=== PATIENT | male | born 1945 | race Caucasian/White ===

== ENCOUNTER 2017-04-29 14:06 | Inpatient (IN) | payer OTHER ==
[~2017-04-29] VITALS: Ht 152.4 cm; Wt 57.6 kg
[~2017-04-29 14:06] MED LIST: ACETAMINOPHEN325 M1 PO; ADVAIR HFA 115-12 GM IH; ASPIR 8181 MG PO; AUGMENTIN400 MG/53 PO; AVODART OR; AVODART PO; AZITHROMYCIN 2250 MG PO; CARDURA1 MG PO; CARDURA4 MG PO; CEFUROXIME250 MG PO; CIPROFLOXACIN250 M2 PO; COMBIVENT INH; DARVOCET-N 1001 EACH PO; FUROSEMIDE 40 M40 M1 PO; LEVAQUIN 500 M500 M2 PO; LEVAQUIN 750 M750 MG PO; LEVAQUIN PO; LOPRESSOR25 PO; MIRALAX17 G1 PO; MUCINEX600 MG PO; OCEAN45 ML NS; PERCOCET 5-3251 EACH PO; PREDNISONE 10 M10 M1 PO; PREDNISONE 10 M10 MG PO; PREDNISONE 20 M20 M1 PO; PREDNISONE50 MG PO; PYRIDIUM200 M1 PO; SENNA-DOCUSATE1 EACH PO; SINGULAIR 10 MG10 M1 PO; SYMBICORT160 MCG/4. INH; TRAMADOL 50 MG50 MG PO; VICODIN 5-5001 EACH PO; ZOLOFT 50 MG TA50 M1 PO; ZPAK PO; [UNRECOGNIZED DRUG - OTHER]
[2017-04-29 14:48] LABS: ABSOLUTE BASOPHILS 0.2 thou/uL (0.0-0.2); ABSOLUTE EOSINOPHILS 0.3 thou/uL (0.0-0.7); ABSOLUTE LYMPHOCYTES 2.2 thou/uL (0.8-5.3); ABSOLUTE MONOCYTES 1.3 thou/uL (0.0-1.2); BASOPHILS 1.2 %; EOSINOPHILS 1.4 %; HEMATOCRIT 38.1 % (42.0-52.0); HEMOGLOBIN 12.8 gm/dL (14.0-18.0); LYMPHOCYTES 12.3 %; MCH 30.5 pg (26.0-34.0); MCHC 33.4 g/dL (28.0-37.0); MCV 91.2 fL (80.0-100.0); MONOCYTES 7.3 %; MPV 9.4 fl. (7.2-11.1); NUCLEATED RBCS 0 /100WBC; PLATELET COUNT* 183 thou/uL (150-400); POLYS 77.8 %; RBC 4.18 mil/uL (4.50-6.00); RDW-CV 14.1 % (10.5-14.5)
[2017-04-29 14:54] LABS: ANION GAP 5 mmol/L (7-16); BUN 23 mg/dL (7-18); CALCIUM 9.2 mg/dL (8.5-10.1); CHLORIDE 102 mmol/L (98-107); CO2 31 mmol/L (21-32); GLUCOSE 146 mg/dL (70-99); POTASSIUM 4.4 mmol/L (3.5-5.1); SODIUM 138 mmol/L (136-145)
[2017-04-29 15:05] LABS: ALBUMIN 3.2 g/dL (3.4-5.0); ALKALINE PHOSPHATASE 78 U/L (46-116); LIPASE 240 U/L (73-393); NT-PRO BRAIN NAT PEPTIDE 70 pg/mL (<300); SGOT 19 U/L (15-37); SGPT 16 U/L (30-65); TOTAL BILIRUBIN 0.3 mg/dL (<0.1-1.0); TOTAL PROTEIN 7.1 g/dL (6.4-8.2); TROPONIN-I LEVEL <0.06 ng/mL (<0.06)
[2017-04-29 15:07] LABS: APTT 25.9 Seconds (25.0-31.3); PROTIME 9.7 Seconds (9.20-11.50)
--- NOTE | 2017-04-29 17:47 | EKG ---
[place] [address] ELECTROCARDIOGRAM REPORT Name: BILLYBHARAT DUGAN Room: [facility].#: [id number] Admission: 04/29/17 Attend Phys: Discharge: Date of : 41 Report #: [id number] THIS REPORT FOR: //name// [facility] ED Test Date: 2017-04-29 Test Time: 14:12:30 Pat Name: BHARAT CERVANTES Department: Room: Gender: Manager Supplier: Hardik CANO : 1945 Requested By: Carina Meraz Order Number: [id number] MD: Breezy Guy Measurements Intervals [place] Rate: 84 P: 77 OR: 107 QRS: 84 QRSD: 98 T: 61 QT: 353 QTc: 418 Interpretive Statements Sinus rhythm Short OR interval Borderline right axis deviation Baseline wander in lead(s) V6 Compared to ECG 04/07/2017 00:40:32 No significant changes Electronically Signed On 04-29-2017 17:47:48 PRIMARY CLINICIAN by Breezy Guy [email or web address] <ELECTRONICALLY SIGNED> By: Breezy Guy MD, [facility] 04/29/17 1747 1412 141 Breezy Guy MD, FAC /EPI
[2017-04-29 19:02] LABS: BE -1.2 mmol/L (-2 to +3); HCO3 23.6 mmol/L (22.0-26.0); PCO2 40.2 mmHg (35.0-45.0); pH 7.387 (7.340-7.450)
[2017-04-29 19:46] VITALS: BP 113/61
[2017-04-29 20:00] VITALS: BP 113/73
[2017-04-30] VITALS (7 sets, daily range): BP systolic 95–138; BP diastolic 59–82
--- NOTE | 2017-04-30 06:54 | NUR ---
TRAMADOL GIVEN, PATIENT SLEEPING. WILL CONT. TO MONITOR PAIN AND BREATHING.
--- NOTE | 2017-04-30 07:50 | NUR ---
RECEIVED REPORT. ASSUMED CARE OF PT AT 0730. VSS. CARDIAC MONITORING IN PLACE SR-ST. AM ASSESSMENT AND VITALS COMPLETED CHARTED. PT ALERT AND OREINTED. PT INITALLY ON RA-O2 SAT CHECKED AND PT WAS 79-80% ON RA. O2 2L PLACED AND PT'S O2 SAT INCREASED TO 93-94%. PT REPORTS SOA WITH EXERTION. PT ALSO REPORTS UPPER LEFT SIDED CHEST PAIN WITH BREATHING. NOTED VERY DIMINSHED/ABSENT LUNG SOUNDS ON THE LEFT SIDE. DR. FREEMAN PAGED. AWATING CALL BACK. PT DOES HAVE PULMONARY CONSULT. PT IS NPO AT THIS TIME. UNCLEAR REASONS FOR NPO WILL CLARIFY WITH ROUNDING PHYSICIAN. PT UP WITH STAND BY ASSISTANCE TO BATHROOM. FALL PERCATIONS IN PLACE. CALL LIGHT IS WITHIN REACH. WILL CONTINUE TO MONITOR FOR DURAIOTN OF SHIFT.
--- NOTE | 2017-04-30 10:28 | NUR ---
MET WITH PT TO DISCUSS HOME SITUATION/DC PLANNING. PT KNOWN TO CM FROM HOSPITAL STAY IN [place]. HE LIVES WITH HIS . PT USES O2 AND NEBULIZER THRU [facility]. HE HAD HH WITH [facility] BUT PER [facility], THEY ONLY SAW HIM FOR A SHORT TIME. 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 PT WAS PAINFUL AND WANTED TO SEE NURSE, SHE WAS CALLED. WILL FOLLOW
--- NOTE | 2017-04-30 17:14 | NUR ---
VSS. CARDIAC MONTIRING IN PLACE SR THIS SHIFT. PT REMAINS ON 2L PER NC. PT PARTIALLY PROGRESSING TOWARDS GOALS. PT REMAINS ALERT AND OREINTED. PT HAS HAD CONTINUED COMPLAINTS OF LEFT CHEST/SIDE PAIN- PRN TRAMADOL AND LIDOCAINE PATCH APPLIED. PT REPORTS RELIEF WITH LIDOCAINE PATCH. PT HAS HAD CONTINUED COMPLAINTS OF NAUSEA WITH EPISODES OF VOMITTING. PT IS UP WITH STAND BY ASSISTANCE TO BATHROOM. IV NOW SALINE LOCKCED. CALL LIGHT IS WITHIN REACH. WILL CONTINUE TO MONTIOR FOR DURAITON OF SHFIT.
[2017-05-01 03:37] VITALS: BP 88/53
--- NOTE | 2017-05-01 03:45 | NUR ---
PATIENT RESTING THROUGHOUT THE NIGHT. TRAMADOL FOR PAIN. REPORTS EFFECTIVE. NO SIGN OF DISTRESS. CONT. O2 AT 2 LITERS. WILL CONT. TO MONITOR.
[2017-05-01 07:45] VITALS: BP 86/59
--- NOTE | 2017-05-01 07:45 | NUR ---
RECEIVED REPORT. ASSUMED CARE OF PT AT 0730. PT'S BP LOW THIS AM. APPEARS PT WAS LOW THROUGHOUT THE NIGHT WELL. PT AFEBRILE. PT ALERT AND OREINTED X4 BUT FORGETFUL. PT ON 2L PER NC WIHT O2 SAT AT 93%. PT IS MORE CONVERSATIONAL THIS AM. PT REPORTS INTERMITTENT PAIN TO LEFT CHEST/SIDE THORUGHOUT THE NIGHT BUT REPORTS IT HAS IMPORVED. INFORMED PT TO CALL FOR ASSISTANCE WHEN NEEDING TO GET UP DUE TO LOW BP. PT COMMUNICATES UNDERSTANDING. PT AND SPOUSE INFORMED OF PLAN OF CARE. IV SALINE LOCKED. CALL LIGHT IS WITHIN REACH. WILL CONTINUE TO MONTIOR.
[2017-05-01 07:53] VITALS: BP 90/61
[2017-05-01 10:32] LABS: HEMATOCRIT 33.3 % (42.0-52.0); HEMOGLOBIN 11.1 gm/dL (14.0-18.0); MCHC 33.2 g/dL (28.0-37.0); MCV 90.3 fL (80.0-100.0); MPV 8.1 fl. (7.2-11.1); PLATELET COUNT* 252 thou/uL (150-400); RBC 3.69 mil/uL (4.50-6.00); RDW-CV 13.3 % (10.5-14.5); WBC 26.9 thou/uL (4.0-11.0)
[2017-05-01 10:39] LABS: CALCIUM 8.9 mg/dL (8.5-10.1); CREATININE 1.1 mg/dL (0.6-1.3); POTASSIUM 3.7 mmol/L (3.5-5.1)
--- NOTE | 2017-05-01 11:22 | CON ---
[address] [address] CONSULTATION Name: BHARAT CERVANTES Room: [address] ADM IN M.R.#: [id number] Admission: 04/29/17 Attend Phys: Vijay Scott Discharge: Date of : 41 Report #: [id number] THIS REPORT FOR: //name// CC: Jed Gonzalez REASON FOR CONSULTATION: Abnormal CT scan. HISTORY OF PRESENT ILLNESS: This is a 72-year-old male patient admitted to the hospital after he presented to the Emergency Room with sharp left-sided chest pain that he described as very severe, although he reported it was started in the morning on the day of hospitalization, but his told me it had been going on for a month. He was admitted to this facility in March with similar complaint. He was found to have pneumonia at that time. The pain is mostly in the left upper part of the chest anteriorly and gets worse with deep breathing. He denied any feeling shortness of breath or sputum production or wheezes and he is on 3 liters oxygen at home. He takes tramadol at home for pain. He denied nausea or vomiting or diaphoresis; however, this morning, he had some feeling of nausea. He had multiple CTs in the last few months, reviewed and we will discuss below. REVIEW OF SYSTEMS: He denied lower extremity edema, calf tenderness. He denied abdominal pain. He denied hemoptysis or increasing cough. The rest of the review system was negative. PAST MEDICAL HISTORY: 1. History of COPD, chronic respiratory failure on 3 liters oxygen at home at baseline. 2. History of dilated systolic congestive heart failure, cardiomyopathy. 3. History of bladder tumor. 4. History of previous transurethral resection of prostate. PAST SURGICAL HISTORY: Transurethral resection of prostate. ALLERGIES: HYDROCODONE AND TAMSULOSIN. FAMILY HISTORY: Negative for cardiac disease. SOCIAL HISTORY: Ex-smoker, quit around 10 years ago. Does not drink alcohol excessively, does not abuse drugs. HOME MEDICATIONS: He is on DuoNeb, tramadol, prednisone and he finished the course of Augmentin. PHYSICAL EXAMINATION: GENERAL: He looks in discomfort and pain and [place] [address] CONSULTATION Name: BHARAT CERVANTES Room: [address]#: [id number] Admission: 04/29/17 Attend Phys: Vijay Scott Discharge: Date of : 41 Report #: [id number] evaluation. He is on 2 liters oxygen. VITAL SIGNS: Blood pressure 138/82, breathing 20 times a minute, temperature 37.1. HEENT: Head normocephalic, atraumatic. Oral cavity moist mucous membranes. Mallampati of 2. External ear looks healthy and normal. Pupils reactive to light. No jaundice, not pale. He is hard of hearing NECK: Supple. No palpable lymph node. No palpable thyroid. Trachea is central. CHEST: Diminished air movement bilaterally with prolonged expiratory phase. No active wheezes. Some crackles at the right lung apex. HEART: S1, S2, no murmur. Palpation demonstrated tenderness in the left upper part of his chest. ABDOMEN: Benign, soft, lax, nontender, positive bowel sounds. LOWER EXTREMITIES: No edema. No calf tenderness. NEUROLOGIC: Awake, alert, oriented, moving 4 extremities spontaneously. No focal weakness. LYMPHATICS: No palpable lymph node. SKIN: Normal for age and race. PSYCHIATRIC: Mood and affect is good. Insight and judgment, looks anxious. LABORATORY DATA: His chest x-ray demonstrated right upper lobe consolidation with atelectasis. CT of the chest did not show pulmonary embolus, although it showed severe emphysematous changes and right upper lobe consolidation, very dense infiltrate that was reviewed with Radiology. It is consistent with pneumonia, although underlying mass could not be excluded. IMPRESSION: 1. Pneumonia. 2. Chronic obstructive pulmonary disease exacerbation. 3. Pulmonary infiltrate. PLAN: I discussed with Radiology. I reviewed the CT scan with the Radiology. This infiltrates consistent with pneumonia, although underlying mass cannot be excluded. I would treat as pneumonia at this point and we will treat him for COPD exacerbation. He needs a followup imaging after 8 weeks to ensure that the infiltrate was away. He is a high risk for intervention and biopsy at this point given the significant emphysematous changes. At one point, PET scan will be an option depending on the finding on the repeat imaging. I did discuss this in detail with the patient and his . However, the pain that he has in the left upper part of the chest that is described worsen with deep breathing and movement, I could not explain it based on the current findings. Recommend pain control. I will start him on Zofran. I will broader his antibiotic coverage. [address] [address] CONSULTATION Name: BHARAT CERVANTES Room: [address] IN M.R.#: [id number] Admission: 04/29/17 Attend Phys: Vijay Scott Discharge: Date of : 41 Report #: [id number] Thank you for this consult. <ELECTRONICALLY SIGNED> By: Familia Santos MD 05/01/17 1122 1123 0002Familia Santos MD /nt
--- NOTE | 2017-05-01 11:26 | CON ---
[address] [address] CONSULTATION Name: BHARAT CERVANTES Room: [address] IN M.R.#: [id number] Admission: 04/29/17 Attend Phys: Vijay Scott Discharge: Date of : 41 Report #: [id number] THIS REPORT FOR: //name// CC: Jed Gonzalez DATE OF SERVICE: 04/30/2017 ATTENDING PHYSICIAN: Dr. Gonzalez REASON FOR EVALUATION: Chronic pneumonitis, right side, possible postobstructive component. HISTORY OF PRESENT ILLNESS: Chart reviewed, patient examined. This is a 72 year old whom I am familiar with. He has been hospitalized at least 3 times in the last month and has underlying COPD and borderline oxygen requirement. He is admitted twice previously with what was felt to be pneumonitis. Interestingly, x-ray evidence suggests this is on the right side, although he has repeatedly had left-sided chest pain and had been treated, seemingly had improved, but worsened after he was discharged. It is not clear if he has had fevers. He has had very little cough and really minimal production. He has had a poor appetite and weight loss. Empirically started on combination broad-spectrum parenteral therapy with piperacillin, tazobactam and vancomycin. Pulmonary evaluation is pending. ALLERGIES: HYDROCODONE AND TAMSULOSIN. CURRENT MEDICATIONS: Include vancomycin, budesonide, ipratropium-albuterol inhaler, lidocaine patch, methylprednisolone and Zosyn. PAST MEDICAL HISTORY: History of COPD, history of cardiomyopathy with congestive heart failure, bladder tumor and previous transurethral resection of the prostate. FAMILY HISTORY: Available in the chart. REVIEW OF SYSTEMS: As above. PHYSICAL EXAMINATION: GENERAL: He appears chronically ill, undernourished with an acute component, is in vfta-aj-aavesarq distress. He has got significant hearing deficits as well. He is undernourished. VITAL SIGNS: Temperature 98.8, pulse 103, respirations 22 and blood pressure 138/82. SKIN: Warm, dry and no rashes. [place]ENT: [place] [address] CONSULTATION Name: BHARAT CERVANTES Room: [address] IN .R.#: [id number] Admission: 04/29/17 Attend Phys: Vijay Scott Discharge: Date of : 41 Report #: [id number] NECK: Supple. LUNGS: Diminished breath sounds and scattered crackles. HEART: Regular. I do not appreciate a murmur. There is some perhaps reproducible left-sided chest wall tenderness to palpation. ABDOMEN: Soft, nontender and nondistended. GENITOURINARY: Deferred. RECTAL: Deferred. LABORATORY DATA: Blood cultures sterile thus far. Lactic acid 0.7. ABGs: pH 7.387, pCO2 of 40.2, pO2 of 88.0 on 2 liters. CTA chest showed severe emphysematous changes. No evidence of PE, right upper lung mass or infiltrate, bilateral adrenal hyperplasia. Chest x-ray showed focal right upper lobe consolidation and volume loss. Electrolytes: Sodium 138, potassium 4.4, chloride 102, bicarbonate is 31, anion gap of 5, BUN and creatinine 23 and 1.0 and glucose of 146. LFTs are unremarkable. Albumin of 3.2, total protein of 7.1, estimated GFR of 73. CBC: White count of 18.0, H and H 12.8 and 38.1, platelets of 183 and a monocytosis of 1300. ASSESSMENT: Consolidative process, right upper lobe. Interestingly, he has left-sided chest pain. We will await pulmonary evaluation. I think given the three recent hospitalizations now may be became more invasive. Consider diagnostic as well as a therapeutic bronchoscopy. We will continue empiric antimicrobial therapy at this point. Seemingly is not a situation where he will be able to clear it with expectorating sputum. I discussed with the patient's spouse. <ELECTRONICALLY SIGNED> By: Matthew Eason MD 05/01/17 1126 1533 0100Jorandall Eason MD /nt
[2017-05-01 11:54] LABS: URINE BILIRUBIN NEGATIVE (Negative); URINE BLOOD 1+ (Negative); URINE CLARITY CLEAR; URINE COLOR DARK YELLOW; URINE GLUCOSE-RANDOM 1+ (Negative); URINE KETONES TRACE (Negative); URINE LEUKOCYTES NEGATIVE (Negative); URINE NITRITE NEGATIVE (Negative); URINE PROTEIN NEGATIVE (Negative); URINE SPECIFIC GRAVITY >= 1.030 (1.005-1.030); URINE UROBILINOGEN 0.2 E.U./dl (0.2-1.0)
[2017-05-01 12:16] LABS: SQUAMOUS 4-10 Moderate /LPF (0-3)
[2017-05-01 12:17] LABS: BACTERIA 1-9 Few /HPF (None Seen); CRYSTALS None Seen /LPF (None Seen); HYALINE CASTS 0-3 Few /LPF (None Seen); URINE RBC 0-2 Rare /HPF (0-2); URINE WBC None Seen /HPF (0-5)
[2017-05-01 14:32] LABS: ABSOLUTE MONOCYTES 0.3 thou/uL (0.0-1.2); PLATELET ESTIMATE ADEQUATE
[2017-05-01 14:33] LABS: ABSOLUTE LYMPHOCYTES 0.3 thou/uL (0.8-5.3); ABSOLUTE NEUTROPHILS 26.4 thou/uL (1.6-8.1); CLUMPED PLTS FEW
[2017-05-01 16:17] VITALS: BP 92/59
--- NOTE | 2017-05-01 17:46 | NUR ---
VSS. CARDIAC MONTIORING IN PLACE WITH NO CHANGES THIS SHIFT. PT REMAINS ALERT AND OREINTED. PT PROGRESSING TOWARDS GOALS. PT REMAINS ON 2L PER NC. IVF INITITED THIS SHIFT. PT'S PAIN WELL MANAGED WITH TRAMADOL THIS SHFIT. APPEARS PT HAS BEEN HAVING NAUSEA WITH VOMITING ASSOCIATED WITH MOVEMENTS THIS SHIFT WITHOUT RELIEF FROM ZOFRAN. PHYSICIAN NOTIED. NO NW ORDERS AT THIS TIME. PT IS UP WITH STAND BY ASSISTANCE TO BATHROOM. URINE SAMPLE AND MRSA SWAB SENT TO LAB. PT INFORMED OF PLAN OF CARE. CALL LIGHT IS WITHIN REACH. WILL CONTINUE OT MOTNIOR FOR DURATION OF SHIFT.
[2017-05-01 20:00] VITALS: BP 134/60; BP 88/55
[2017-05-01 23:41] VITALS: BP 90/50
[2017-05-02 03:49] VITALS: BP 87/60
--- NOTE | 2017-05-02 05:09 | NUR ---
CONT. ABX FOR PNEUMONIA. ALERT AND ORIENTED X 4. CONT. WITH RESP TXMTS. NO COMPLAINTS OF PAIN AFTER TRAMADOL AT BEGINNING OF SHIFT. WILL CONT. PLAN OF CARE.
--- NOTE | 2017-05-02 08:00 | NUR ---
RECEIVED REPORT. ASSUMED CARE OF PT AT 0730. VSS. CARDIAC MONTIORING IN PLACE SR. AM ASSESSMENT AND VITALS COMPLETED CHARTED. PT ALERT AND ORIENTED. PT APPERAS TO BE MORE IRRITABLE THIS AM. PT ON 2L PER NC WITH O2 SAT AT 90%. PT REPORTS INTERMITTENT PAIN TO LEFT SIDE OF CHEST. PRN PAIN MEDS AND LIDOCAINE PATCH GIVEN. PT IS UP AD MICHELLE IN ROOM. IVF INFUSING PER ORDERS. PT AND SPOUSE INFOMRED OF PLAN OF CARE. CALL LIGHT IS WITHIN REACH. WILL CONTINUE TO MONTIOR FOR DURAITON OF SHIFT.
[2017-05-02 08:30] VITALS: BP 97/65
[2017-05-02 11:30] VITALS: BP 101/69
[2017-05-02 15:30] VITALS: BP 96/64
--- NOTE | 2017-05-02 15:50 | NUR ---
PT. DECLINED O.T. EVAL STATING HE WAS INDEPENDENT WITH ADLS. PER NURSING NOTES, PT. HAS BEEN UP AD MICHELLE IN ROOM. NO O.T. SERVICES ARE INDICATED AT THIS TIME.
[2017-05-02 15:54] LABS: HEMATOCRIT 31.9 % (42.0-52.0); HEMOGLOBIN 10.5 gm/dL (14.0-18.0); MCHC 32.9 g/dL (28.0-37.0); MPV 8.6 fl. (7.2-11.1); RBC 3.5 mil/uL (4.50-6.00); RDW-CV 13.9 % (10.5-14.5); WBC 27.9 thou/uL (4.0-11.0)
--- NOTE | 2017-05-02 17:17 | NUR ---
VSS. CARDIAC MONTIORING IN PLACE WITH NO CHANGES THIS SHIFT. PT SOMEWHAT PROGRESSING TOWARDS GOALS. PT REMAINS ON 2L PER NC. IVF INFUSING-BOLUS GIVEN THIS SHIFT DUE TO INCREASED LACTIC ACID PER ORDERS. PT'S WBC COUNT INCREASING AND CXR SHOWS DEVELOPED INFLITRATE/EDEMA ON THE LEFT CHEST DR. FISH AND DR. [place] INFORMED. PT'S PAIN WELL MANAGED WITH TRAMADOL THIS SHIFT. PT IS UP WITH STAND BY ASSISTANCE TO BATHROOM. PT PLANNED TO HAVE BRONCH ON FRIDAY. PT AND SPOUSE INFORMED OF PLAN OF CARE. THEY COMMUNCIATE UNDERSTANDING. HOURLY ROUNDING. CALL LIGHT IS WITHIN REACH. WILL CONTINUE TO MONITOR FOR DURAITON OF SHFIT.
[2017-05-02 19:30] VITALS: BP 127/86
[2017-05-03] VITALS (12 sets, daily range): BP systolic 75–132; BP diastolic 56–88
--- NOTE | 2017-05-03 04:36 | NUR ---
PT UP TO USE RESTROOM AT 0350. PT SHORT OF BREATH UPON RETURING TO BED AND ASKED FOR BREATHING TREATMENT. RT ADMINISTERED DUONEB TREATMENT. RT SUGGESTED IV FLUIDS MAY BE CAUSING FLUID OVERLOAD. IV FLUIDS STOPPED AT 0415. CALLED DR LANDAVERDE AND RECIEVED ORDERS FOR STAT PORTABLE CHEST XRAY, PRN DUONEB TREATMENTS AND HOLD IV FLUIDS.
--- NOTE | 2017-05-03 04:40 | NUR ---
RADIOLOGY IN ROOM AT THIS TIME TO DO PCXR. PT BREATHING IMPROVED. PT STATES BREATHING TREATMENT HELPED.
[2017-05-03 04:41] LABS: HEMATOCRIT 33.6 % (42.0-52.0); HEMOGLOBIN 11.1 gm/dL (14.0-18.0); MCHC 33.1 g/dL (28.0-37.0); MCV 90.7 fL (80.0-100.0); MPV 8.6 fl. (7.2-11.1); RBC 3.71 mil/uL (4.50-6.00); RDW-CV 14.1 % (10.5-14.5); WBC 20.7 thou/uL (4.0-11.0)
--- NOTE | 2017-05-03 05:04 | NUR ---
CALLED DR LNADAVERDE AND REPORTED DAILY WEIGHT. RECIEVED ORDER FOR IV LASIX.
[2017-05-03 05:24] LABS: ALBUMIN 2.3 g/dL (3.4-5.0); CALCIUM 8.6 mg/dL (8.5-10.1); CREATININE 0.9 mg/dL (0.6-1.3); MAGNESIUM 2.1 mg/dL (1.8-2.4); POTASSIUM 4.3 mmol/L (3.5-5.1); TOTAL BILIRUBIN 0.3 mg/dL (<0.1-1.0); TOTAL PROTEIN 6.2 g/dL (6.4-8.2)
--- NOTE | 2017-05-03 05:28 | NUR ---
LAIX NOT AVAILABLE IN [facility] YET. SPOKE WITH PHARMACIST TO EXPEDITE ORDER.
--- NOTE | 2017-05-03 05:38 | NUR ---
IV LASIX GIVEN. PT INSTRUCTED TO USE URINAL FOR ACCURATE OUTPUT.
--- NOTE | 2017-05-03 07:00 | NUR ---
PT REPORTED SEVERE PAIN IN LOWER ABDOMEN. BLADDER SCAN SHOWED > 1100. INSERTED 16 SAMI COUDE CATHETER. 1600 IN BROOKE BAG AT THIS TIME. PT VOICES RELIEF.
--- NOTE | 2017-05-03 08:00 | NUR ---
PT RTESTING IN BED, APPEARS ALERT O X 4, DENIES CHEST PAIN, SOB, PAIN OR DISCOMFORT, PER NIGT SHIFT IV LASIX GIVEN , COUDE CATH PLACED. HAS ALREADY DIURESED 1999 PER BROOKE, VOIDED 500 ML, URINE APPEARS PINK IN COLOR
--- NOTE | 2017-05-03 18:39 | NUR ---
PT RESTING IN BED, REMAINS ALERT O X 4, DENIES CVHEST PAIN. DOES c/o L CHEST WALL TENDERNESS, WEARS LIDODERM PATCH. PT HAS DIURESED APPROX 5300 ML PER DAY SHIFT
[2017-05-04 00:30] VITALS: BP 107/66
[2017-05-04 04:00] VITALS: BP 119/69
--- NOTE | 2017-05-04 04:30 | NUR ---
ASSUMED PT CARE AT 1930, PT IS A&OX4, PT IS TRACIGN SNR AT THE START OF SHIFT, AROUND 2130 PT HR JUMPED UP SHRAVAN 220'S. EKG OBTAINED, EKG READ AFIB MD ROSALINA NOTIFIED, CARDIZEM GTT STARTED WITH BOLUS GIVEN. RATE WAS STILL ELEVATED, MORE ORDERS GIVEN. RATED STARTED TO COME DOWN AROUND 2300, AROUND 0100 PT CONVERTED BACK TO NSR, HEART RATE IN THE 80'S AND 90'S. DURING EPISODE OF AFIB RVR PT WAS BUMPED UP TO 5L NC. PT HAS A BROOKE TO DD, DRAINING PINK URINE. BED IN LOW POSITION, CALL LIGHT IN REACH, BED ALARM ON, YELLOW ARM BANMD AND SOCKS IN PLACE. HOURLY ROUNDING COMPLETED FOR PT SAFETY.
[2017-05-04 04:37] LABS: HEMATOCRIT 33.3 % (42.0-52.0); HEMOGLOBIN 11.2 gm/dL (14.0-18.0); MCH 29.9 pg (26.0-34.0); MCHC 33.6 g/dL (28.0-37.0); MCV 89.1 fL (80.0-100.0); MPV 8.2 fl. (7.2-11.1); NUCLEATED RBCS 0 /100WBC; PLATELET COUNT* 261 thou/uL (150-400); RBC 3.73 mil/uL (4.50-6.00); RDW-CV 13.7 % (10.5-14.5); WBC 16.2 thou/uL (4.0-11.0)
[2017-05-04 04:51] LABS: CALCIUM 8.7 mg/dL (8.5-10.1); MAGNESIUM 2.1 mg/dL (1.8-2.4); POTASSIUM 3.7 mmol/L (3.5-5.1)
[2017-05-04 07:49] LABS: ABSOLUTE LYMPHOCYTES 0.3 thou/uL (0.8-5.3); ABSOLUTE MONOCYTES 0.5 thou/uL (0.0-1.2); ABSOLUTE NEUTROPHILS 15.4 thou/uL (1.6-8.1); METAMYELOCYTES 1 %; MYELOCYTES 1 %; PLATELET ESTIMATE ADEQUATE
[2017-05-04 09:00] VITALS: BP 116/74
[2017-05-04 12:00] VITALS: BP 80/50
--- NOTE | 2017-05-04 13:52 | EKG ---
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 : 1945 Requested By: Ulysses Cortes Order Number: [id number] Anjana MD: Breezy Guy Measurements Intervals [place] Rate: 102 P: 83 MD: 99 QRS: 83 QRSD: 88 T: 20 QT: 357 QTc: 466 Interpretive Statements Sinus tachycardia Atrial premature complex Borderline right axis deviation Minimal ST depression, inferior leads Baseline wander in lead(s) V3 Compared to ECG 04/29/2017 14:12:30 Atrial premature complex(es) now present ST (T wave) deviation now present Sinus rhythm no longer present Short MD interval no longer present Electronically Signed On 05-04-2017 13:52:37 [employer]ION [employer] by Breezy Guy [email or web address] <ELECTRONICALLY SIGNED> By: Breezy Guy MD, FACC 05/04/17 1352 1320 1320 Breezy Guy MD, FACC /EPI
--- NOTE | 2017-05-04 13:54 | EKG ---
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 : 1945 Requested By: Jacek Gonzalez Order Number: [id number] Anjana MD: Breezy Guy Measurements Intervals [place] Rate: 191 P: TX: QRS: 81 QRSD: 81 T: 269 QT: 247 QTc: 441 Interpretive Statements Atrial fibrillation with rapid V-rate Borderline right axis deviation Repolarization abnormality, prob rate related Baseline wander in lead(s) I,II,III,aVL,aVF,V2,V3,V4,V5,V6 Compared to ECG 04/29/2017 14:12:30 Early repolarization now present Sinus rhythm no longer present Short TX interval no longer present Electronically Signed On 05-04-2017 13:54:22 FOOD AND BEVERAGE ASSISTANT by Breezy Guy [email or web address] <ELECTRONICALLY SIGNED> By: Breezy Guy MD, FACC 05/04/17 1354 29 29 Breezy Gyu MD, FAC /EPI
--- NOTE | 2017-05-04 13:56 | EKG ---
[place] [address] ELECTROCARDIOGRAM REPORT Name: BHARAT CERVANTES Room: [address] ADM IN M.R.#: [id number] Admission: 04/29/17 Attend Phys: Vijay Scott Discharge: Date of : 41 Report #: [id number] THIS REPORT FOR: //name// [facility] Test Date: 2017-05-04 Test Time: 01:15:12 Pat Name: BHARAT CERVANTES Department: Room: [address] Gender: M Visual Education Teacher: NEVILLE : 1945 Requested By: Jacek Gonzalez Order Number: [id number] Anjana MD: Breezy Guy Measurements Intervals [place] Rate: 94 P: 82 IL: 100 QRS: 73 QRSD: 82 T: 6 QT: 370 QTc: 463 Interpretive Statements Sinus rhythm Short [place] interval Minimal ST depression, inferior leads Baseline wander in lead(s) V6 Compared to ECG 04/29/2017 14:12:30 ST (T wave) deviation now present Electronically Signed On 05-04-2017 13:55:56 PERSONNEL MONITOR by Breezy Guy [email or web address] <ELECTRONICALLY SIGNED> By: Breezy Guy MD, FACC 05/04/17 1355 0115 0115 Breezy Guy MD, [facility] /EPI
[2017-05-04 16:00] VITALS: BP 104/66
--- NOTE | 2017-05-04 17:00 | NUR ---
RECEIVED BEDSIDE REPORT FROM NOC RN. PT IN SEMI-IQBAL'S POSITION UPON FIRST ENCOUNTER. A & O X4, FORGETFUL. ABLE TO COMMUNICATE NEEDS TO STAFF. VS OBTAINED. ASSESSMENT COMPLETE. SR PVC ON TELE MONITOR. NEEDED ITEMS AND CALL LIGHT WITHIN REACH. ORDER TO DC CARDIZEM GTTS. ORAL MED GIVEN WELL IV DIGOXIN PER JUN. CARDIZEM GTTS DC'D APPROX 1145. PT'S TO BEDSIDE VISITING TODAY WELL SON AND SO. PROVIDED THERAPEUTIC COMMUNICATION PT RELATED WHAT HE FELT ABOUT OVERNIGHT EVENTS DURING INITIATION OF CARDIZEM GTTS.
[2017-05-04 20:00] VITALS: BP 104/65
[2017-05-05] VITALS: BP 119/75
[2017-05-05 04:05] VITALS: BP 123/63
--- NOTE | 2017-05-05 04:48 | NUR ---
ASSUMED PT CARE AT 1930, PT IS A&OX4, PT DENIES ANY PAIN OR NEEDS AT THIS TIME. PT IS UP WITH ONE TO THE BR, PT HAS A BROOKE TO DD, DRAINING YELLOW URINE. BED IN LOW POSITION, CALL LIGHT IN REACH. PT IS TRACING NSR ON THE MONITOR, WITH OCCASIONAL PAC'S. PT IS ON 1.5L NC SATTING MID TO LOW 90'S. PT IS NPO TODAY FOR PENDING STRESS TEST. HOURLY ROUNDING COMPLETED FOR PT SAFETY.
[2017-05-05 05:39] LABS: HEMATOCRIT 32.6 % (42.0-52.0); HEMOGLOBIN 10.9 gm/dL (14.0-18.0); MCHC 33.5 g/dL (28.0-37.0); MCV 86.5 fL (80.0-100.0); MPV 8.8 fl. (7.2-11.1); RBC 3.76 mil/uL (4.50-6.00); RDW-CV 13.9 % (10.5-14.5); WBC 18.3 thou/uL (4.0-11.0)
[2017-05-05 05:42] LABS: ANION GAP 9 mmol/L (7-16); BUN 24 mg/dL (7-18); CALCIUM 8.4 mg/dL (8.5-10.1); CHLORIDE 108 mmol/L (98-107); CHOLESTEROL 209 mg/dL (<200); CO2 30 mmol/L (21-32); CREATININE 0.9 mg/dL (0.6-1.3); GLUCOSE 172 mg/dL (70-99); HDL CHOLESTEROL 59 mg/dL (>40); LDL CHOLESTEROL 137 mg/dL (<100); MAGNESIUM 2.1 mg/dL (1.8-2.4); POTASSIUM 3.7 mmol/L (3.5-5.1); SODIUM 147 mmol/L (136-145); TC:HDL 3.5 Ratio (Not establshd); TRIGLYCERIDE 68 mg/dL (<150); VLDL 14 mg/dL (<40)
[2017-05-05 05:44] LABS: SERUM ASSESSMENT Clear
[2017-05-05 08:00] VITALS: BP 110/54
--- NOTE | 2017-05-05 10:05 | NUR ---
ORDER RECEIVED FOR "OT EVALUATION AND TREATMENT" ON 01/02. FIRST ORDER RECEIVED ON 05/02. OT AT THAT TIME (KINGSLEY) REVIEWED CHART AND SPOKE WITH BOTH PATIENT AND RN. PT, AT THAT TIME, STATED THAT HE WAS I WITH ADL'S AND DECLINED EVAL. RN STATING THAT HE WAS UP AD MICHELLE. TODAY, SPOKE WITH RN (RASHARD) WHO STATES THAT HE IS STILL UP AD MICHELLE AND DOES NOT SEE NEED FOR OCCUPATIONAL THERAPY SERVICES. PT IS ON P.T. CASELOAD AND WILL DEFER.
--- NOTE | 2017-05-05 11:32 | NUR ---
ASSUMED RESPONSIBILITY OF PT THIS AM PT IS ALERT AND ORIENTED UP AD MICHELLE BM THIS AM STRESS TEST GIVEN TODAY BRONCHOSCOPY SHOULD BE DONE TOMORROW NPO AFTER MIDNIGHT AND ASPIRIN TO BE HELD NONPROD COUGH AT TIMES SOA NOTED WITH EXERTION 3L NC WHICH IS WHAT PT USES AT HOME C/O SOME PAIN TO LEFT SIDE OF CHEST LIDOCAINE PATCH HELPS AND PLACED AT BEDSIDE
--- NOTE | 2017-05-05 14:02 | NUR ---
CONTINUE TO FOLLOW. MET WITH PT'S THIS AM HE WAS OFF THE UNIT HAVING A STRESS TEST. CONFIRMED PT DOES WEAR O2 AT HOME AT NIGHT AND DAYTIME NEEDED. HE HAS CONCENTRATOR AND PORTABLE TANKS, CONFIRMED WITH [facility]. THEY WOULD LIKE NEW O2 SATS AT DC. PT HAS HAD HH WITH [facility] AND STATES THEY ARE INTERESTED IN THAT AGAIN. PT DID NOT RETURN TO WORK AFTER DC IN [place] AND UNSURE WHAT HIS PLAN IS REGARDING THAT AT THIS TIME, BUT STATES HE WANTS TO STAY INDEPENDENT LONG HE CAN. WILL FOLLOW [facility] [phone] FAX [phone] [facility] [phone] FAX [phone]
--- NOTE | 2017-05-05 15:26 | CARDNUC ---
[place] [address] CARDIAC NUCLEAR IMAGING REPORT Name: BHARAT CERVANTES Room: 230-[facility] IN [facility]#: [id number] Admission: 04/29/17 Attend Phys: Jacek Gonzalez Discharge: Date of : 41 Date of Service: 05/05/17 1526 Report #: [id number] THIS REPORT FOR: //name// APPROVED REPORT Exam: Nuclear Stress Test Indication: Chest pain, Dyspnea Patient Location: In-Patient Room #: 230 Stress Tech: Raissa Tolentino Stress Nurse: Ina Navarro RN Ht: 5 ft 11 in Wt: 138 lbs BSA: 1.80 m2 BMI: 19.2 Medical History Medical History: Atrial Fibrillation, COPD, PAD Medications: digoxin, diltiazem cd, metoprolol, asa, furosemide Allergies: hydrocodone, tamsulosin Cardiac Risk Factors: Age, PVD Exercise History: Sedentary NM EXAM: Myocardial Perfusion REST/STRESS Imaging Protocol: Rest Tc-99m/Stress Tc-99m 1 day Resting Data Rest SPECT myocardial perfusion imaging was performed in supine position 45 minutes following the intravenous injection of 11.1 mCi of Tc-99m Sestamibi. Time of rest injection: 1000 Date: 05/05/2017 The images were gated to evaluate regional wall motion and calculate left ventricular ejection fraction. Pharmacologic Stress Pharmacologic stress test was performed by injecting Regadenoson 0.4 mg IV push followed by the intravenous injection of 35.5 mCi of Tc-99m Sestamibi. Time of stress injection: 1130 Date: 05/05/2017 The images were gated to evaluate regional wall motion and calculate left ventricular ejection fraction. Prone imaging was performed. Study Quality Study: [place] [address] CARDIAC NUCLEAR IMAGING REPORT Name: BHARAT CERVANTES Room: [address] IN .R.#: [id number] Admission: 04/29/17 Attend Phys: Jacek Gonzalez Discharge: Date of : 41 Date of Service: 05/05/17 1526 Report #: [id number] Artifact: No artifact Study Data At rest, the left ventricular ejection fraction was 84%.. Post stress, the left ventricular ejection was 76%.. TID = 1.08. Perfusion Normal left ventricular perfusion. Wall Motion Normal left ventricular wall motion. Nuclear Conclusion ECG Findings: negative for ischemia Clinical Findings: negative for ischemia Nuclear Findings: negative for ischemia Exercise Capacity: not assessed Left Ventricular Function: normal Risk Study: low Myocardial perfusion images show no defect to suggest infarct or ischemia. Left ventricular systolic function is normal on gated studies. This is a low risk study. Interpreted by: Breezy Guy M.D. [facility] Electronically Approved: 05/05/2017 15:26:15 Stress Test Details Stress Test: Pharmacologic stress testing performed using 0.4 mg of regadenoson per 5 mL given IV over 10 seconds. Reason for pharmacologic stress test: physical limitation. HR Resting HR: 77 bpm Max Heart Rate (APMHR): 146 bpm Max HR Achieved: 97 bpm Target HR (85% APMHR): 124 bpm % of APMHR: 66 Recovery HR: 88 bpm BP Resting BP: 148/88 mmHg Max BP: 127/71 mmHg ECG Resting ECG: Sinus Rhythm, normal EKG Stress ECG: Sinus Rhythm, normal EKG ST Change: [place] [address] CARDIAC NUCLEAR IMAGING REPORT Name: BHARAT CERVANTES Room: [address]#: [id number] Admission: 04/29/17 Attend Phys: Jacek Gonzalez Discharge: Date of : 41 Date of Service: 05/05/17 1526 Report #: [id number] Arrhythmia: None Recovery ECG: Sinus Rhythm, normal EKG Recovery ST Change: None Recovery Arrhythmia: None Clinical Reason for Termination: Completed protocol Stress Symptoms: None Exercise duration: 0 min sec Exercise capacity: 1.0 METs The patient tolerated Lexiscan stress without complaint. Stress ECG Conclusion The baseline 12-lead EKG shows sinus rhythm without significant ST or T wave abnormality. EKGs obtained during and post Lexiscan infusion show sinus rhythm with no significant ST or T wave changes when compared to baseline. There were no stress-induced arrhythmias. <Conclusion> The baseline 12-lead EKG shows sinus rhythm without significant ST or T wave abnormality. EKGs obtained during and post Lexiscan infusion show sinus rhythm with no significant ST or T wave changes when compared to baseline. There were no stress-induced arrhythmias. <ELECTRONICALLY SIGNED> By: Breezy Guy MD, [facility] 05/05/17 1526 1526 1526 Breezy Guy MD, FACC /INF
[2017-05-05 15:41] VITALS: BP 93/58
--- NOTE | 2017-05-05 18:31 | NUR ---
PT HAS BEEN RESTING IN BED THE REST OF THE AFTERNOON GOOD APPETITE NEW IV TO RFA PATENT IV ABT CONT SOA WITH EXERTION 3L NC AND WEARS AT HOME NO CONCERNS AT THIS TIME
[2017-05-05 20:00] VITALS: BP 118/73
[2017-05-06] VITALS (7 sets, daily range): BP systolic 97–143; BP diastolic 53–84
--- NOTE | 2017-05-06 06:00 | NUR ---
ASSUMED PT CARE AT 1930, PT IS A&OX4, PT DENIES ANY PAIN OR NEEDS AT THIS TIME. PT IS TRACING NSR ON THE MONITOR, ON 3L NC. PT IS NPO AT THIS TIME FOR PENDING BRONCH THIS AM. PT SLEPT WELL THROUGHOUT THE NIGHT. BED IN LOW POSITION, CALL LIGHT IN REACH, HOURLY ROUNDING COMPLETED FOR PT SAFETY.
--- NOTE | 2017-05-06 10:06 | S ---
[place] [address] SURGICAL PATH RPT PROCEDURE Name: BILLYBHARAT DUGAN Room: [address] ADM IN M.R.#: [id number] Admission: 04/29/17 Date of : 41 Discharge: Report #: [id number] Path Case #: [id number] PATHOLOGY REPORT COLLECTION DATE: 05/01/2017 RECEIVED DATE: 05/01/2017 SUBMITTING PHYS: Dr. Annika Bhatti OTHER PHYS: Dr. Jed Gonzalez SPECIMEN(S) RECEIVED: A.Peripheral smear * * * * * * * * * * * * FINAL DIAGNOSIS: Peripheral blood smear: - Mild normocytic anemia and mild to moderate leukocytosis/neutrophilia. (See comment.) (CLW:yaima; 05/02/2017) COMMENT: Overall the peripheral blood has mild normocytic anemia and mild to moderate leukocytosis/neutrophilia. The platelet count is within the normal reference range. The etiology of the findings is unclear based entirely on slide review. Potential causes of normocytic anemia including anemia of chronic disease, treated and/or compensated vitamin and mineral deficiencies, acute blood loss, dilutional and primary bone marrow disorders. The leukocytosis/neutrophilia is likely a reactive condition. If persistent, progressive, and/or unexplained, BCR/ABL mutational analysis may provide additional information, if clinically indicated. Correlation with clinical history and additional laboratory data is recommended. (BONNIEW:yaima; 05/02/2017) PATHOLOGIST: Shannan Fitzpatrick M.D. REPORT ELECTRONICALLY SIGNED BY: Shannan Fitzpatrick M.D. DATE/TIME: 05/04/2017 21:50 * * * * * * * * * * * * MICROSCOPIC DESCRIPTION: CBC Data (05/01/17): WBC 26,900 /uL, RBC 3.69, hemoglobin 11.1 g/dL, hematocrit 33.3%, MCV 90.3 fL, MCH 30.0 pg, MCHC 33.2 g/dL, RDW 13.3%, and platelet count 250,000 /uL. Manual white blood cell differential: segs 97%, bands 1%, lymphs 1%, monos 1%. Peripheral Blood Smear: Cytomorphological examination of the Blanchard's stained peripheral blood smear confirms the provided data. Red blood cells show mild [facility] [address] [place] [address] SURGICAL PATH RPT PROCEDURE Name: BHARAT NUNES Room: [address] ADM IN [facility]#: [id number] Admission: 04/29/17 Date of : 41 Discharge: Report #: [id number] Path Case #: [id number] normocytic anemia with no significant anisopoikilocytosis. No schistocytes or microspherocytes are seen. White blood cells are mild to moderately increased in number. They are predominantly segmented neutrophils and are without significant dyspoiesis or significant left shift. Rare lymphocytes are predominantly small, round, and mature appearing with condensed chromatin and scant cytoplasm with admixed large granular lymphocytes and reactive appearing lymphocytes. On scanning, no markedly atypical lymphoid cells are seen. Monocytes are mature. Platelets are adequate in number and mainly normal in morphology with rare larger platelets noted. Occasional small platelet clumps are also seen. (CLW:yaima; 05/02/2017) GROSS PATHOLOGY: Received are three Blanchard stained peripheral blood smears labeled Bharat Nunes. CLINICAL HISTORY: A 72-year-old man with anemia and leukocytosis. Morphologic review of the peripheral blood smear is requested by the patient's physician. INITIAL CPT CODE(S): A; NC Professional services performed by [facility] at [facility] [address], [place] [address] Technical services performed by [facility] at [address] [place] [address], [address] [address]. [facility] [address] [place] [address] PHONE: [phone] DIRECTOR: Omari Mccormick M.D. * * * END OF REPORT * * *
--- NOTE | 2017-05-06 15:50 | NUR ---
CONTINUE TO FOLLOW, MET WITH PT AND . PT AMBULATED WITH THERAPY, RECOMMENDATION IS FOR A WALKER. CALLED AND GOT OK TO DISPENSE THRU [facility] CLOSET FROM [facility]. ORDER ON CHART. PT AND WANT TO USE [facility] AT [place]. CALLED AND FAXED INITIAL REFERRAL TO [facility]. WILL MIGUEL
--- NOTE | 2017-05-06 18:37 | NUR ---
ASSUMED CARE OF PT AT 0730. PT HAD BRONCH TODAY. RESULTS BACK-NO ENDOBRONCHIAL LESION, NO SIGNIFICANT SECRETION, REFER TO RESULTS. PT A&0X4. DENIES ANY PAIN OR SHORTNESS OF BREATH THROUGHOUT SHIFT. PT TRACING SR ON THE INGREDIENT SPECIALIST. ON 3L NC SAT UPPER 90'S. BROOKE TO DEPENDENT DRAINAGE. BROOKE TO BE DISCONTINUED ON 05/07 AT 0600 PER UROLOGY. PT UP WITH 1 ASSIST TO BATHROOM. AT BEDSIDE THROUGHOUT SHIFT. PT UP TO CHAIR MULTIPLE TIMES THROUGHOUT SHIFT. PT GOAL IS TO DISCHARGE HOME TOMORROW. AM ASSESSMENT CHARTED. MEDICATIONS PER JUN. PT REPOSITIONS SELF IN BED WITH REMINDERS. HOURLY ROUNDING OBSERVED. BED IN LOW POSITION. CALL LIGHT WITHIN REACH. WILL CONTINUE PLAN OF CARE.
[2017-05-07 01:17] VITALS: BP 113/81
[2017-05-07 04:15] VITALS: BP 107/64
--- NOTE | 2017-05-07 05:06 | NUR ---
ASSUMED CARE OF PT AT 1900 PT ALERT AND ORIENTED X4 VS AND ASSESSMENT STABLE. PT HAD TRAMADOL PRN FOR C/O R SIDE/LUNG PAIN NO FURTHER COMPLAINTS AND PT SLEPT THROUGH THE NIGHT. PT RUNNING NSR ON THE MONITOR. WILL MONITOR
[2017-05-07 08:00] VITALS: BP 116/68
--- NOTE | 2017-05-07 10:06 | OP ---
[facility] [address] [place] [address] OPERATIVE REPORT Name: BHARAT CERVANTES Room: [address] ADM IN M.R.#: [id number] Admission: 04/29/17 Attend Phys: Vijay Scott Discharge: Date of : 41 Report #: [id number] THIS REPORT FOR: //name// CC: Jed Gonzalez DATE OF SERVICE: 05/06/2017 TYPE OF PROCEDURE: Bronchoscopy. INDICATION: Right upper lobe infiltrate, evaluate the airway. FINDINGS: No endobronchial lesion, no significant secretions. Consent in the paper chart. DESCRIPTION OF PROCEDURE: The patient was brought into bronchoscopy suite. His left nostril was anesthetized using Xylocaine. After calling a timeout, the patient was premedicated with 1 mg of Versed and 50 mcg of fentanyl. After that, the bronchoscope was introduced through the left nostril. As I advanced the bronchoscope, 2% lidocaine was used to anesthetize the airways. The vocal cord looks healthy and normal with movement normal in abduction and adduction. The trachea looked totally normal. After that, I inspected the left lung. No endobronchial lesion down to the subsegmental bronchi. The right lung was also inspected, started by the right lower lobe down to subsegmental bronchi, right middle lobe and right upper lobe. No endobronchial lesions were noted within the reach of the bronchoscope. Also, no significant secretions were noted in the right lung, specifically in the right upper lobe. After that brushes were done from the anterior and posterior segments of the right upper lobe using cytology brush that was followed by washes in the right upper lobe with good return. During the procedure, the patient was placed on nonrebreather mask because he had episodes of desaturation, although were very brief to the mid 80s. He tolerated the procedure well afterward and we will continue to wean his oxygen down. <ELECTRONICALLY SIGNED> By: Kylee Gold MD 05/07/17 1006 1138 1220Familia Santos MD /nt
--- NOTE | 2017-05-07 10:19 | NUR ---
ORDERS NOTED FOR DC HOME WITH HH. MET [facility] PT AND . ORDER FOR WALKER OBTAINED AND OK'D BY [facility], CALL TO THERAPY TO DISPENSE AND ORDER FAXED TO [facility]. CALLED AND FAXED DC ORDERS TO [facility]. PT HAS HOME O2. HAPPY ABOUT GOING HOME. DISCUSSED WITH NURSE, AWAIT ID TO DIRECT ANTIBX. NO OTHER NEEDS ID'D
--- NOTE | 2017-05-07 13:14 | NUR ---
ASSUMED CARE OF PT AT 0730. PT IS A&O X4, VSS RUNNING A FIB ON THE MONITOR. BROOKE REMOVED THIS MORNING BY NIGHT SHIF. PT HAS VOIDED TWICE AND WAS BLADDER SCANNED AFTERH VOID WITH RESIDUALS BEING 564, AND 361. ARELI CARSON WAS CONTACTED TO COMMUNICATE RESULTS AND ORSERED A BROOKE BE PLACED. PT REFUSES TO HAVE A BROOKE INSERTD. THIS NURSE EDUCATED PT ON THE COMPLICATIONS OF RETENTION AND ALTERNATIVE METHODS TO AIDE COMPLETE ELIMINATION. ARELI MENDOZA NOTIFIED OF PT REFUSAL.
[2017-05-07] MEDS ORDERED: ATORVASTATIN CA40 MG PO (15:55)
[2017-05-07] MEDS ORDERED: ASPIR 8181 MG PO (15:55)
[2017-05-07] MEDS ORDERED: PULMICORT0.5 MG/22 INH (15:57)
[2017-05-07] MEDS ORDERED: DIGOXIN250 MCG PO (15:58)
[2017-05-07] MEDS ORDERED: CARDIZEM CD180 MG PO (16:02)
[2017-05-07] MEDS ORDERED: DUONEB 2.5-0.5 M3 ML INH (16:03)
[2017-05-07] MEDS ORDERED: LIDOCAINE1 EACH TRANSDERM (16:05)
[2017-05-07] MEDS ORDERED: PROTONIX40 M1 PO (16:06)
[2017-05-07] MEDS ORDERED: AUGMENTIN 875-1 EACH PO (16:09)
[2017-05-07 16:29] VITALS: BP 116/68
--- NOTE | 2017-05-07 17:51 | NUR ---
PT DISCHARGED HOME WITH SPOUSE VIA PRIVATE VEHICLE. PT AND SPOUSE VERBALZED UNDERSTANDING OF DC INSTRUCTIONS INCLUDING MEDICATION TEACHING AND URINARY RETENTION TEACHING. PT REFUSED TO HAVE A BROOKE PLACE PRIOR TO DISCHARGE ORDERED BY UROLOGY. PT TOOK ALL PRESCRIPTIONS AND ALL PERSONAL BELONGINGS AT DISCHARGE. IV AND PAPER SAMPLE CLERK REMOVED. PT HAD NO C/O PAIN OR DISTRESS AND VSS AT DISCHARGE.
--- NOTE | 2017-05-08 12:45 | CNG ---
[address] [address] CYTO-NONGYN REPORT PROCEDURE Name: BHARAT NUNES Room: [address] IN M.R.#: [id number] Admission: 04/29/17 Date of : 41 Discharge: 05/07/17 Report #: [id number] Path Case #: [id number] CYTOPATHOLOGY REPORT COLLECTION DATE: 05/06/2017 RECEIVED DATE: 05/07/2017 SUBMITTING PHYS: Dr. Familia Santos OTHER PHYS: Dr. Jed Gonzalez CLINICAL HISTORY: Lung mass, likely cancer with EXTE/Bronch, chest pain, SOA SPECIMEN(S) RECEIVED: A.Bronchial wash, RUL B.Bronchial brush, RUL * * * * * * * * * * * * FINAL DIAGNOSIS: A. Bronchial wash, RUL: - No malignant cells identified. - Bronchial epithelial cells, alveolar macrophages, and squamous cells present. -Fungal organisms morphologically consistent with Denise species are present. B. Bronchial brush, RUL: - No malignant cells identified. - Bronchial epithelial cells, alveolar macrophages, and squamous cells present. PATHOLOGIST: Alen Bustillos M.D. REPORT ELECTRONICALLY SIGNED BY: Alen Bustillos M.D. DATE/TIME: 05/08/2017 12:44 * * * * * * * * * * * * GROSS PATHOLOGY: A. Bronchial wash, RUL: The specimen is submitted unfixed, labeled "Bharat Nunes". Received by the Cytology Department is nine mL of cloudy pink fluid. One ThinPrep slide was prepared. B. Bronchial brush, RUL: The specimen is labeled "Bharat Nunes" and consists of two fixed slides. (mm 05.07.2017) JANITOR(S): SALEEM Muhammad(ASCP) INITIAL CPT CODE(S): A; 05726 B; 38270 Professional services performed by [facility] at [facility], [address] [place] [address]. Technical services performed by [facility] at [address] [place] [address], [address], [place] [address]. [place] [address] CYTO-NONGYN REPORT PROCEDURE Name: BHARAT NUNES Room: [address] IN M.R.#: [id number] Admission: 04/29/17 Date of : 41 Discharge: 05/07/17 Report #: [id number] Path Case #: [id number] [facility] [address] [place] [address], [address] [place] [address] PHONE: [phone] DIRECTOR: Omari Mccormick M.D. * * * END OF REPORT * * *
--- NOTE | 2017-05-12 08:34 | CON ---
[facility] [address] [place] [address] CONSULTATION Name: BHARAT CERVANTES Room: [address] IN M.R.#: [id number] Admission: 04/29/17 Attend Phys: Vijay Scott Discharge: 05/07/17 Date of : 41 Report #: [id number] THIS REPORT FOR: //name// CC: Jed Gonzalez INDICATION: Atrial fibrillation with rapid ventricular response. HISTORY OF PRESENT ILLNESS: The patient is a 72-year-old gentleman who was admitted to the hospital several days ago with pneumonia. Yesterday, he started to have some paroxysms of tachycardia that appeared to be atrial fibrillation on tele monitor. The patient remained asymptomatic. On occasion, his heart rate would be significantly accelerated above 200 beats per minute. Despite this, he remained asymptomatic. He did not have chest pain. Serial troponins did bump to 0.16. This morning after Cardizem bolus and drip as well as digoxin bolus, he is now in sinus rhythm with a heart rate slightly above 100. He is not having chest pain this morning except with deep breath. X-ray suggests left-sided pneumonia. He is afebrile. He does have a history of COPD. He quit smoking 10 years ago. He uses oxygen chronically. PAST MEDICAL HISTORY: 1. COPD. 2. History of bladder cancer, status post resection in 2009 and 2016. 3. Renal cell mass, status post resection/intervention. 4. Lung mass, presently being worked up. 5. Celiac artery stenosis, status post stent. PAST SURGICAL HISTORY: 1. Bladder cancer surgery as outlined above. 2. Remote laparotomy. 3. Renal cell tumor removed. 4. Prostate surgery. ALLERGIES: FLOMAX. HOME MEDICATIONS: Combivent inhaler 1 puff p.r.n., prednisone 40 mg daily, tramadol 50 mg q. 6 hours p.r.n. FAMILY HISTORY: Noncontributory. SOCIAL HISTORY: The patient does not drink alcohol. He quit smoking 10 years ago. He is . REVIEW OF SYSTEMS: A 14-point review of systems: GENERAL: He denies convulsions, seizures or focal paralysis. In general, there is no unexplained [place] [address] CONSULTATION Name: BHARAT CERVANTES Room: [address]#: [id number] Admission: 04/29/17 Attend Phys: Vijay Scott Discharge: 05/07/17 Date of : 41 Report #: [id number] RESPIRATORY: He denies cough or sputum production. He reports history of pneumonia and emphysema. CARDIOVASCULAR: He reports no palpitations, but he did have some chest discomfort with deep breathing. He reports dyspnea. He denies orthopnea or paroxysmal nocturnal dyspnea. He denies any history of syncope. He denies any history of heart murmur. He reports edema 2 weeks ago. ENDOCRINE: He denies diabetes or thyroid disease. GASTROINTESTINAL: He reports some vomiting, but no hematemesis. He has a remote history of ulcer with no problems recently. He denies blood in the stool. He denies jaundice or hepatitis. GENITOURINARY: He denies any current dysuria, hematuria, although he has had this in the past. HEMATOLOGIC AND LYMPHATIC: He denies any history of anemia, bleeding disorder or blood clots. He has a history of bladder cancer as outlined above. ALLERGY AND IMMUNOLOGIC: He denies seasonal allergies. He has medical allergies as outlined above. PSYCHIATRIC: He denies depression or anxiety. MUSCULOSKELETAL: He denies arthritis or connective tissue diseases. SKIN: He denies any recent rashes, hives or chronic skin conditions. EYES: He has glasses. He denies any acute loss in vision. EARS, NOSE, MOUTH, AND THROAT: He has decreased hearing. He denies epistaxis. He wears dentures. PHYSICAL EXAMINATION: VITAL SIGNS: Presently stable. Blood pressure 119/69, pulse 92 and regular. GENERAL: This is a thin, pleasant, elderly male, in no distress. Mood and affect appropriate. HEENT: The patient is wearing glasses. O2 nasal cannula is in place. Normocephalic, atraumatic. Extraocular muscles are intact. Mucous membranes are moist. NECK: Shows no jugular venous distention. There are no carotid bruits. CHEST: Reveals diminished breath sounds throughout with prolonged expiration. I do not appreciate wheezes or rales. CARDIAC: Reveals a regular rhythm with normal S1 and S2. I do not appreciate gallop or murmur. ABDOMEN: Reveals normal bowel sounds. The abdomen is soft and nontender. EXTREMITIES: Shows no edema. Peripheral pulses palpable. SKIN: Warm and dry. LABORATORY DATA: Reviewed. Electrolytes within normal limits. BUN 23, creatinine 1.0, serum glucose 237. LFTs within normal limits. Troponin initially less than 0.06, then 0.16, then 0.13. White blood cell count 16.2, hemoglobin 11.2, platelet count 261,000. Chest x-ray shows left lung infiltrate consistent with focal pneumonitis or pneumonia. Persistent chronic changes in the right upper lobe and right [facility] [address] [place] [address] CONSULTATION Name: BHARAT CERVANTES Room: [address] IN [facility].#: [id number] Admission: 04/29/17 Attend Phys: Vijay Scott Discharge: 05/07/17 Date of : 41 Report #: [id number] hemithorax concerning for mass. IMPRESSION AND RECOMMENDATIONS: 1. Paroxysmal atrial fibrillation with rapid ventricular response. The patient has responded nicely to diltiazem drip and digoxin boluses. We will switch to oral medications today and order Lopressor IV p.r.n. should he have recurrence of his atrial fibrillation. ADA score is 0. We will not start anticoagulation at this point in time. 2. Atherosclerosis as evidenced by the celiac artery stenting in the past as well as atherosclerosis noted on CT scans. I would like to check a fasting lipid profile. We will start daily aspirin. May need statin agent. 3. Pneumonia, per primary physician and Pulmonology. 4. Right upper lobe mass. Plan for bronchoscopy in the near future. 5. Chest pain, somewhat atypical. We will obtain stress testing tomorrow to further evaluate. <ELECTRONICALLY SIGNED> By: Breezy Guy MD, FACC 05/12/17 0834 1022 1907Micmike Guy MD, FACC /nt
== END 2017-05-07 17:00 | disposition home health service (06) | DRG 177 ==
LOC: M.ERS 14:06 → M.TBA-ER 18:19 → M.2W 18:19
PROVIDERS: Family Medicine; Internal Medicine; Internal Medicine Cardiovascular Disease; Internal Medicine Pulmonary Disease; Personal Emergency Response Attendant; ADMIT Internal Medicine
PROC: 0BDC8ZX Extraction of Right Upper Lung Lobe, Via Natural or Artificial Opening Endoscopic, Diagnostic (ICD-10-PCS; principal; 2017-05-06)
DX: J69.0 Pneumonitis due to inhalation of food and vomit (principal); J96.21 Acute and chronic respiratory failure with hypoxia; N17.0 Acute kidney failure with tubular necrosis; J44.0 Chronic obstructive pulmonary disease with (acute) lower respiratory infection; I50.20 Unspecified systolic (congestive) heart failure; J44.1 Chronic obstructive pulmonary disease with (acute) exacerbation; E44.0 Moderate protein-calorie malnutrition; R65.10 Systemic inflammatory response syndrome (SIRS) of non-infectious origin without acute organ dysfunction; J15.6 Pneumonia due to other Gram-negative bacteria; R91.8 Other nonspecific abnormal finding of lung field; I48.0 Paroxysmal atrial fibrillation; I25.10 Atherosclerotic heart disease of native coronary artery without angina pectoris; D72.829 Elevated white blood cell count, unspecified; E86.0 Dehydration; R33.9 Retention of urine, unspecified; N40.0 Benign prostatic hyperplasia without lower urinary tract symptoms; Z85.51 Personal history of malignant neoplasm of bladder; Z79.899 Other long term (current) drug therapy; Z88.6 Allergy status to analgesic agent; Z88.8 Allergy status to other drugs, medicaments and biological substances; Z87.891 Personal history of nicotine dependence

== ENCOUNTER 2017-05-24 09:18 | Inpatient (IN) | payer OTHER ==
[~2017-05-24] VITALS: Ht 180.3 cm; Wt 56.2 kg
[~2017-05-24 09:18] MED LIST changes: +ATORVASTATIN CA40 MG PO; +AUGMENTIN 875-1 EACH PO; +CARDIZEM CD180 MG PO; +DIGOXIN250 MCG PO; +DUONEB 2.5-0.5 M3 ML INH; +LIDOCAINE1 EACH TRANSDERM; +PROTONIX40 M1 PO; +PULMICORT0.5 MG/22 INH
[2017-05-24 09:23] VITALS: BP 117/72
[2017-05-24 10:18] LABS: ABSOLUTE BASOPHILS 0.1 thou/uL (0.0-0.2); ABSOLUTE EOSINOPHILS 0.1 thou/uL (0.0-0.7); ABSOLUTE LYMPHOCYTES 1.1 thou/uL (0.8-5.3); ABSOLUTE MONOCYTES 0.4 thou/uL (0.0-1.2); ABSOLUTE NEUTROPHILS 8.4 thou/uL (1.6-8.1); BASOPHILS 0.8 %; EOSINOPHILS 0.7 %; HEMATOCRIT 34.5 % (42.0-52.0); HEMOGLOBIN 11.6 gm/dL (14.0-18.0); LYMPHOCYTES 10.7 %; MCHC 33.7 g/dL (28.0-37.0); MCV 89.2 fL (80.0-100.0); MONOCYTES 3.8 %; MPV 7.8 fl. (7.2-11.1); NUCLEATED RBCS 0 /100WBC; PLATELET COUNT* 282 thou/uL (150-400); RBC 3.87 mil/uL (4.50-6.00); RDW-CV 14.2 % (10.5-14.5); WBC 9.9 thou/uL (4.0-11.0)
[2017-05-24 10:23] LABS: CALCIUM 8.7 mg/dL (8.5-10.1); POTASSIUM 4.5 mmol/L (3.5-5.1)
[2017-05-24 10:28] LABS: ALBUMIN 2.9 g/dL (3.4-5.0); TOTAL BILIRUBIN 0.4 mg/dL (<0.1-1.0); TOTAL PROTEIN 7.3 g/dL (6.4-8.2)
[2017-05-24 13:07] VITALS: BP 144/68
[2017-05-24 13:30] VITALS: BP 120/72
[2017-05-24 20:00] VITALS: BP 120/68
[2017-05-25] VITALS: BP 100/67
[2017-05-25 04:00] VITALS: BP 121/67
[2017-05-25 09:30] VITALS: BP 100/79
[2017-05-25 12:05] VITALS: BP 110/70
--- NOTE | 2017-05-25 12:35 | EKG ---
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 Operator: Hardik LORD : 1945 Requested By: Lucien Barnett Order Number: [id number] MD: Codey Camejo Measurements Intervals [place] Rate: 77 P: 89 DC: 118 QRS: 91 QRSD: 98 T: -26 QT: 378 QTc: 428 Interpretive Statements Sinus rhythm Borderline short DC interval Right axis deviation Borderline repolarization abnormality Compared to ECG 05/04/2017 01:15:12 Right-axis deviation now present ST (T wave) deviation no longer present Electronically Signed On 05-25-2017 12:34:52 TELEVISION NEWS VIDEO EDITOR by Codey Camejo [email or web address] <ELECTRONICALLY SIGNED> By: Loki Camejo MD, [facility] 05/25/17 1234 1003 1003 Loki Camejo MD, [facility] /EPI
--- NOTE | 2017-05-25 12:42 | EKG ---
[place] [address] ELECTROCARDIOGRAM REPORT Name: BHARAT CERVANTES Room: [address] ADM IN M.R.#: [id number] Admission: 05/24/17 Attend Phys: Sharon Prajapati MD Discharge: Date of : 41 Report #: [id number] THIS REPORT FOR: //name// [facility] Test Date: 2017-05-25 Test Time: 07:45:04 Pat Name: BHARAT CERVANTES Department: Room: [address] Gender: M It Quality Analyst: RN : 1945 Requested By: Loki Camejo Order Number: [id number] Reading MD: Codey Camejo Measurements Intervals [place] Rate: 65 P: 64 VT: 86 QRS: 89 QRSD: 89 T: 43 QT: 407 QTc: 424 Interpretive Statements Sinus rhythm Short VT interval Borderline right axis deviation Minimal ST elevation, anterior leads Compared to ECG 05/04/2017 01:15:12 No significant changes Electronically Signed On 05-25-2017 12:42:43 SPECIAL TAX AUDITOR by Codey Camejo [email or web address] <ELECTRONICALLY SIGNED> By: Loki Camejo MD, [facility] 05/25/17 1242 0745 0745 Loki Camejo MD, [facility] /EPI
[2017-05-25 16:00] VITALS: BP 114/68
[2017-05-25 20:45] VITALS: BP 105/54
[2017-05-26] VITALS (7 sets, daily range): BP systolic 82–104; BP diastolic 46–63
--- NOTE | 2017-05-26 17:00 | 2DMMODE ---
[place] [address] 2 D/M-MODE ECHOCARDIOGRAM Name: BHARAT CERVANTES Room: [facility]#: [id number] Admission: 05/24/17 Attend Phys: Sharon Prajapati, Discharge: Date of : 41 Date of Service: 05/26/17 1659 Report #: [id number] THIS REPORT FOR: //name// APPROVED REPORT Study performed: 05/26/2017 14:14:01 EXAM: Comprehensive 2D, Doppler, and color-flow Echocardiogram Patient Location: In-Patient Room #: Critical [facility] hospital Status: routine BSA: 1.73 HR: 72 bpm BP: 104/56 mmHg Rhythm: NSR Other Information Study Quality: Adequate Technically limited study due to subcostal views only. Indications Chest Pain 2D Dimensions LVEF(%): 79.75 (>50%) IVSd: 9.07 (7-11mm) LVOT Diam: 19.09 (18-24mm) LVDd: 33.06 mm PWd: 8.50 (7-11mm) LVDs: 17.45 (25-40mm) Aortic Root: 27.91 mm Rojas's LVEF: 79.75 % Aortic Valve AoV Peak Mathieu.: 1.58 m/s AO Peak Gr.: 10.02 mmHg LVOT Max P.42 mmHg AO Mean Gr.: 5.11 mmHg LVOT Mean P.35 mmHg LVOT Max V: 1.16 m/s AO V2 VTI: 25.26 cm LVOT Mean V: 0.69 m/s MICHAEL (VTI): 2.51 cm2 LVOT V1 VTI: 22.11 cm Pulmonary Valve PV Peak Mathieu.: 1.37 m/s PV Peak Gr.: 7.50 [place] [address] 2 D/M-MODE ECHOCARDIOGRAM Name: BHARAT CERVANTES Room: [address] IN .R.#: [id number] Admission: 05/24/17 Attend Phys: Sharon Prajapati, Discharge: Date of : 41 Date of Service: 05/26/17 1659 Report #: [id number] The left ventricle is normal size. There is normal LV segmental wall motion. There is normal left ventricular wall thickness. Left ventricular systolic function is normal. The left ventricular ejection fraction is within the normal range. LVEF is 60-65%. The left ventricular diastolic function is normal. Right Ventricle The right ventricle is normal size. The right ventricular systolic function is normal. Atria The left atrium size is normal. The right atrium size is normal. Aortic Valve The aortic valve is normal in structure. No aortic regurgitation is present. There is no aortic valvular stenosis. Mitral Valve The mitral valve is normal in structure. There is no mitral valve regurgitation noted. No evidence of mitral valve stenosis. Tricuspid Valve The tricuspid valve is normal in structure. Unable to assess PA pressure. Trace tricuspid regurgitation. Pulmonic Valve The pulmonary valve is normal in structure. There is no pulmonic valvular regurgitation. Great Vessels The aortic root is normal in size. IVC is normal in size and collapses with >50% inspiration Pericardium There is no pericardial effusion. <Conclusion> The left ventricle is normal size. There is normal left ventricular wall thickness. Left ventricular systolic function is normal. The left ventricular ejection fraction is within the normal range. LVEF is 60-65%. The right ventricle is normal size. The right ventricular [place] [address] 2 D/M-MODE ECHOCARDIOGRAM Name: BHARAT CERVANTES Room: [address] IN [facility]#: [id number] Admission: 05/24/17 Attend Phys: Sharon Prajapati, Discharge: Date of : 41 Date of Service: 05/26/17 1659 Report #: [id number] The left atrium size is normal. The aortic valve is normal in structure. The mitral valve is normal in structure. The tricuspid valve is normal in structure. IVC is normal in size and collapses with >50% inspiration There is no pericardial effusion. There is normal LV segmental wall motion. <ELECTRONICALLY SIGNED> By: Haroldo Luis MD, FACC 05/26/171658 58 58 Haroldo Luis MD, FACC /INF
[2017-05-27] VITALS (19 sets, daily range): BP systolic 100–156; BP diastolic 63–79
[2017-05-27 05:40] LABS: APTT 25.2 Seconds (25.0-31.3); INR 1.1; PROTIME 10.3 Seconds (9.20-11.50)
[2017-05-27 06:07] LABS: BUN 20 mg/dL (7-18); CALCIUM 8.8 mg/dL (8.5-10.1); CHOLESTEROL 225 mg/dL (<200); CO2 29 mmol/L (21-32); GLUCOSE 127 mg/dL (70-99); HDL CHOLESTEROL 53 mg/dL (>40); LDL CHOLESTEROL 150 mg/dL (<100); TC:HDL 4.2 Ratio (Not establshd); TRIGLYCERIDE 112 mg/dL (<150); VLDL 22 mg/dL (<40)
[2017-05-27 06:16] LABS: SERUM ASSESSMENT Clear
[2017-05-27 07:57] LABS: SODIUM 144 mmol/L (136-145)
[2017-05-27 07:58] LABS: ANION GAP 9 mmol/L (7-16); CHLORIDE 106 mmol/L (98-107)
[2017-05-27 11:01] LABS: APTT 25.6 Seconds (25.0-31.3); PROTIME 10.1 Seconds (9.20-11.50)
[2017-05-27] MEDS ORDERED: DUONEB 2.5-0.5 M3 ML INH (11:08)
--- NOTE | 2017-05-27 17:12 | CON ---
[address] [address] CONSULTATION Name: BILLYBHARAT DUGAN Room: [address] IN M.R.#: [id number] Admission: 05/24/17 Attend Phys: Sharon Prajapati MD Discharge: Date of : 41 Report #: [id number] THIS REPORT FOR: //name// CC: Jed Prajapati CARDIOLOGY CONSULTATION HISTORY OF PRESENT ILLNESS: I was asked by Dr. Barnett in the ER to see this 72-year-old white male in cardiology consultation for evaluation and treatment of chest pain. His chest pain is associated with minimal ST changes in the inferior leads on his EKG. They are minimally different than an EKG from last month. This man is a very poor historian and he is quite noncompliant. He comes into the hospital frequently here, he was here in April. He was there only about 3 weeks ago. He was here in March as well. His chest pain began with nausea and vomiting. He had nausea and vomiting yesterday at 1 p.m. He had a sweat with it. Then he had chest pain last night that he described as dull. It was across his entire chest. It was a 5 or 6 on a scale of 10. There was some left shoulder pain associated with it. He had a lot of belching and vomiting last night, although small amounts. There was no shortness of breath. The pain came and went several times. His troponin was normal. In the ER, his EKG only showed minimal changes mentioned above. He was placed on digoxin on his last visit. He was supposed to have been taking it, although he tells me he is taking no medicines now. He apparently has been taking some digoxin as his digoxin level was 0.2. This man denies any additional sweating other than yesterday when he had the nausea and vomiting at about 1:00 p.m. He does not think food aggravates his problems, is not relieved by food. He has not tried nitroglycerin. The only discomfort he gets is in his left shoulder. He does take Advil PM every night at bedtime to sleep. He takes it to sleep not because he has any pain at night. I have advised him to not take the Advil any more at night and to just take [id number] Benadryl for sleep at night. He has not had syncope or near syncope. Coronary risk factors include past history of smoking, he quit 10 years ago. He has mild hypercholesterolemia. He says his cholesterol is only 8 points above normal. He denies diabetes or high blood pressures. No family history of heart disease. He has not had renal disease or peripheral vascular disease. He has never had a stroke or TIA, does not have claudication. He does have paroxysmal atrial fibrillation that was found when he was here last month. He had pneumonia at that time and was getting inhalation treatments and had short runs of what appear to be atrial fibrillation with rapid ventricular response. For that reason, he was placed on digoxin and Cardizem. He was sent home on that. He was also sent home on aspirin, but he told me he was not taking aspirin. He did have a stress test when he was here last time that is on May 05, so really only about 3 weeks ago and it was a Lexiscan Cardiolite stress test that was negative for ischemia. He had an echo about a month before that in March that was normal. That was done on March 28. His ejection fraction was 65-70. There are no segmental wall motion abnormalities. There was no diastolic dysfunction. He did have [address] [address] CONSULTATION Name: BHARAT CERVANTES Room: [address] IN ..#: [id number] Admission: 05/24/17 Attend Phys: Sharon Prajapati MD Discharge: Date of : 41 Report #: [id number] mild pulmonary hypertension, however, with pressure of 35-40. There was mild tricuspid regurgitation. There is no family history of coronary artery disease. No family history of sudden . SOCIAL HISTORY: He is , used to work at [employer]. Does not smoke, drink or use illegal drugs. MEDICATIONS: He is taking no medicines he tells me. ALLERGIES: He has no allergies. REVIEW OF SYSTEMS: Positive for erectile dysfunction, pneumonia, emphysema, wearing glasses, decreased hearing and wearing dentures. Otherwise, his review of systems is negative for some 40 different complaints of 14 different system categories including central nervous system, general, respiratory, cardiovascular, endocrine, gastrointestinal, genitourinary, hematologic, lymphatic, allergic, immunologic, psychiatric, musculoskeletal, skin, eyes, ears, nose and throat. Please see review of system form for details and negatives in review of systems. PHYSICAL EXAMINATION: GENERAL: He presents as a well-developed, well-nourished white male in no acute distress. VITAL SIGNS: Pulse was 75 and regular, blood pressure was 120/83, respirations were 16 and regular, temperature is 36.6. HEENT: His head was atraumatic. Eyes clear. NECK: Supple. There is no jugular venous distention or hepatojugular reflux. Thyroid is not enlarged. There is no adenopathy. SKIN: Warm and dry. MOUTH: Mucous membranes are moist. LUNGS: Clear to auscultation and percussion. HEART: Revealed normal first and second heart sound. There is soft S4. There is no S3. There are no murmurs, rubs, thrills, heaves or gallops. PMI is nondisplaced. ABDOMEN: Soft, flat, nontender, no palpable masses and no organomegaly. EXTREMITIES: Reveal no cyanosis, clubbing or edema. NEUROLOGIC: The patient mentated normally, talked normally and moved all extremities normally. DIAGNOSTIC DATA: EKG is as described above. Chest x-ray was actually improved from his chest x-ray from little over 3 weeks ago. It showed improvement of the infiltrates in his lungs. Apparently he was admitted for pneumonia at that time. IMPRESSION: 1. Chest pain, possibly related to [place] [address] CONSULTATION Name: BHARAT CERVANTES Room: [address] IN [facility].#: [id number] Admission: 05/24/17 Attend Phys: Sharon Prajapati MD Discharge: Date of : 41 Report #: [id number]. 2. Minimal ST changes. 3. Chronic obstructive pulmonary disease. 4. Lung mass that may really have been infiltrate. 5. Paroxysmal atrial fibrillation. 6. Medical noncompliance. RECOMMENDATION: I would monitor to make sure he is not having more atrial fibrillation and recheck troponins. Troponins were negative initially. I would recheck an EKG tomorrow and start him on some Protonix as I am not entirely convinced that this is in all GI and give him a plain aspirin daily. I would consider cardiac catheterization on this man on Friday or Friday. Thank you very much for asking me to see the patient. If there are any questions, please feel free to contact me. <ELECTRONICALLY SIGNED> By: Loki Camejo MD, FACC 05/27/17 1712 1623 0025F. Codey Camejo MD, FACC /nt
--- NOTE | 2017-05-27 17:15 | CARD ---
[address] [address] CARDIAC CATH REPORT Name: BHARAT CERVANTES Room: 232-P ADM IN M.R.#: [id number] Admission: 05/24/17 Attend Phys: Sharon Prajapati MD Discharge: Date of : 41 Report #: [id number] THIS REPORT FOR: //name// APPROVED REPORT Patient Details Patient Status: In-Patient Room #: 232 The patient is a 72 year-old male Event Personnel Breezy Guy Manufacturing Project Manager, Vianey Conley RN Metal Trades Instructor, Dean Llamas (R) Monitor, Enrique Aldrich Holkins, John Ic Design Manager Procedures Performed Left heart catheterization left ventriculography selective coronary arteriography and percutaneous coronary intervention to the right coronary artery Indication Chest pain Risk Factors Hypercholesterolemia, Hypertension Procedure Narrative The patient was brought electively to the Cardiac Catheterization Laboratory and was prepped and draped in a sterile manner. The right femoral was infiltrated with 1% Lidocaine subcutaneous anesthesia. A 6fr Ultimum Sheath sheath was inserted into the Right Femoral Artery. Coronary angiography was performed using coronary diagnostic catheters. The right coronary system was accessed and visualized with a Diagnostic JR4 catheter. The left coronary system was accessed and visualized with a Diagnostic JL4 catheter. The left ventricle was accessed and visualized with a Diagnostic Angled Pig catheter. Left ventricular/Aortic Valve gradient assessed via catheter pullback. Left ventriculogram was performed in PAPPAS projection. Pre-demployment femoral angiogram was performed . Closure device was deployed with a Fr Angioseal STS 6Fr. The patient tolerated the procedure well and there were no complications associated with the procedure. There was no hematoma. Intraoperative Conscious Sedation Sedation start time: 11:32 Case end Time: 12:41 [place] [address] CARDIAC CATH REPORT Name: BHARAT CERVANTES Room: [address] IN [facility]#: [id number] Admission: 05/24/17 Attend Phys: Sharon Prajapati MD Discharge: Date of : 41 Report #: [id number] Fentanyl 75 mcg Versed 3 mg Fluoro Time: 22.7 minutes Dose: DAP 80625 cGycm2 1446 mGy Contrast Type and Amount: Omnipaque 150 ml Diagnostic Cath Left Main 0% narrowing LAD 30% mid vessel narrowing Circumflex Nondominant vessel with 80% focal stenosis in the first marginal branch of the circumflex Right Coronary Large dominant vessel with 75% tubular proximal and 90% focal mid right coronary stenosis, at the acute margin Left Ventriculography The left ventricle is normal in size with normal contractility. The left ventricular ejection fraction is estimated to be 65-70%. Left ventricular wall motion abnormalities are not present. There is no mitral insufficiency. Hemodynamics The aortic pressure is 152/59 mmHg with a mean of 93 mmHg. The left ventricular pressure is 137/0 mmHg with a mean of mmHg. The left ventricular end diastolic pressure is 9 mmHg. There was no gradient across the aortic valve upon pullback. PCI Technique Lesion Anticoagulation was achieved with Angiomax. Patient was preloaded with Angiomax IV 8.25 ml. Percutaneous coronary intervention was performed on the mid right coronary artery at the acute margin. The lesion stenosis prior to intervention was 90% with LIANE 3 flow. A 6F JR 4.0 Guide Catheter was used to engage the ostium. A IG: ProwaterFlex 180CM Interventional Guidewire was used to cross the lesion. BALLOON DILATION A Balloon catheter Trek RX 2.5 X 12 was inserted and inflated up to 8.00atm for 12seconds. Additional Inflation: 12.00atm for 11seconds. STENT DEPLOYMENT A drug-eluting stent Xience Alpine RX 2.5X12 was inserted and inflated up to 12.00atm for 11seconds. Additional Inflation: 14.00atm for 10seconds. Additional Inflation: 16.00atm for 8seconds. Final angiography reveals 0 % stenosis with LIANE [place] [address] CARDIAC CATH REPORT Name: BHARAT CERVANTES Room: [address] IN M.R.#: [id number] Admission: 05/24/17 Attend Phys: Sharon Prajapati MD Discharge: Date of : 41 Report #: [id number] PCI Technique Lesion 2 Percutaneous Coronary Intervention was performed on the proximal right coronary artery. Patient was preloaded with Angiomax IV 4 ml. Percutaneous coronary intervention was performed on the proximal right coronary artery. The lesion stenosis prior to intervention was 75% with LIANE 3 flow. A 6F JR 4.0 Guide Catheter was used to engage the ostium. A IG: ProwaterFlex 180CM Interventional Guidewire was used to cross the lesion. Balloon Dilation A Balloon catheter Trek RX 2.5 X 12 was inserted and inflated up to 10.00atm for 12seconds. Additional Inflation: 12.00atm for 12seconds. Stent Deployment A drug-eluting stent Xience Alpine RX 2.75X33 was inserted and inflated up to 16atm for 15seconds. Post Stent Deployment Balloon Dilation A Balloon catheter NC Euphora 3.0x12 was inserted and inflated up to 15atm for 10seconds. Final angiography reveals 10 % stenosis with LIANE 3 flow. BALLOON DILATION A Balloon catheter NC Euphora 2.75x12 was inserted and inflated up to 15atm for 9seconds. Additional Inflation: 16atm for 10seconds. STENT DEPLOYMENT A drug-eluting stent Xience Alpine RX 2.75X33 was inserted and inflated up to 12atm for 15seconds. Additional Inflation: 14atm for 12seconds. POST STENT DEPLOYMENT BALLOON DILATION A Balloon catheter NC Euphora 3.0x12 was inserted and inflated up to 16atm for 12seconds. Additional Inflation: 17atm for 7seconds. Conclusion #1 significant multivessel coronary artery disease characterized by the following: A 30% mid LAD narrowing, B 80% focal stenosis of the first marginal branch of the nondominant [address] [address] CARDIAC CATH REPORT Name: BHARAT CERVANTES Room: [address] IN M.R.#: [id number] Admission: 05/24/17 Attend Phys: Sharon Prajapati MD Discharge: Date of : 41 Report #: [id number] circumflex, C large dominant right coronary artery with 75% tubular proximal narrowing and 90% focal stenosis at the acute margin #2 normal left ventricular systolic function, estimated ejection fraction being 65-70%, #3 normal left-sided hemodynamics study, #4 successful percutaneous coronary intervention with deployment of sequential drug-eluting stents at the sites of 75% proximal and 90% focal mid right coronary stenosis with 10 and 0% residual narrowing following stent deployment and LIANE-3 flow to the distal vessel. Recommendations Cardiac Risk Reduction Program Medical Therapy Medications Administered Aspirin (any) Ticagrelor <ELECTRONICALLY SIGNED> By: Haroldo Luis MD, FACC 05/27/17 171 14 14Haroldo Luis MD, FACC /INF
[2017-05-27 17:53] LABS: HEMATOCRIT 33.9 % (42.0-52.0); HEMOGLOBIN 11.4 gm/dL (14.0-18.0); MCH 30.1 pg (26.0-34.0); MCHC 33.7 g/dL (28.0-37.0); MCV 89.2 fL (80.0-100.0); MPV 8.5 fl. (7.2-11.1); RBC 3.8 mil/uL (4.50-6.00); RDW-CV 14.7 % (10.5-14.5); WBC 9.9 thou/uL (4.0-11.0)
[2017-05-27 17:58] LABS: CALCIUM 8.5 mg/dL (8.5-10.1); CREATININE 1.1 mg/dL (0.6-1.3); INR 1.1; POTASSIUM 4.5 mmol/L (3.5-5.1); PROTIME 10.8 Seconds (9.20-11.50)
[2017-05-27 18:03] LABS: ALBUMIN 2.7 g/dL (3.4-5.0); TOTAL BILIRUBIN 0.3 mg/dL (<0.1-1.0); TOTAL PROTEIN 6.7 g/dL (6.4-8.2)
[2017-05-27 20:08] LABS: URINE BILIRUBIN NEGATIVE (Negative); URINE BLOOD TRACE (Negative); URINE CLARITY CLEAR; URINE COLOR YELLOW; URINE GLUCOSE-RANDOM NEGATIVE (Negative); URINE KETONES NEGATIVE (Negative); URINE LEUKOCYTES NEGATIVE (Negative); URINE NITRITE NEGATIVE (Negative); URINE PROTEIN NEGATIVE (Negative); URINE SPECIFIC GRAVITY <= 1.005 (1.005-1.030); URINE UROBILINOGEN 0.2 E.U./dl (0.2-1.0)
[2017-05-28] VITALS (22 sets, daily range): BP systolic 93–136; BP diastolic 47–83
[2017-05-28 04:37] LABS: CALCIUM 8.5 mg/dL (8.5-10.1); CREATININE 0.9 mg/dL (0.6-1.3)
[2017-05-28 04:47] LABS: POTASSIUM 3.5 mmol/L (3.5-5.1)
[2017-05-28 04:55] LABS: HEMATOCRIT 32.4 % (42.0-52.0); HEMOGLOBIN 11.1 gm/dL (14.0-18.0); MCH 30.1 pg (26.0-34.0); MCHC 34.2 g/dL (28.0-37.0); MCV 87.9 fL (80.0-100.0); MPV 8.2 fl. (7.2-11.1); RBC 3.69 mil/uL (4.50-6.00); RDW-CV 14.9 % (10.5-14.5); WBC 12.5 thou/uL (4.0-11.0)
--- NOTE | 2017-05-28 16:18 | EKG ---
[place] [address] ELECTROCARDIOGRAM REPORT Name: BHARAT CERVANTES Room: [address] ADM IN M.R.#: [id number] Admission: 05/24/17 Attend Phys: Sharon Prajapati MD Discharge: Date of : 41 Report #: [id number] THIS REPORT FOR: //name// [facility] Test Date: 2017-05-28 Test Time: 08:24:04 Pat Name: BHARAT CERVANTES Department: Room: [facility] Gender: M Optical Engineer: : 1945 Requested By: Breezy Guy Order Number: [id number] Reading MD: Haroldo Luis Measurements Intervals [place] Rate: 55 P: 71 SD: 97 QRS: 85 QRSD: 91 T: 37 QT: 422 QTc: 404 Interpretive Statements Sinus rhythm Short SD interval Borderline right axis deviation Compared to ECG 05/25/2017 07:45:04 ST (T wave) deviation no longer present Electronically Signed On 05-28-2017 16:18:04 STONEMASON SUPERVISOR by Haroldo Luis [email or web address] <ELECTRONICALLY SIGNED> By: Haroldo Luis MD, [facility] 05/28/17 1618 3 3 Haroldo Luis MD, FAC /EPI
[2017-05-29] VITALS: BP 111/61
[2017-05-29 04:00] VITALS: BP 109/50
[2017-05-29 04:05] LABS: HEMATOCRIT 31.1 % (42.0-52.0); HEMOGLOBIN 10.8 gm/dL (14.0-18.0); MCH 30.7 pg (26.0-34.0); MCHC 34.9 g/dL (28.0-37.0); MCV 87.9 fL (80.0-100.0); MPV 8.4 fl. (7.2-11.1); RBC 3.53 mil/uL (4.50-6.00); RDW-CV 14.9 % (10.5-14.5); WBC 9.9 thou/uL (4.0-11.0)
[2017-05-29 04:49] LABS: ALBUMIN 2.6 g/dL (3.4-5.0); CALCIUM 8.5 mg/dL (8.5-10.1); MAGNESIUM 1.7 mg/dL (1.8-2.4); TOTAL BILIRUBIN 0.2 mg/dL (<0.1-1.0); TOTAL PROTEIN 5.8 g/dL (6.4-8.2)
[2017-05-29] MEDS ORDERED: BRILINTA90 MG PO (08:17)
[2017-05-29] MEDS ORDERED: MINOCIN100 MG PO (08:17)
[2017-05-29] MEDS ORDERED: DUONEB 2.5-0.5 M3 ML INH (08:18)
[2017-05-29] MEDS ORDERED: SCOPOLAMINE1 EACH TRANSDERM (08:22)
[2017-05-29 08:24] VITALS: BP 129/68
[2017-05-29 09:40] VITALS: BP 117/64
[2017-05-29 10:59] VITALS: BP 117/64
--- NOTE | 2017-06-05 11:51 | CON ---
[address] [address] CONSULTATION Name: BHARAT CERVANTES Room: [address] IN M.R.#: [id number] Admission: 05/24/17 Attend Phys: Sharon Prajapati MD Discharge: 05/29/17 Date of : 41 Report #: [id number] THIS REPORT FOR: //name// CC: Jed Prajapati DATE OF SERVICE: 05/27/2017 HISTORY OF PRESENT ILLNESS: This is a 72-year-old male patient who was evaluated by me at the request of Dr. Gonzalez. The patient was discussed with him multiple times today. This patient was discussed with the nurses looking after the patient, both the shift nurses and I talked to the shift leader nurse. I talked to the radiologist on-call today. The history I get is that this patient had a stent put in today. As I understand, he did not have an CA and he had coronary artery disease. Nurses activated code stroke and the patient was seen by Dr. Gonzalez who was in the hospital. I talked to Dr. Gonzalez on the phone and it looks like that this patient has significant diplopia, facial weakness as well as weakness of the upper and lower extremities. I talked to Dr. Gonzalez and called the Emergency Room who deals with this patient quite frequently to rule out the stroke package including the exclusion criteria and get it to room 232 for nurses as well as Dr. Gonzalez. Dr. Gonzalez evaluated this patient and I talked to him on the phone and I was in [facility] at that time. Dr. Gonzalez went over with this patient about indication, potential complication and alternatives with the patient in detail and after discussing all of it with the patient in detail, the patient wanted to proceed with TPA and Dr. Gonzalez started the patient on TPA. When I saw this patient, he was still having significant amount of diplopia. He was having facial weakness and he was feeling weak in general, but more so on the left side as compared to the right side. He was not having any headache. He was receiving TPA without any complication. I went over again with the patient acutely about indication, potential complication, and alternatives and he understood it and he indicated that he has been explained all those complications and alternative already. REVIEW OF SYSTEMS: Indicate that this patient has coronary artery disease. He has a pretty significant diplopia that is something new. It was less than 3 hours' duration. He denies any prior history of stroke. It looks like he does have other issues like bladder tumor, but he says he does not have any blood from the urine. He does have a question of a lung mass. PAST MEDICAL HISTORY: Positive for recent stent put on, record indicates it is also positive for noncompliance in this patient. His history was carefully taken and his social history indicates he does not abuse alcohol. PHYSICAL EXAMINATION: Examination was carried out multiple times. The positive examination in this patient is that he has a significant [place] [address] CONSULTATION Name: BHARAT CERVANTES Room: [address] IN [facility]#: [id number] Admission: 05/24/17 Attend Phys: Sharon Prajapati MD Discharge: 05/29/17 Date of : 41 Report #: [id number] is worse when he looks towards the left and he has pretty significant downbeat nystagmus there. It is more prominent on the left eye as compared to the right eye and more prominent by looking towards the temporal side on the left side. He did have a facial palsy on the left side, which is persistent and according to the family was new. He does appear to be somewhat weak on the left side as compared to the right side, but on my last examination, which was carried out after the TPA, it looks more or less symmetrical. I discussed very similar things with this patient. I discussed with him that the symptoms I suggested for cerebrovascular accident. I discussed with him that we do not have time to confirm the diagnosis of cerebrovascular accident because if we try to do that, time to give TPA will past. So, we gave TPA with presumptive diagnosis. He understood it. I also went over his records again. It was noticed while I was redoing the exclusion criteria that he did get deep venous thrombosis prophylaxis dose for Lovenox. I carefully reviewed the literature on that and the literature on that is not very clear. Full dose of Lovenox is a contraindication for TPA, but literature on DVT prophylaxis dose is not clear. He had already received about 0.6 mL/kg of the body weight of TPA. I asked him to stop TPA and let him have only 0.6 mg per kg body weight of the TPA rather than having a full dose of 0.9 mg/kg of the body weight because lower dose has been found to be as effective as 0.9 mg/kg of the body weight. I talked to the nurses again. I repeated the examination multiple times. His strength looked symmetrical, but his facial droop was still there and he still had a pretty significant downbeat nystagmus. I talked to the radiologist and I talked to him about the stent. He wanted to confirm with other people and then called me back and said it is okay to go ahead with the MRI and that is okay with the stent. I also asked the nurses to make sure with Cardiology again that they are okay with proceeding with MRI because of the patient's stents. They indicated Dr. Guy is going to be here and they will check with him. His MRI was done. MRI does show multiple vessels abnormality, but nothing on the diffusion weighted images in this patient. Nurses did a bedside swallow and there is nothing to suggest any swallowing difficulty and since he passed bedside swallow, he can have medications, but he cannot have any blood thinner. I called the nurses and told them to make sure that he does not get any blood thinner of any kind and if his NIH scale deteriorates, he will need a repeat CT scan of the head. As mentioned above, this patient was examined by me multiple times and I discussed this patient with multiple physicians and a total of more than 70 minutes of time was spent taking care of this patient today and majority of that time was spent counseling the patient on multiple matters, especially the matter of intracerebral bleed and systemic bleed because of the special situation he was in and catastrophic complication of intracerebral bleed, which can occur and other complications of TPA. I also called [facility] stroke team and talked to them to see if they have experienced in giving T[place] [address] CONSULTATION Name: BHARAT CERVANTES Room: 002-[address] [facility] IN M.R.#: [id number] Admission: 05/24/17 Attend Phys: Sharon Prajapati MD Discharge: 05/29/17 Date of : 41 Report #: [id number] just had angiograms and stent and indicated they have done that. So far, this patient has not shown any complications from TPA and hopefully, he will continue to do well. Sometime, initial MRI can miss stroke, but so far, no clearcut abnormality on the MRI has been documented in this patient so far. <ELECTRONICALLY SIGNED> By: Jame Denise MD 06/05/17 1151 2204 [id number] Denise MD /nt
== END 2017-05-29 11:51 | disposition home health service (06) | DRG 246 ==
LOC: M.ERS 09:18 → M.2W 11:34 → M.TBA-ER 11:34 → M.2W 13:29 → M.ICU 05-27 17:42
PROVIDERS: Emergency Medicine Emergency Medical Services; Internal Medicine; Internal Medicine Cardiovascular Disease; ADMIT Internal Medicine
DX: I25.119 Atherosclerotic heart disease of native coronary artery with unspecified angina pectoris (principal); I63.9 Cerebral infarction, unspecified; E44.1 Mild protein-calorie malnutrition; C34.90 Malignant neoplasm of unspecified part of unspecified bronchus or lung; Z68.1 Body mass index [BMI] 19.9 or less, adult; J44.9 Chronic obstructive pulmonary disease, unspecified; I27.20 Pulmonary hypertension, unspecified; I48.0 Paroxysmal atrial fibrillation; H51.20 Internuclear ophthalmoplegia, unspecified eye; C67.9 Malignant neoplasm of bladder, unspecified; Z79.899 Other long term (current) drug therapy; Z79.82 Long term (current) use of aspirin; Z88.6 Allergy status to analgesic agent; Z88.8 Allergy status to other drugs, medicaments and biological substances; Z87.891 Personal history of nicotine dependence; Z91.14 Patient's other noncompliance with medication regimen

== ENCOUNTER → 2017-07-01 | Outpatient (CLI) | payer OTHER ==
[~2017-07-01] MED LIST changes: +BRILINTA90 MG PO; +ELIQUIS5 MG PO; +IMDUR; +IMDUR PO; +MINOCIN100 MG PO; +SCOPOLAMINE1 EACH TRANSDERM
== END ==
LOC: M.CT 10:40
DX: J98.11 Atelectasis (principal); R91.8 Other nonspecific abnormal finding of lung field

== ENCOUNTER 2017-07-28 09:14 | Observation (INO) | payer OTHER ==
[~2017-07-28] VITALS: Ht 180.3 cm; Wt 60.8 kg
[2017-07-28] VITALS (15 sets, daily range): BP systolic 105–139; BP diastolic 60–101
[~2017-07-28 09:14] MED LIST changes: -ELIQUIS5 MG PO; -IMDUR; -IMDUR PO
[2017-07-28 09:39] LABS: HEMATOCRIT 36.2 % (42.0-52.0); HEMOGLOBIN 11.9 gm/dL (14.0-18.0); MCH 29.6 pg (26.0-34.0); MCHC 32.9 g/dL (28.0-37.0); MPV 7.7 fl. (7.2-11.1); RBC 4.02 mil/uL (4.50-6.00); RDW-CV 17.1 % (10.5-14.5); WBC 9.1 thou/uL (4.0-11.0)
[2017-07-28 09:47] LABS: ANION GAP 11 mmol/L (7-16); BUN 10 mg/dL (7-18); CALCIUM 8.8 mg/dL (8.5-10.1); CHLORIDE 105 mmol/L (98-107); CO2 27 mmol/L (21-32); CREATININE 1.1 mg/dL (0.6-1.3); GLUCOSE 97 mg/dL (70-99); POTASSIUM 3.7 mmol/L (3.5-5.1); SODIUM 143 mmol/L (136-145)
[2017-07-28 09:48] LABS: PROTIME 9.7 Seconds (9.20-11.50)
[2017-07-28 09:52] LABS: ALBUMIN 3.7 g/dL (3.4-5.0); ALKALINE PHOSPHATASE 90 U/L (46-116); CHOLESTEROL 192 mg/dL (<200); HDL CHOLESTEROL 69 mg/dL (>40); LDL CHOLESTEROL 106 mg/dL (<100); SERUM ASSESSMENT Clear; SGOT 34 U/L (15-37); SGPT 38 U/L (30-65); TC:HDL 2.8 Ratio (Not establshd); TOTAL BILIRUBIN 0.3 mg/dL (<0.1-1.0); TOTAL PROTEIN 7.4 g/dL (6.4-8.2); TRIGLYCERIDE 85 mg/dL (<150); VLDL 17 mg/dL (<40)
[2017-07-28] MEDS ORDERED: ELIQUIS5 MG PO (10:27)
[2017-07-28 10:43] LABS: APTT 29.2 Seconds (25.0-31.3)
--- NOTE | 2017-07-28 17:58 | EKG ---
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: [facility] : 1945 Requested By: Haroldo Luis Order Number: [id number] Anjana MD: Breezy Guy Measurements Intervals [place] Rate: 78 P: 84 SD: 121 QRS: 90 QRSD: 95 T: -44 QT: 355 QTc: 405 Interpretive Statements Sinus rhythm Borderline right axis deviation Borderline repolarization abnormality Compared to ECG 05/28/2017 08:24:04 Short SD interval no longer present Electronically Signed On 07-28-2017 17:58:25 CDT by Breezy Guy [email or web address] <ELECTRONICALLY SIGNED> By: Breezy Guy MD, [facility] 07/28/17 6748 0935 0935 Breezy Guy MD, FAC /EPI
--- NOTE | 2017-07-28 17:59 | EKG ---
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: [facility] : 1945 Requested By: Haroldo Luis Order Number: [id number] Anjana MD: Breezy Guy Measurements Intervals [place] Rate: 71 P: 82 NV: 128 QRS: 88 QRSD: 103 T: -19 QT: 356 QTc: 387 Interpretive Statements Sinus rhythm Borderline right axis deviation Borderline repolarization abnormality Compared to ECG 05/28/2017 08:24:04 Short NV interval no longer present Electronically Signed On 07-28-2017 17:59:21 CDT by Breezy Guy [email or web address] <ELECTRONICALLY SIGNED> By: Breezy Guy MD, [facility] 07/28/17 1759 1222 1222 Breezy Guy MD, FAC /EPI
[2017-07-29] VITALS: BP 140/59
[2017-07-29 04:00] VITALS: BP 116/68
[2017-07-29 05:30] LABS: HEMOGLOBIN 11.4 gm/dL (14.0-18.0); MCH 30.1 pg (26.0-34.0); MCHC 33.6 g/dL (28.0-37.0); MCV 89.6 fL (80.0-100.0); MPV 8.2 fl. (7.2-11.1); RBC 3.79 mil/uL (4.50-6.00); RDW-CV 16.8 % (10.5-14.5); WBC 10.5 thou/uL (4.0-11.0)
[2017-07-29 05:49] LABS: ALBUMIN 3.2 g/dL (3.4-5.0); CALCIUM 8.7 mg/dL (8.5-10.1); CREATININE 0.9 mg/dL (0.6-1.3); POTASSIUM 4.5 mmol/L (3.5-5.1); TOTAL BILIRUBIN 0.3 mg/dL (<0.1-1.0); TOTAL PROTEIN 5.9 g/dL (6.4-8.2)
[2017-07-29 08:19] VITALS: BP 110/77
[2017-07-29 09:05] VITALS: BP 139/101
[2017-07-29] MEDS ORDERED: IMDUR PO (09:52)
[2017-07-29] MEDS ORDERED: IMDUR (09:52)
--- NOTE | 2017-07-29 14:05 | EKG ---
[place] [address] ELECTROCARDIOGRAM REPORT Name: BHARAT CERVANTES Room: [address] M.R.#: [id number] Admission: 07/28/17 Attend Phys: Haroldo Luis MD, Discharge: 07/29/17 Date of : 41 Report #: [id number] THIS REPORT FOR: //name// [facility] Test Date: 2017-07-29 Test Time: 08:48:03 Pat Name: BHARAT CERVANTES Department: Room: [facility] Gender: M [employer] Instructor: : 1945 Requested By: Haroldo Luis Order Number: [id number] Reading MD: Breezy Guy Measurements Intervals Lane Rate: 66 P: 78 DE: 123 QRS: 87 QRSD: 94 T: 36 QT: 391 QTc: 410 Interpretive Statements Sinus rhythm Borderline right axis deviation Minimal ST depression, diffuse leads Compared to ECG 07/28/2017 12:22:35 ST (T wave) deviation now present Electronically Signed On 07-29-2017 14:04:53 CDT by Breezy Guy [email or web address] <ELECTRONICALLY SIGNED> By: Breezy Guy MD, FACC 07/29/17 1404 0848 0848 Breezy Guy MD, [facility] /EPI
--- NOTE | 2017-07-30 16:34 | D ---
[address] [address] DISCHARGE SUMMARY Name: BHARAT CERVANTES Room: [address] Beny MTima#: [id number] Admission: 07/28/17 Attend Phys: Haroldo Luis MD, Discharge: 07/29/17 Date of : 43 Report #: [id number] THIS REPORT FOR: //name// CC: Jed Luis DATE OF SERVICE: 07/29/2017 FINAL DISCHARGE DIAGNOSES: 1. Unstable angina. 2. Status post prior stenting of the right coronary artery with stenting of the first marginal branch of the circumflex on 07/28/2017. 3. Paroxysmal atrial fibrillation. 4. Hyperlipoproteinemia. 5. Left subclavian artery stenosis. PROCEDURES: On 07/28/2017 -- left heart catheterization, selective coronary arteriography and percutaneous coronary intervention with deployment of drug-eluting stent at the site of 90% stenosis in the first marginal branch of the circumflex. HISTORY: The patient is a very pleasant 72-year-old male with coronary artery disease who presented with unstable angina. He underwent stenting of the right coronary artery several weeks ago. He has experienced recurrent chest discomfort and the prior angiogram did reveal significant first marginal stenosis. He has underlying hyperlipidemia and has a history of a small periprocedural ischemic neurologic event. In this setting, with recurrent angina I recommended recatheterization, which was undertaken on 07/28/2017. That revealed widely patent right coronary stents with 90% first marginal stenosis and modest mid LAD narrowing. I deployed one 2.25 x 12 mm Xience Alpine drug-eluting stent in the first marginal branch of the circumflex with 10% residual narrowing following stent deployment and LIANE 3 flow of the distal vessel. The patient did well post-procedurally and there was no chest discomfort. There was good hemostasis at the right femoral site of catheterization. LABORATORY DATA: On 07/29/2017 revealed sodium 143, potassium 4.5, BUN 8, creatinine 0.9 and glucose 106. Hemoglobin of 11.4, white blood cell count 10,500 with 303,000 platelets. He ambulated in the hallways without difficulty. He was discharged to home on the following medications: [place] [address] DISCHARGE SUMMARY Name: BHARAT CERVANTES Room: [address] [place]#: [id number] Admission: 07/28/17 Attend Phys: Haroldo Luis MD, Discharge: 07/29/17 Date of : 43 Report #: [id number] at 5 mg b.i.d. on 07/31/2017, atorvastatin 40 mg at bedtime, digoxin 0.25 mg daily, diltiazem extended release 180 mg daily, minocycline 100 mg b.i.d., ticagrelor, Brilinta 90 mg b.i.d., Imdur 60 mg daily, Combivent 1 puff p.r.n., tramadol 50 mg every 6 hours as needed. The patient is scheduled to return in followup to see our nurse practitioner, Penelope Cali on 08/06/2017 at 09:[address] Guy on 09/01/2017 at 09:00. Thus, the patient is discharged to home in stable condition with followup as iterated above on the above described medicines. <ELECTRONICALLY SIGNED> By: Haroldo Luis MD, [facility] 07/30/17 1634 1235 1259Joradha Luis MD, FAC /nt
--- NOTE | 2017-08-03 11:44 | CARD ---
[address] [address] CARDIAC CATH REPORT Name: BONILLALavonBHARAT DUGAN Room: [address] [place] Levin#: [id number] Admission: 07/28/17 Attend Phys: Haroldo Luis MD, Discharge: 07/29/17 Date of : 43 Report #: [id number] THIS REPORT FOR: //name// APPROVED REPORT Study performed: 07/28/2017 09:39:52 Patient Details Patient Status: Out-Patient Room #: The patient is a 72 year-old male Event Personnel Haroldo Luis Test Engine Mechanic, Vianey Conley RN RN, Enrique Aldrich Monitor, Nolvia Gomez RTR Scrub, Mary Kate Strickland Monitor Procedures Performed Art Access - R femoral artery* , Left Heart Catheterization, Selective Right and Left Coronary Angiography; left heart catheterization, PTCA with Stenting Indication Unstable angina Risk Factors Hypercholesterolemia, Hypertension Previous Procedures/Diagnoses Previous PCI Admission/Lab Medications/Medications given during procedure Aspirin, Platelet Aff. Inhib., Angiomax bolus and infusion Procedure Narrative The patient was brought electively to the Cardiac Catheterization Laboratory and was prepped and draped in a sterile manner. The right femoral was infiltrated with 1% Lidocaine subcutaneous anesthesia. A [place] 6 FR sheath was inserted into the right femoral artery. Coronary angiography was performed using coronary diagnostic catheters. The right coronary system was accessed and visualized with a Diagnostic catheter. The left coronary system was accessed and visualized with a Diagnostic catheter. The left ventricle was accessed and visualized with a Diagnostic catheter. Left ventricular/Aortic Valve gradient assessed via catheter pullback. Pre-demployment femoral angiogram was performed . [place] [address] CARDIAC CATH REPORT Name: BHARAT CERVANTES Room: [address] M.Jhony#: [id number] Admission: 07/28/17 Attend Phys: Haroldo Luis MD, Discharge: 07/29/17 Date of : 43 Report #: [id number] deployed with a 6 Fr Angioseal. The patient tolerated the procedure well and there were no complications associated with the procedure. There was no hematoma. Intraoperative Conscious Sedation Sedation start time: 10:50 Case end Time: 11:26 Fentanyl 50 mcg Versed 2 mg Fluoro Time: 10.6 minutes Dose: DAP 53912 cGycm2 535.79 mGy Contrast Type and Amount: Visipaque 210 ml Coronary Angiography The patient's coronary anatomy is right dominant. Diagnostic Cath Left Main 0% narrowing LAD Widely patent proximal LAD stent with 0% narrowing Circumflex 30% proximal narrowing with 90% stenosis of the proximal portion of the first marginal branch Right Coronary Dominant vessel with 30% proximal mid and distal narrowings Left Ventriculography Left Ventriculography was not performed. Hemodynamics The aortic pressure is 142/66 mmHg with a mean of mmHg. The left ventricular pressure is 146/-1 mmHg with a mean of mmHg. The left ventricular end diastolic pressure is 4 mmHg. There was no gradient across the aortic valve upon pullback. PCI Technique Lesion Anticoagulation was achieved with Angiomax. Percutaneous coronary intervention was performed on the first obtuse marginal branch segment. The lesion stenosis prior to intervention was 90% with LIANE 3 flow. A 6FR XB 3.0 100CM Guide Catheter was used to engage the LCA ostium. A IG: ProwaterFlex 180CM Interventional Guidewire was used to cross the lesion. BALLOON DILATION A Balloon catheter NC Trek RX 2.0 X 8 was inserted and inflated up to 10.00atm for 21seconds. Additional Inflation: 12.00atm for 20seconds. [place] [address] CARDIAC CATH REPORT Name: BHARAT CERVANTES Room: [address] [place] Levin#: [id number] Admission: 07/28/17 Attend Phys: Haroldo Luis MD, Discharge: 07/29/17 Date of : 41 Report #: [id number] STENT DEPLOYMENT A drug-eluting stent Xience Alpine RX 2.25X12 was inserted and inflated up to 8.00atm for 16seconds. Additional Inflation: 10.00atm for 11seconds. POST STENT DEPLOYMENT BALLOON DILATION A Balloon catheter NC Trek RX 2.25 X 8 was inserted and inflated up to 14.00atm for 12seconds. Additional Inflation: 15.00atm for 11seconds. Additional Inflation: 16.00atm for 13seconds. 17 JENNIFFER x 15 seconds Final angiography reveals 0 % stenosis with LIANE 3 flow. Conclusion #1 significant coronary artery disease characterized by the following: A widely patent proximal LAD stent, B 30% proximal circumflex narrowing with 90% calcified stenosis of the proximal portion of the first marginal branch, C dominant right coronary artery with 30% proximal mid and distal narrowings #2 normal left-sided hemodynamic study #3 successful percutaneous coronary intervention with deployment of a drug-eluting stent at site of 90% calcified first marginal stenosis with 0% residual narrowing following stent deployment and LIANE-3 flow the distal vessel. Recommendations Cardiac Risk Reduction Program Aggressive Medical Therapy Medications Administered Aspirin (any) Ticagrelor Angiomax [place] [address] CARDIAC CATH REPORT Name: BHARAT CERVANTES Room: [address] [place]#: [id number] Admission: 07/28/17 Attend Phys: Haroldo Luis MD, Discharge: 07/29/17 Date of : 41 Report #: [id number] Diagnostic Cath Approved by: Haroldo Luis MD Date/Time: 08/03/17 1142 hrs. <ELECTRONICALLY SIGNED> By: Haroldo Luis MD, [facility] 08/03/17 1143 1143 1143Haroldo Luis MD, FACC /INF
== END 2017-07-29 11:20 | disposition home or self-care (01) ==
LOC: M.CL 09:14 → M.2W 11:45 → M.TBA-CV 11:45 → M.2W 11:45
PROVIDERS: ADMIT Internal Medicine
DX: I25.110 Atherosclerotic heart disease of native coronary artery with unstable angina pectoris (principal); I48.0 Paroxysmal atrial fibrillation; I77.1 Stricture of artery; J43.1 Panlobular emphysema; E78.2 Mixed hyperlipidemia; Z87.891 Personal history of nicotine dependence

== ENCOUNTER → 2017-09-04 | Outpatient (CLI) | payer OTHER ==
[~2017-09-04] MED LIST changes: +ELIQUIS5 MG PO; +IMDUR; +IMDUR PO
== END ==
LOC: M.LAB 08:57
DX: I48.91 Unspecified atrial fibrillation (principal)

== ENCOUNTER → 2017-11-17 | Outpatient (CLI) | payer OTHER ==
[2017-11-17 15:10] LABS: ABSOLUTE BASOPHILS 0.1 thou/uL (0.0-0.2); ABSOLUTE EOSINOPHILS 0.2 thou/uL (0.0-0.7); ABSOLUTE LYMPHOCYTES 1.5 thou/uL (0.8-5.3); ABSOLUTE MONOCYTES 0.8 thou/uL (0.0-1.2); ABSOLUTE NEUTROPHILS 5.3 thou/uL (1.6-8.1); BASOPHILS 0.8 %; EOSINOPHILS 2.1 %; HEMATOCRIT 36.5 % (42.0-52.0); HEMOGLOBIN 11.9 gm/dL (14.0-18.0); LYMPHOCYTES 19.2 %; MCH 27.4 pg (26.0-34.0); MCHC 32.5 g/dL (28.0-37.0); MCV 84.4 fL (80.0-100.0); MONOCYTES 10.7 %; MPV 8.2 fl. (7.2-11.1); NUCLEATED RBCS 0 /100WBC; PLATELET COUNT* 271 thou/uL (150-400); POLYS 67.2 %; RBC 4.33 mil/uL (4.50-6.00); RDW-CV 18.3 % (10.5-14.5); WBC 7.9 thou/uL (4.0-11.0)
[2017-11-17 15:14] LABS: CALCIUM 8.7 mg/dL (8.5-10.1); CREATININE 1.2 mg/dL (0.6-1.3); POTASSIUM 4.1 mmol/L (3.5-5.1)
[2017-11-17 15:19] LABS: ALBUMIN 3.7 g/dL (3.4-5.0); TOTAL BILIRUBIN 0.8 mg/dL (<0.1-1.0); TOTAL PROTEIN 7.7 g/dL (6.4-8.2)
[2017-11-17 16:31] LABS: ESR (SEDRATE) 47 mm/hr (0-20)
== END ==
LOC: M.CT 14:39
PROVIDERS: Internal Medicine
DX: I25.10 Atherosclerotic heart disease of native coronary artery without angina pectoris (principal); N28.1 Cyst of kidney, acquired; J43.2 Centrilobular emphysema; K57.32 Diverticulitis of large intestine without perforation or abscess without bleeding; C34.90 Malignant neoplasm of unspecified part of unspecified bronchus or lung

== ENCOUNTER → 2017-12-18 | Outpatient (CLI) | payer OTHER ==
--- NOTE | 2017-12-18 16:56 | CARDNUC ---
[place] [address] CARDIAC NUCLEAR IMAGING REPORT Name: BHARAT CERVANTES Room: [facility]#: [id number] Admission: 12/18/17 Attend Phys: Breezy Guy, Discharge: Date of : 41 Date of Service: 12/18/17 1655 Report #: [id number] THIS REPORT FOR: //name// APPROVED REPORT Study performed: 12/18/2017 08:00:00 Indication: Chest pain, Dyspnea Patient Location: Out-Patient Stress Tech: Barbara Kirkland Stress Nurse: Negin Reed RN Ht: 5 ft 11 in Wt: 136 lbs BSA: 1.79 m2 BMI: 18.96 Medical History Medical History: CAD s/p stent, CVD, HTN, Hyperlipidemia, Former Smoker Medications: BRILINTA, CARDIZEM, DIGOXIN, LIPITOR, ELIQUIS Allergies: FLOMAX, VICODIN Cardiac Risk Factors: Age, Hyperlipidemia, HTN, Past Smoker, SOB Previous Cardiac Procedures: PCI Pretest Chest Pain Characteristics: No chest pain Exercise History: Indeterminate Resting Data Rest SPECT myocardial perfusion imaging was performed in supine position 30 minutes following the intravenous injection of 10.9 mCi of Tc-99m Sestamibi. Time of rest injection: 08:10 The images were gated to evaluate regional wall motion and calculate left ventricular ejection fraction. Administration Route: IV Administration Site: Left AC Pharmacologic Stress Pharmacologic stress test was performed by injecting Regadenoson 0.4 mg IV push over 10-15 seconds immediately followed by the intravenous injection of 35.1 mCi of Tc-99m Sestamibi. Time of stress injection: 09:45 Administration Route: IV Administration Site: Left AC Heart Rate at time of stress injection: 90 bpm. Gated Stress SPECT was performed 40 [place] [address] CARDIAC NUCLEAR IMAGING REPORT Name: BHARAT CERVANTES [id number] Admission: 12/18/17 Attend Phys: Breezy Guy, Discharge: Date of : 41 Date of Service: 12/18/17 1655 Report #: [id number] injection. The images were gated to evaluate regional wall motion and calculate left ventricular ejection fraction. Prone imaging was performed. Stress Test Details Stress Test: Pharmacologic stress testing performed using 0.4 mg of regadenoson per 5 mL given IV over 10 seconds. Reason for pharmacologic stress test: physical limitation. HR Max Heart Rate (APMHR): 146 bpm Resting HR: 53 bpm Target HR (85% APMHR): 124 bpm Max HR Achieved: 90 bpm % of APMHR: 61 Recovery HR: 71 bpm HR response to stress: Normal HR response to stress BP Resting BP: 134/67 mmHg Recovery BP: 173/69 mmHg BP response to stress: Normal blood pressure response to stress. ECG Resting ECG: Sinus Rhythm Stress ECG: Sinus Rhythm, nonspecific ST-T abnormalities ST Change: None Recovery ECG: Sinus Rhythm Clinical Reason for Termination: Completed protocol Stress Symptoms: Dyspnea Exercise duration: 0 min 0 sec Exercise capacity: 1.00 METs Nurse Comments MILD SOA, NO COMPLAINTS, TEST WELL TOLERATED. Stress ECG Conclusion negative ecg portion Study Quality Study: Fair Artifact: Mild Increased GI uptake Lung Uptake: [place] [address] CARDIAC NUCLEAR IMAGING REPORT Name: BHARAT CERVANTES Room: [facility]#: [id number] Admission: 12/18/17 Attend Phys: Breezy Guy, Discharge: Date of : 41 Date of Service: 12/18/17 1655 Report #: [id number] Study Data At rest, the left ventricular ejection fraction was 75%.. Post stress, the left ventricular ejection was 75%.. SSS: 0 SRS: 0 SDS: 0 TID = 0.97. Perfusion Review of SPECT images reveals a patchy, inhomongenous uptake of tracer in all segments, but no defined reversible defects. Prone images show some improvement. Images were reviewed using [employer]. Wall Motion normal in all segments Nuclear Conclusion ECG Findings: negative for ischemia Clinical Findings: negative for ischemia Nuclear Findings: negative for ischemia Exercise Capacity: not assessed Left Ventricular Function: normal Risk Study: low Negative perfusion nuclear stress test for ischemia or infarct. <Conclusion> negative ecg portion <ELECTRONICALLY SIGNED> By: Ron Arrington MD, FACC 12/18/171654 54 54 Ron Arrington MD, FACC /INF
== END ==
LOC: M.NUC 07:55
DX: I25.119 Atherosclerotic heart disease of native coronary artery with unspecified angina pectoris (principal); I10 Essential (primary) hypertension; E78.5 Hyperlipidemia, unspecified; J44.9 Chronic obstructive pulmonary disease, unspecified; Z95.5 Presence of coronary angioplasty implant and graft; Z87.891 Personal history of nicotine dependence

== ENCOUNTER 2018-05-11 14:07 | Inpatient (IN) | payer OTHER ==
[~2018-05-11] VITALS: Ht 162.6 cm; Wt 66.2 kg
--- NOTE | ~2018-05-11 | PROC ---
[address] [address] PROCEDURE REPORT Name: BHARAT CERVANTES Room: [address] IN M.R.#: [id number] Admission: 05/11/18 Attend Phys: Gabriel Anne MD Discharge: 05/18/18 Date of : 41 Report #: [id number] THIS REPORT FOR: //name// For GI report, Please see the Provation report in Perceptive 7 content. By: [id number] Records Staff KAMINI /TANJA
--- NOTE | ~2018-05-11 | PROC ---
[address] [address] PROCEDURE REPORT Name: BHARAT CERVANTES Room: [address] IN M.R.#: [id number] Admission: 05/11/18 Attend Phys: Gabriel Anne MD Discharge: 05/18/18 Date of : 41 Report #: [id number] THIS REPORT FOR: //name// For GI report, please see the Provation report in Perceptive 7 content. By: [id number] Records Staff KAMINI /TANJA
--- NOTE | ~2018-05-11 | CON ---
[address] [address] CONSULTATION Name: BHARAT CERVANTES Room: [address] IN M.R.#: [id number] Admission: 05/11/18 Attend Phys: Gabriel Anne MD Discharge: Date of : 41 Report #: [id number] THIS REPORT FOR: //name// CC: Gabriel Guy DATE OF SERVICE: 05/12/2018 HISTORY OF PRESENT ILLNESS: This is a pleasant 73-year-old gentleman with past medical history significant for COPD, renal cell cancer, status post partial nephrectomy, who is presenting for evaluation of melena and hematochezia. The patient reports over the last several days, he began initially noticing black colored stool. This was followed by several bouts of bright red blood per rectum. The patient denies any significant abdominal pain, nausea, vomiting, diarrhea. He denies taking any NSAIDs. The patient has never had an EGD or colonoscopy in the past. PAST MEDICAL HISTORY: Significant for lung cancer, COPD, atrial fibrillation. PAST SURGICAL HISTORY: Significant for renal cell cancer, status post partial left nephrectomy. 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 The patient reports this had to be reversed with the help of surgical resection. FAMILY HISTORY: The patient denies any family history of lung cancer. SOCIAL HISTORY: The patient denies smoking, alcohol or recreational drug use. REVIEW OF SYSTEMS: A comprehensive 10-point review of systems is negative except for what is mentioned in the HPI. PHYSICAL EXAMINATION: VITAL SIGNS: Temperature 36.8, pulse rate 84, respirations 17, blood pressure 113/77. GENERAL: The patient is alert, awake, oriented times 3. HEENT: Pupils are equal, round, reactive to light and accommodation. Mucous membranes are moist. NECK: There is no congestion. LUNGS: Clear to auscultation bilaterally. CARDIOVASCULAR: Rate and rhythm regular. S1, S2 present. ABDOMEN: Soft. There is no distention, guarding or rigidity. EXTREMITIES: Warm, well perfused. There is no edema. LABORATORY DATA: Hemoglobin 10.4, hematocrit 30.4, WBC count 8.1 and platelet count 237. Sodium 143, potassium 4.5, chloride 108, bicarbonate 25, BUN 12, [place] [address] CONSULTATION Name: BHARAT CERVANTES Room: [address] IN [facility].#: [id number] Admission: 05/11/18 Attend Phys: Gabriel Anne MD Discharge: Date of : 41 Report #: [id number] creatinine 1.2. IMAGING DATA: CT angio of abdomen and pelvis demonstrates patent celiac artery and inferior mesenteric arteries. artery contains a stent without evidence of residual stenosis. No evidence of active bleeding noted on the CT angiogram. Surgical anastomosis in the distal transverse colon and descending colon present. ASSESSMENT AND PLAN: Pleasant 73-year-old gentleman, presenting with melena and hematochezia. The patient has never had an EGD or colonoscopy in the past. We need to do both. Place the patient n.p.o. past midnight. Prep him with one gallon of GoLYTELY and we will plan for the procedures tomorrow. Further recommendations will be based on the results of these procedures. The patient was seen and examined on 05/12/2018 and this note reflects that date of service. By: 1811 0111Alek Rhoades MD /jesse
[2018-05-11 15:39] LABS: ABSOLUTE BASOPHILS 0.1 thou/uL (0.0-0.2); ABSOLUTE EOSINOPHILS 0.1 thou/uL (0.0-0.7); ABSOLUTE LYMPHOCYTES 1.5 thou/uL (0.8-5.3); ABSOLUTE MONOCYTES 0.5 thou/uL (0.0-1.2); ABSOLUTE NEUTROPHILS 5.7 thou/uL (1.6-8.1); BASOPHILS 1.2 %; EOSINOPHILS 1.5 %; HEMATOCRIT 34.9 % (42.0-52.0); HEMOGLOBIN 11.6 gm/dL (14.0-18.0); LYMPHOCYTES 19.1 %; MCHC 33.2 g/dL (28.0-37.0); MCV 90.4 fL (80.0-100.0); MONOCYTES 6.2 %; MPV 7.9 fl. (7.2-11.1); NUCLEATED RBCS 0 /100WBC; PLATELET COUNT* 282 thou/uL (150-400); RBC 3.85 mil/uL (4.50-6.00); RDW-CV 15.8 % (10.5-14.5); WBC 7.9 thou/uL (4.0-11.0)
[2018-05-11 15:46] LABS: PROTIME 10.3 Seconds (9.20-11.50)
[2018-05-11 15:51] LABS: ALBUMIN 3.8 g/dL (3.4-5.0); CREATININE 1.3 mg/dL (0.6-1.3); POTASSIUM 4.2 mmol/L (3.5-5.1); TOTAL BILIRUBIN 0.4 mg/dL (<0.1-1.0); TOTAL PROTEIN 7.2 g/dL (6.4-8.2)
[2018-05-11 20:00] VITALS: BP 101/63
[2018-05-12 04:54] LABS: CALCIUM 8.2 mg/dL (8.5-10.1); CREATININE 1.2 mg/dL (0.6-1.3); POTASSIUM 4.5 mmol/L (3.5-5.1)
[2018-05-12 05:07] LABS: ABSOLUTE BASOPHILS 0.1 thou/uL (0.0-0.2); ABSOLUTE EOSINOPHILS 0.2 thou/uL (0.0-0.7); ABSOLUTE LYMPHOCYTES 1.5 thou/uL (0.8-5.3); ABSOLUTE MONOCYTES 0.7 thou/uL (0.0-1.2); ABSOLUTE NEUTROPHILS 4.6 thou/uL (1.6-8.1); EOSINOPHILS 2.4 %; HEMATOCRIT 31.5 % (42.0-52.0); HEMOGLOBIN 10.5 gm/dL (14.0-18.0); LYMPHOCYTES 21.2 %; MCH 30.2 pg (26.0-34.0); MCHC 33.4 g/dL (28.0-37.0); MCV 90.5 fL (80.0-100.0); MONOCYTES 9.5 %; NUCLEATED RBCS 0 /100WBC; POLYS 65.9 %; RBC 3.48 mil/uL (4.50-6.00); RDW-CV 15.3 % (10.5-14.5)
[2018-05-12 05:09] LABS: PLATELET COUNT* 207 thou/uL (150-400)
[2018-05-12 08:05] VITALS: BP 83/45
[2018-05-12 12:34] LABS: HEMATOCRIT 31.8 % (42.0-52.0); HEMOGLOBIN 10.7 gm/dL (14.0-18.0); MCH 30.5 pg (26.0-34.0); MCHC 33.6 g/dL (28.0-37.0); MCV 90.8 fL (80.0-100.0); MPV 7.8 fl. (7.2-11.1); RBC 3.5 mil/uL (4.50-6.00); RDW-CV 15.4 % (10.5-14.5); WBC 6.5 thou/uL (4.0-11.0)
[2018-05-12 16:00] VITALS: BP 96/52
--- NOTE | 2018-05-12 16:21 | EKG ---
[place] [address] ELECTROCARDIOGRAM REPORT Name: BHARAT CERVANTES Room: [address] ADM IN M.R.#: [id number] Admission: 05/11/18 Attend Phys: Gabriel Anne MD Discharge: Date of : 41 Report #: [id number] THIS REPORT FOR: //name// [facility] Test Date: 2018-05-12 Test Time: 14:30:30 Pat Name: BHARAT CERVANTES Department: Room: [address] Gender: M Chief Administrative Officer: : 1945 Requested By: Alek Rhoades Order Number: [id number] Anjana MD: Breezy Guy Measurements Intervals [place] Rate: 68 P: 81 [place]: 121 QRS: 85 QRSD: 96 T: 56 QT: 395 QTc: 421 Interpretive Statements Sinus rhythm Borderline right axis deviation Compared to ECG 07/29/2017 08:48:03 ST (T wave) deviation no longer present Electronically Signed On 05-12-2018 16:21:45 PRINTER FLOOR COVERING ASSISTANT by Breezy Guy [email or web address] <ELECTRONICALLY SIGNED> By: Breezy Guy MD, FACC 05/12/18 1621 1430 1430 Breezy Guy MD, [facility] /EPI
--- NOTE | 2018-05-12 16:55 | CON ---
[address] [address] CONSULTATION Name: BHARAT CERVANTES Room: [facility] IN M.R.#: [id number] Admission: 05/11/18 Attend Phys: Gabriel Anne MD Discharge: Date of : 41 Report #: [id number] THIS REPORT FOR: //name// CC: Gabriel Guy DATE OF SERVICE: 05/11/2018 CARDIOLOGY CONSULTATION HISTORY OF PRESENT ILLNESS: The patient is a 73-year-old white male who I was asked to see in the hospital today after he had a bloody stool. The patient has had multiple hospitalizations here at [facility]. I actually saw him in 03/2017 when he complained of chest pain. His pain was felt to be atypical for angina. He then presented here at [facility] 2 weeks ago with atrial fibrillation. He was seen by my partner, Dr. Guy. He was placed on diltiazem and digoxin and anticoagulation with Eliquis. He had a repeat cardiac catheterization in 05/2017, which was now year ago by Dr. Luis. The results showed 80% narrowing in the circumflex, 90% narrowing of the right coronary artery, ejection fraction 75%. He was given Angiomax and then had drug-eluting stent placed in the right coronary artery. He also had a drug-eluting stent placed in the circumflex artery. He actually just returned to see Dr. Guy 2 weeks ago. He was doing well at that time. He was instructed to stop his Brilinta since it has been a year. As the patient notes for several months, he has been having intermittent blood in the stool. He had a bloody stool yesterday. He came in to the Emergency Room and he was admitted. He denies any vomiting or abdominal pain. He has had both black stools and bright red blood per rectum. He denies any significant chest pain. He does have occasional shoulder pain. He does get short of breath when he exerts himself. He has had no palpitations or syncope. 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 He has had elbow surgery. He had a previous stroke. He has a history of hyperlipidemia. MEDICATIONS: He has been taking Eliquis, Lipitor, digoxin, diltiazem, Combivent inhaler, isosorbide, Singulair. He is still taken the Brilinta. ALLERGIES: HE HAS A PREVIOUS INTOLERANCE TO FLOMAX. FAMILY HISTORY: Negative for heart disease. SOCIAL HISTORY: He is , he lives with his , live in [place], [place], I actually put a pacemaker in his . He quit [place] [address] [address] CONSULTATION Name: BHARAT CERVANTES Room: [address] IN .R.#: [id number] Admission: 05/11/18 Attend Phys: Gabriel Anne MD Discharge: Date of : 41 Report #: [id number] Rarely drinks alcohol. REVIEW OF SYSTEMS: He has had previous stroke. He has COPD. He has had a peptic ulcer. He had a tumor removed from his kidney in the past. No chronic skin condition. No psychiatric illness. PHYSICAL EXAMINATION: GENERAL: Revealed an elderly male, lying in bed, he appeared in no distress. VITAL SIGNS: Blood pressure 120/70, pulse 80. HEENT: He is anicteric. Conjunctivae pink. Mucous members moist. NECK: Veins do not appear distended. No carotid bruits. CHEST: Clear to auscultation. CARDIOVASCULAR: Regular rate and rhythm. ABDOMEN: Soft. EXTREMITIES: He has had no edema. Dorsalis pedis pulse 2+ bilaterally. SKIN: Warm, dry. NEUROLOGIC: Nonfocal. There does not appear to be an ECG in the chart. LABORATORY DATA: His workup, he had lab work today, sodium 142, creatinine 1.3. His white blood cell count 7.9, hemoglobin 11.6. IMPRESSION AND RECOMMENDATIONS: 1. Lower gastrointestinal bleeding. At this time, we would hold his Brilinta and Eliquis. The patient appears stable from a cardiac standpoint if endoscopy is felt to be needed. 2. Previous coronary artery stent. No recurrent angina. 3. Hyperlipidemia. The patient is on a statin drug. 4. History of atrial fibrillation. If he has recurrent atrial fibrillation, would consider antiarrhythmic therapy. 5. Previous removal of cancer from his gallbladder. 6. Previous tobacco abuse. 7. History of chronic obstructive pulmonary disease. 8. Previous stroke. <ELECTRONICALLY SIGNED> By: Jed Rock MD, FACC 05/12/18 1655 1631 1902Dliza Rock MD, FAC /nt
[2018-05-12 20:00] VITALS: BP 97/54
[2018-05-13 04:56] LABS: ABSOLUTE BASOPHILS 0.1 thou/uL (0.0-0.2); ABSOLUTE EOSINOPHILS 0.1 thou/uL (0.0-0.7); ABSOLUTE LYMPHOCYTES 0.9 thou/uL (0.8-5.3); ABSOLUTE MONOCYTES 0.6 thou/uL (0.0-1.2); ABSOLUTE NEUTROPHILS 6.5 thou/uL (1.6-8.1); BASOPHILS 0.6 %; EOSINOPHILS 0.7 %; HEMATOCRIT 30.4 % (42.0-52.0); HEMOGLOBIN 10.4 gm/dL (14.0-18.0); LYMPHOCYTES 11.4 %; MCH 31.1 pg (26.0-34.0); MCHC 34.3 g/dL (28.0-37.0); MCV 90.9 fL (80.0-100.0); MONOCYTES 7.5 %; MPV 8.4 fl. (7.2-11.1); NUCLEATED RBCS 0 /100WBC; PLATELET COUNT* 237 thou/uL (150-400); POLYS 79.8 %; RBC 3.35 mil/uL (4.50-6.00); RDW-CV 15.7 % (10.5-14.5); WBC 8.1 thou/uL (4.0-11.0)
[2018-05-13 05:41] LABS: CALCIUM 8.2 mg/dL (8.5-10.1); CREATININE 1.2 mg/dL (0.6-1.3); POTASSIUM 4.1 mmol/L (3.5-5.1)
[2018-05-13 07:45] VITALS: BP 122/58
[2018-05-13 15:46] VITALS: BP 113/57
[2018-05-13 20:00] VITALS: BP 122/63
[2018-05-14 04:06] LABS: ABSOLUTE BASOPHILS 0.1 thou/uL (0.0-0.2); ABSOLUTE EOSINOPHILS 0.2 thou/uL (0.0-0.7); ABSOLUTE LYMPHOCYTES 0.9 thou/uL (0.8-5.3); ABSOLUTE MONOCYTES 0.7 thou/uL (0.0-1.2); ABSOLUTE NEUTROPHILS 5.6 thou/uL (1.6-8.1); BASOPHILS 0.7 %; EOSINOPHILS 2.4 %; HEMATOCRIT 30.1 % (42.0-52.0); HEMOGLOBIN 10.4 gm/dL (14.0-18.0); LYMPHOCYTES 12.4 %; MCH 31.4 pg (26.0-34.0); MCHC 34.6 g/dL (28.0-37.0); MCV 90.8 fL (80.0-100.0); MONOCYTES 9.7 %; MPV 8.5 fl. (7.2-11.1); NUCLEATED RBCS 0 /100WBC; PLATELET COUNT* 224 thou/uL (150-400); POLYS 74.8 %; RBC 3.31 mil/uL (4.50-6.00); RDW-CV 15.5 % (10.5-14.5); WBC 7.4 thou/uL (4.0-11.0)
[2018-05-14 04:08] LABS: CALCIUM 7.9 mg/dL (8.5-10.1); CREATININE 1.1 mg/dL (0.6-1.3); POTASSIUM 3.5 mmol/L (3.5-5.1)
[2018-05-14 08:00] VITALS: BP 107/63
[2018-05-14 16:16] VITALS: BP 111/66
[2018-05-14 20:00] VITALS: BP 106/69
[2018-05-15] VITALS (7 sets, daily range): BP systolic 93–160; BP diastolic 61–98
[2018-05-15 04:01] LABS: HEMATOCRIT 33.4 % (42.0-52.0); HEMOGLOBIN 11.1 gm/dL (14.0-18.0); MCH 30.2 pg (26.0-34.0); MCHC 33.3 g/dL (28.0-37.0); MCV 90.6 fL (80.0-100.0); MPV 8.1 fl. (7.2-11.1); NUCLEATED RBCS 0 /100WBC; PLATELET COUNT* 260 thou/uL (150-400); RBC 3.69 mil/uL (4.50-6.00); RDW-CV 15.3 % (10.5-14.5); WBC 13.2 thou/uL (4.0-11.0)
[2018-05-15 04:18] LABS: ALBUMIN 3.2 g/dL (3.4-5.0); CALCIUM 8.4 mg/dL (8.5-10.1); POTASSIUM 4.2 mmol/L (3.5-5.1); TOTAL BILIRUBIN 0.5 mg/dL (<0.1-1.0); TOTAL PROTEIN 6.8 g/dL (6.4-8.2)
[2018-05-15 05:56] LABS: ABSOLUTE LYMPHOCYTES 0.7 thou/uL (0.8-5.3); ABSOLUTE MONOCYTES 0.4 thou/uL (0.0-1.2); ABSOLUTE NEUTROPHILS 12.1 thou/uL (1.6-8.1); PLATELET ESTIMATE ADEQUATE
[2018-05-15 05:57] LABS: ANISOCYTOSIS 1+; POIKILOCYTOSIS 1+
[2018-05-15 05:58] LABS: OVALOCYTES Occasional; POLYCHROMASIA 1+
[2018-05-16 04:09] LABS: ABSOLUTE BASOPHILS 0.1 thou/uL (0.0-0.2); ABSOLUTE EOSINOPHILS 0.1 thou/uL (0.0-0.7); ABSOLUTE LYMPHOCYTES 1.2 thou/uL (0.8-5.3); ABSOLUTE NEUTROPHILS 6.5 thou/uL (1.6-8.1); BASOPHILS 0.8 %; EOSINOPHILS 1.2 %; HEMOGLOBIN 10.2 gm/dL (14.0-18.0); MCH 30.7 pg (26.0-34.0); MCHC 33.9 g/dL (28.0-37.0); MCV 90.7 fL (80.0-100.0); MONOCYTES 10.9 %; MPV 8.5 fl. (7.2-11.1); NUCLEATED RBCS 0 /100WBC; PLATELET COUNT* 242 thou/uL (150-400); POLYS 73.1 %; RBC 3.31 mil/uL (4.50-6.00); RDW-CV 15.3 % (10.5-14.5); WBC 8.9 thou/uL (4.0-11.0)
[2018-05-16 04:22] LABS: CALCIUM 7.9 mg/dL (8.5-10.1); CREATININE 1.1 mg/dL (0.6-1.3); POTASSIUM 3.6 mmol/L (3.5-5.1)
[2018-05-16 05:48] LABS: ESR (SEDRATE) 55 mm/hr (0-20)
[2018-05-16 08:00] VITALS: BP 103/60
[2018-05-16 16:32] VITALS: BP 129/70
[2018-05-16 19:50] VITALS: BP 113/66
[2018-05-17 05:05] VITALS: BP 160/98
[2018-05-17 05:17] LABS: ABSOLUTE BASOPHILS 0.1 thou/uL (0.0-0.2); ABSOLUTE EOSINOPHILS 0.2 thou/uL (0.0-0.7); ABSOLUTE LYMPHOCYTES 1.5 thou/uL (0.8-5.3); ABSOLUTE MONOCYTES 0.9 thou/uL (0.0-1.2); ABSOLUTE NEUTROPHILS 5.3 thou/uL (1.6-8.1); BASOPHILS 0.9 %; EOSINOPHILS 2.2 %; HEMATOCRIT 28.3 % (42.0-52.0); LYMPHOCYTES 18.6 %; MCH 31.7 pg (26.0-34.0); MCHC 35.4 g/dL (28.0-37.0); MCV 89.7 fL (80.0-100.0); MPV 8.3 fl. (7.2-11.1); NUCLEATED RBCS 0 /100WBC; PLATELET COUNT* 225 thou/uL (150-400); POLYS 67.3 %; RBC 3.16 mil/uL (4.50-6.00); RDW-CV 14.9 % (10.5-14.5); WBC 7.8 thou/uL (4.0-11.0)
[2018-05-17 05:27] LABS: ALBUMIN 2.7 g/dL (3.4-5.0); CALCIUM 7.8 mg/dL (8.5-10.1); POTASSIUM 3.4 mmol/L (3.5-5.1); TOTAL BILIRUBIN 0.6 mg/dL (<0.1-1.0); TOTAL PROTEIN 5.6 g/dL (6.4-8.2)
[2018-05-17 10:00] VITALS: BP 123/57
[2018-05-17 18:03] VITALS: BP 101/54
[2018-05-17 19:40] VITALS: BP 93/74
[2018-05-18 04:27] LABS: ABSOLUTE EOSINOPHILS 0.2 thou/uL (0.0-0.7); ABSOLUTE LYMPHOCYTES 1.2 thou/uL (0.8-5.3); ABSOLUTE MONOCYTES 0.9 thou/uL (0.0-1.2); ABSOLUTE NEUTROPHILS 6.8 thou/uL (1.6-8.1); BASOPHILS 0.5 %; EOSINOPHILS 1.9 %; HEMATOCRIT 30.1 % (42.0-52.0); HEMOGLOBIN 10.3 gm/dL (14.0-18.0); LYMPHOCYTES 12.8 %; MCH 30.8 pg (26.0-34.0); MCHC 34.2 g/dL (28.0-37.0); MCV 89.9 fL (80.0-100.0); MONOCYTES 9.6 %; MPV 8.8 fl. (7.2-11.1); NUCLEATED RBCS 0 /100WBC; PLATELET COUNT* 225 thou/uL (150-400); POLYS 75.2 %; RBC 3.35 mil/uL (4.50-6.00); RDW-CV 14.9 % (10.5-14.5); WBC 9.1 thou/uL (4.0-11.0)
[2018-05-18 04:50] LABS: CALCIUM 8.5 mg/dL (8.5-10.1); POTASSIUM 3.5 mmol/L (3.5-5.1)
[2018-05-18 08:15] VITALS: BP 103/62
[2018-05-18 10:58] VITALS: BP 103/62
[2018-05-18] MEDS ORDERED: RANEXA500 MG PO (11:09)
[2018-05-18 14:45] VITALS: BP 103/62
--- NOTE | 2018-05-20 11:08 | PATH ---
[address] [address] PATHOLOGY RPT PROCEDURE Name: BHARAT NUNES Room: [address] IN M.R.#: [id number] Admission: 05/11/18 Date of : 41 Discharge: 05/18/18 Report #: [id number] Path Case #: [id number] [facility] Accession Number: [id number] . 01 Material submitted: . PART A: PROXIMAL DESCENDING POLYP PART B: RECTAL POLYP . 01 Clinical history: . Hematochezia, AVM's . 02 Diagnosis: A. Proximal descending polyp: - Tubular adenoma, negative for high grade dysplasia. . B. Rectal polyp: - Tubular adenoma, negative for high grade dysplasia. . (MARIANA:at;05/19/2018) QTA/05/19/2018 . 02 Electronically signed: . Alen Bustillos MD, Pathologist NPI- [id number] . 01 Gross description: . A. The specimen is received in formalin, labeled "Bharat Nunes, proximal descending polyp" and consists of a fragment of dickinson tissue measuring 0.4 x 0.4 x 0.2 cm. The margin is inked black. It is bisected and entirely submitted in A1. . B. The specimen is received in formalin, labeled "Bharat Nunes, rectal polyp" and consists of a sessile and polypoid segment of dickinson-brown tissue measuring 1.3 x 0.8 x 0.6 cm. The margin is inked black. It is serially sectioned and entirely submitted in B1. Also received are multiple fragments of dickinson tissue measuring 1.7 x 0.8 x 0.3 cm in aggregate which are entirely submitted in B2. (SDY; 05/18/2018) SYU/SYU . 02 Pathologist provided ICD-10: D12.4, D12.8 . 02 CPT . 705295, 850366 Specimen Comment: A courtesy copy of this report has been sent to Specimen Comment: [phone], , , . Specimen Comment: Report sent to ,DR THOMPSON,[place] [address] PATHOLOGY RPT PROCEDURE Name: BHARAT NUNES KAILEE Room: [address] IN M.R.#: [id number] Admission: 05/11/18 Date of : 41 Discharge: 05/18/18 Report #: [id number] Path Case #: [id number] Specimen Comment: DR LEWIS Specimen Comment: A duplicate report has been generated due to demographic updates. Performed at: [address] [facility] [address], [place], [place] [id number] MD Anton Ahuja MD Phone: [phone] Performed at: [address] [facility] [address] [place], [place] [id number] MD Alen Bustillos MD Phone: [phone]
== END 2018-05-18 12:00 | disposition home or self-care (01) | DRG 393 ==
LOC: M.ORTHSURG 14:07
PROVIDERS: Family Medicine; Internal Medicine Gastroenterology; ADMIT Internal Medicine
PROC: 0DJD8ZZ Inspection of Lower Intestinal Tract, Via Natural or Artificial Opening Endoscopic (ICD-10-PCS; principal; 2018-05-15)
PROC: 0D9680Z Drainage of Stomach with Drainage Device, Via Natural or Artificial Opening Endoscopic (ICD-10-PCS; principal; 2018-05-15)
PROC: 0DBP8ZZ Excision of Rectum, Via Natural or Artificial Opening Endoscopic (ICD-10-PCS; 2018-05-17)
PROC: 0DBM8ZZ Excision of Descending Colon, Via Natural or Artificial Opening Endoscopic (ICD-10-PCS; 2018-05-17)
DX: K64.9 Unspecified hemorrhoids (principal); K55.21 Angiodysplasia of colon with hemorrhage; K57.31 Diverticulosis of large intestine without perforation or abscess with bleeding; D62 Acute posthemorrhagic anemia; E44.1 Mild protein-calorie malnutrition; I48.91 Unspecified atrial fibrillation; E78.5 Hyperlipidemia, unspecified; I48.0 Paroxysmal atrial fibrillation; R09.02 Hypoxemia; D50.9 Iron deficiency anemia, unspecified; D63.8 Anemia in other chronic diseases classified elsewhere; D12.4 Benign neoplasm of descending colon; K62.1 Rectal polyp; Z98.0 Intestinal bypass and anastomosis status; G31.84 Mild cognitive impairment of uncertain or unknown etiology; I25.10 Atherosclerotic heart disease of native coronary artery without angina pectoris; J44.9 Chronic obstructive pulmonary disease, unspecified; Z85.118 Personal history of other malignant neoplasm of bronchus and lung; Z85.51 Personal history of malignant neoplasm of bladder; Z95.5 Presence of coronary angioplasty implant and graft; Z86.73 Personal history of transient ischemic attack (TIA), and cerebral infarction without residual deficits; Z88.8 Allergy status to other drugs, medicaments and biological substances; Z87.891 Personal history of nicotine dependence; Z90.5 Acquired absence of kidney; Z87.01 Personal history of pneumonia (recurrent); Z79.01 Long term (current) use of anticoagulants; Z79.899 Other long term (current) drug therapy; Z68.25 Body mass index [BMI] 25.0-25.9, adult

== ENCOUNTER → 2018-05-11 | Outpatient (CLI) | payer OTHER ==
[~2018-05-11] VITALS: Ht 180.3 cm; Wt 66.2 kg
[2018-05-11 12:27] LABS: ABSOLUTE BASOPHILS 0.1 thou/uL (0.0-0.2); ABSOLUTE EOSINOPHILS 0.2 thou/uL (0.0-0.7); ABSOLUTE LYMPHOCYTES 1.5 thou/uL (0.8-5.3); ABSOLUTE MONOCYTES 0.6 thou/uL (0.0-1.2); ABSOLUTE NEUTROPHILS 5.3 thou/uL (1.6-8.1); BASOPHILS 1.2 %; EOSINOPHILS 2.2 %; HEMATOCRIT 35.5 % (42.0-52.0); HEMOGLOBIN 11.8 gm/dL (14.0-18.0); LYMPHOCYTES 19.1 %; MCH 30.1 pg (26.0-34.0); MCHC 33.3 g/dL (28.0-37.0); MCV 90.6 fL (80.0-100.0); MONOCYTES 8.2 %; MPV 7.8 fl. (7.2-11.1); NUCLEATED RBCS 0 /100WBC; PLATELET COUNT* 282 thou/uL (150-400); POLYS 69.3 %; RBC 3.92 mil/uL (4.50-6.00); RDW-CV 15.5 % (10.5-14.5); WBC 7.6 thou/uL (4.0-11.0)
[2018-05-11 15:09] VITALS: BP 122/74
== END ==
LOC: M.LAB 11:58
PROVIDERS: Internal Medicine
DX: K92.2 Gastrointestinal hemorrhage, unspecified (principal); J43.1 Panlobular emphysema; I25.119 Atherosclerotic heart disease of native coronary artery with unspecified angina pectoris; I25.10 Atherosclerotic heart disease of native coronary artery without angina pectoris

== ENCOUNTER → 2018-07-23 | Outpatient (CLI) | payer OTHER ==
[~2018-07-23] MED LIST changes: +RANEXA500 MG PO
[2018-07-23 09:38] LABS: ALBUMIN 3.8 g/dL (3.4-5.0); CREATININE 1.2 mg/dL (0.6-1.3); POTASSIUM 4.3 mmol/L (3.5-5.1); TOTAL BILIRUBIN 0.4 mg/dL (<0.1-1.0); TOTAL PROTEIN 7.1 g/dL (6.4-8.2)
[2018-07-23 09:41] LABS: ABSOLUTE BASOPHILS 0.1 thou/uL (0.0-0.2); ABSOLUTE EOSINOPHILS 0.3 thou/uL (0.0-0.7); ABSOLUTE LYMPHOCYTES 1.6 thou/uL (0.8-5.3); ABSOLUTE MONOCYTES 0.6 thou/uL (0.0-1.2); ABSOLUTE NEUTROPHILS 3.2 thou/uL (1.6-8.1); BASOPHILS 1.5 %; EOSINOPHILS 4.4 %; HEMATOCRIT 39.9 % (42.0-52.0); HEMOGLOBIN 13.4 gm/dL (14.0-18.0); LYMPHOCYTES 28.4 %; MCH 30.4 pg (26.0-34.0); MCHC 33.6 g/dL (28.0-37.0); MCV 90.4 fL (80.0-100.0); MONOCYTES 10.1 %; MPV 9.2 fl. (7.2-11.1); NUCLEATED RBCS 0 /100WBC; PLATELET COUNT* 187 thou/uL (150-400); POLYS 55.6 %; RBC 4.42 mil/uL (4.50-6.00); WBC 5.7 thou/uL (4.0-11.0)
[2018-07-23 10:41] LABS: ESR (SEDRATE) 11 mm/hr (0-20)
== END ==
LOC: M.LAB 09:02
PROVIDERS: Internal Medicine Gastroenterology
DX: K92.2 Gastrointestinal hemorrhage, unspecified (principal); D64.9 Anemia, unspecified

== ENCOUNTER 2019-01-04 19:03 | Emergency (ER) | payer OTHER ==
[~2019-01-04] VITALS: Ht 180.3 cm; Wt 64.0 kg
[~2019-01-04 19:03] MED LIST changes: -ATORVASTATIN CA40 MG PO; +LIPITOR40 MG PO
[2019-01-04 20:34] LABS: ABSOLUTE BASOPHILS 0.1 thou/uL (0.0-0.2); ABSOLUTE EOSINOPHILS 0.1 thou/uL (0.0-0.7); ABSOLUTE LYMPHOCYTES 1.5 thou/uL (0.8-5.3); ABSOLUTE MONOCYTES 0.6 thou/uL (0.0-1.2); ABSOLUTE NEUTROPHILS 11.5 thou/uL (1.6-8.1); BASOPHILS 0.7 %; EOSINOPHILS 0.7 %; HEMATOCRIT 41.8 % (42.0-52.0); HEMOGLOBIN 14.4 gm/dL (14.0-18.0); LYMPHOCYTES 10.6 %; MCH 31.7 pg (26.0-34.0); MCHC 34.6 g/dL (28.0-37.0); MCV 91.7 fL (80.0-100.0); MONOCYTES 4.4 %; MPV 9.3 fl. (7.2-11.1); NUCLEATED RBCS 0 /100WBC; PLATELET COUNT* 165 thou/uL (150-400); POLYS 83.6 %; RBC 4.56 mil/uL (4.50-6.00); RDW-CV 14.1 % (10.5-14.5); WBC 13.7 thou/uL (4.0-11.0)
[2019-01-04 20:42] LABS: ANION GAP 10 mmol/L (7-16); BUN 15 mg/dL (7-18); CALCIUM 8.9 mg/dL (8.5-10.1); CHLORIDE 105 mmol/L (98-107); CO2 28 mmol/L (21-32); CREATININE 1.2 mg/dL (0.6-1.3); GLUCOSE 126 mg/dL (70-99); POTASSIUM 3.9 mmol/L (3.5-5.1); SODIUM 143 mmol/L (136-145)
[2019-01-04 20:44] LABS: APTT 30.4 Seconds (25.0-31.3); PROTIME 10.7 Seconds (9.20-11.50)
[2019-01-04 20:55] LABS: ALKALINE PHOSPHATASE 68 U/L (46-116); CK-MB MASS 3.3 ng/mL (<0.5-3.6); NT-PRO BRAIN NAT PEPTIDE 128 pg/mL (<300); SGOT 13 U/L (15-37); SGPT 20 U/L (30-65); TOTAL BILIRUBIN 0.4 mg/dL (<0.1-1.0); TOTAL PROTEIN 7.3 g/dL (6.4-8.2); TROPONIN-I LEVEL <0.06 ng/mL (<0.06)
[2019-01-04 21:30] LABS: URINE BILIRUBIN NEGATIVE (Negative); URINE BLOOD NEGATIVE (Negative); URINE CLARITY CLEAR; URINE COLOR YELLOW; URINE GLUCOSE-RANDOM NEGATIVE (Negative); URINE KETONES NEGATIVE (Negative); URINE LEUKOCYTES-REFLEX NEGATIVE (Negative); URINE NITRITE-REFLEX NEGATIVE (Negative); URINE PROTEIN NEGATIVE (Negative); URINE UROBILINOGEN 0.2 E.U./dl (0.2-1.0)
[2019-01-04] MEDS ORDERED: ZOFRAN ODT4 MG SUBLING (22:04)
[2019-01-04 22:28] VITALS: BP 110/60
--- NOTE | 2019-01-05 16:42 | EKG ---
[place] [address] ELECTROCARDIOGRAM REPORT Name: BHARAT CERVANTES Room: [facility].#: [id number] Admission: 01/04/19 Attend Phys: Discharge: 01/04/19 Date of : 41 Report #: [id number] THIS REPORT FOR: //name// [facility] ED Test Date: 2019-01-04 Test Time: 19:14:35 Pat Name: BHARAT CERVANTES Department: Room: Gender: M Cotton Factor: CODY : 1945 Requested By: Johan Lua Order Number: [id number] MD: Breezy Guy Measurements Intervals [place] Rate: 60 P: 63 AK: 98 QRS: 80 QRSD: 100 T: 61 QT: 451 QTc: 451 Interpretive Statements Sinus rhythm Short [place] interval Compared to ECG 05/12/2018 14:30:30 Short [place] interval now present Electronically Signed On 01-05-2019 16:42:10 CDT by Breezy Guy [email or web address] <ELECTRONICALLY SIGNED> By: Breezy Guy MD, [facility] 01/05/19 1642 13 13 Breezy Guy MD, FACC /EPI
[2019-02-23] MEDS ORDERED: PROAIR RESPICL90 MCG INH (11:49)
[2019-02-23] MEDS ORDERED: FOSAMAX 70 MG T70 MG PO (11:50)
[2019-02-23] MEDS ORDERED: SYMBICORT80 MCG/4.1 INH (11:51)
[2019-02-23] MEDS ORDERED: CARDIZEM CD 18180 M3 PO (11:52)
[2019-02-23] MEDS ORDERED: ELIQUIS5 MG PO (11:53)
[2019-02-23] MEDS ORDERED: COMBIVENT INH (13:36)
[2019-02-23] MEDS ORDERED: MELATONIN3 M1 PO (13:37)
== END 2019-01-04 22:30 | disposition home or self-care (01) ==
LOC: M.ERS 19:03
PROVIDERS: Family Medicine
DX: R51 Headache (principal); R11.2 Nausea with vomiting, unspecified; J44.9 Chronic obstructive pulmonary disease, unspecified; I48.91 Unspecified atrial fibrillation; Z85.118 Personal history of other malignant neoplasm of bronchus and lung; Z86.018 Personal history of other benign neoplasm; Z88.8 Allergy status to other drugs, medicaments and biological substances; Z88.5 Allergy status to narcotic agent; Z87.891 Personal history of nicotine dependence

== ENCOUNTER → 2019-01-05 | Outpatient (CLI) | payer OTHER ==
[~2019-01-05] MED LIST changes: +ATORVASTATIN CA40 MG PO; -LIPITOR40 MG PO; +ZOFRAN ODT4 MG SUBLING
== END ==
LOC: M.LAB 08:00 → M.CT 09:00
DX: I70.8 Atherosclerosis of other arteries (principal); Z79.899 Other long term (current) drug therapy

== ENCOUNTER 2019-03-02 08:46 | Inpatient (IN) | payer OTHER ==
[~2019-03-02] VITALS: Ht 180.3 cm; Wt 61.2 kg
[2019-03-02] VITALS (15 sets, daily range): BP systolic 70–132; BP diastolic 44–82
[~2019-03-02 08:46] MED LIST changes: -ATORVASTATIN CA40 MG PO; +CARDIZEM CD 18180 M3 PO; +FOSAMAX 70 MG T70 MG PO; +LIPITOR40 MG PO; +MELATONIN3 M1 PO; +PROAIR RESPICL90 MCG INH; +SYMBICORT80 MCG/4.1 INH
[2019-03-02] MEDS ORDERED: FLONASE 0.05%50 MCG NASAL (12:43)
[2019-03-02 12:57] LABS: ABSOLUTE BASOPHILS 0.1 thou/uL (0.0-0.2); ABSOLUTE EOSINOPHILS 0.2 thou/uL (0.0-0.7); ABSOLUTE LYMPHOCYTES 1.9 thou/uL (0.8-5.3); ABSOLUTE MONOCYTES 0.6 thou/uL (0.0-1.2); ABSOLUTE NEUTROPHILS 5.4 thou/uL (1.6-8.1); EOSINOPHILS 2.1 %; HEMATOCRIT 41.5 % (42.0-52.0); HEMOGLOBIN 14.3 gm/dL (14.0-18.0); LYMPHOCYTES 23.2 %; MCH 32.1 pg (26.0-34.0); MCHC 34.4 g/dL (28.0-37.0); MCV 93.2 fL (80.0-100.0); MONOCYTES 7.3 %; MPV 8.4 fl. (7.2-11.1); NUCLEATED RBCS 0 /100WBC; PLATELET COUNT* 187 thou/uL (150-400); POLYS 66.4 %; RBC 4.45 mil/uL (4.50-6.00); RDW-CV 14.3 % (10.5-14.5); WBC 8.2 thou/uL (4.0-11.0)
[2019-03-02 13:04] LABS: CALCIUM 8.9 mg/dL (8.5-10.1); CREATININE 1.1 mg/dL (0.6-1.3); POTASSIUM 4.4 mmol/L (3.5-5.1)
[2019-03-02 18:19] LABS: HEMATOCRIT 35.2 % (42.0-52.0)
[2019-03-02 18:21] LABS: HEMOGLOBIN 12.1 gm/dL (14.0-18.0)
[2019-03-03] VITALS (13 sets, daily range): BP systolic 93–134; BP diastolic 53–65
[2019-03-03 05:13] LABS: HEMATOCRIT 33.1 % (42.0-52.0); HEMOGLOBIN 11.5 gm/dL (14.0-18.0); MCH 30.8 pg (26.0-34.0); MCHC 34.8 g/dL (28.0-37.0); MCV 88.4 fL (80.0-100.0); RBC 3.75 mil/uL (4.50-6.00); WBC 11.2 thou/uL (4.0-11.0)
[2019-03-03 05:26] LABS: CREATININE 1.3 mg/dL (0.6-1.3); POTASSIUM 4.5 mmol/L (3.5-5.1)
--- NOTE | 2019-03-03 05:39 | NUR ---
VITALS STABLE, AFEBRILE. PT SLEPT THROUGH THE NIGHT. NO BM, NO UOP THIS EVENING. COMPLAINED OF NECK PAIN, COMPLETE RELIEF WITH MEDS. PULSES PRESENT AND STRONG IN ALL EXTREMITIES, BP WNL, ON 1.5L O2 PER NC. NO CHANGE IN LEFT NECK SITE. PT ALERT AND ORIENTED AND WATCHING TV AT THIS TIME. CALL LIGHT WITHIN REACH.
[2019-03-03] MEDS ORDERED: ASPIR 8181 MG PO (07:29)
--- NOTE | 2019-03-03 10:41 | NUR ---
Nutrition: Consult for "underweight." Pt's usual weight for years has been 138#; no recent wt changes. BMI 18.8. Albumin 4, WBC 11.2, BG 187. Diet just advanced to Ful Liq. Per ICU rounds, pt will likely disch if he tolerates Full liquids. No nutrition interventions at this time. Low risk.
[2019-03-03] MEDS ORDERED: NORCO 5-325 TA1 EAC1 PO (11:20)
--- NOTE | 2019-03-03 11:26 | NUR ---
ICU rounds: Pt had carotid bypass yesterday. Plan dc to home today pending eating solids and OOB.
[2019-03-03] MEDS ORDERED: HYDROCODON-ACE1 EAC7 PO (11:58)
--- NOTE | 2019-03-03 12:44 | NUR ---
ASSUMED CARE AT 1910H,ON NC AT 1LPM AND TOLERATED.NO BLEEDING.PT SEEN BY HOSPITALIST AND STEAM ENGINEER VASCULAR.PT FOR DISCHARGE, PT ATE HIS FOOD AND AMBULATE WELL AND TOLERATED.DISCHARGE INSTRUCTION GIVEN,IV REMOVED AND PT OUT OFF THE ICU AMBULATORY AT 1215.
[2019-03-04] MEDS ORDERED: DOK PLUS TABLE1 EACH PO (10:08)
--- NOTE | 2019-03-04 12:52 | OP ---
[facility] [address] [place] [address] OPERATIVE REPORT Name: BHARAT CERVANTES Room: [address] IN M.R.#: [id number] Admission: 03/02/19 Attend Phys: Vijay Scott Discharge: 03/03/19 Date of : 41 Report #: [id number] THIS REPORT FOR: //name// CC: Jed Gonzalez DATE OF SERVICE: 03/02/2019 PREOPERATIVE DIAGNOSIS: Left subclavian artery occlusion. POSTOPERATIVE DIAGNOSIS: Left subclavian artery occlusion. PROCEDURE: Left common carotid to left subclavian artery bypass using a 6-mm ringed PTFE graft. SURGEON: Bharat Salgado MD ASSISTANTS: 1. Dr. Dickerson. 2. Dr. Wheeler. 3. ARELI Mccarthy. COMPLICATIONS: None. ESTIMATED BLOOD LOSS: 1 L. ANESTHESIA: General. SPECIMEN: None. COMPLICATIONS: None. INDICATIONS FOR PROCEDURE: The patient is a very pleasant 73-year-old white male who has had a 1-month history of worsening left arm numbness and weakness. He has no pulse of the left hand. 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 We plan for a left carotid subclavian bypass today. Informed consent was obtained from the patient with risks including but not limited to bleeding, infection, need for further surgery, pain, , heart attack, stroke, and amputation. The patient understood these risks and was agreeable to proceed. DESCRIPTION OF PROCEDURE: The patient was taken to the OR and placed in supine position. General anesthesia was initiated. The patient's left neck and chest were prepped and draped in usual sterile fashion. Timeout was performed. I created a transverse incision just above the left clavicle, approximately 1 [place] [address] OPERATIVE REPORT Name: BHARAT CERVANTES Room: [address] IN [facility].#: [id number] Admission: 03/02/19 Attend Phys: Vijay Scott Discharge: 03/03/19 Date of : 43 Report #: [id number] it. Sharp and blunt dissections were carried down behind the sternocleidomastoid muscle until I encountered the common carotid artery. I controlled this proximally and distally with vessel loops. I then dissected out the subclavian artery. I mobilized the scalene fat pad superiorly and laterally. I identified the subclavian artery. I controlled this proximally and distally. I opened a 6-mm ring PTFE graft. I heparinized the patient at this point in time. I trimmed and spatulated the free ends of the graft to the appropriate lengths. I clamped the common carotid artery. I created an end-to-side anastomosis after creating a longitudinal arteriotomy to the PTFE using a running 5-0 Prolene suture. At the completion of anastomosis, there was adequate hemostasis. There was excellent flow through the graft. I created a longitudinal arteriotomy in the subclavian artery. I created end-to-side anastomosis using a running 5-0 Prolene suture. At the completion of anastomosis, there was adequate hemostasis. There was excellent blood flow through the graft into the subclavian artery with multiphasic signal distal to the bypass. With clamping of the bypass graft, there was augmentation of the flow. We irrigated the wound with antibiotic saline. We controlled bleeding as needed with electrocautery, ties, clips, and Tayo. We corrected the heparin with protamine. We closed the wound in multiple layers using 2-0 Vicryl, 3-0 Vicryl, and Stratafix for the skin. The patient tolerated the procedure well and was taken alert and awake to recovery room in good condition. We dressed the incision with Dermabond. The patient had a palpable pulse at the completion of the procedure. <ELECTRONICALLY SIGNED> By: Bharat Salgado MD 03/04/19 1252 1533 1704Ramina Salgado MD /nt
== END 2019-03-03 12:15 | disposition home or self-care (01) | DRG 253 ==
LOC: M.PRE 08:46 → M.ICU 11:37 → M.TBA 11:37 → M.SUR 11:53 → EDSTATUS 11:54 → M.PRE 11:56 → M.ICU 17:51
PROVIDERS: Surgery Vascular Surgery; ADMIT Internal Medicine
PROC: 031J0JY Bypass Left Common Carotid Artery to Upper Artery with Synthetic Substitute, Open Approach (ICD-10-PCS; principal; 2019-03-02)
PROC: 30233N1 Transfusion of Nonautologous Red Blood Cells into Peripheral Vein, Percutaneous Approach (ICD-10-PCS; principal; 2019-03-02)
DX: I70.8 Atherosclerosis of other arteries (principal); D62 Acute posthemorrhagic anemia; I48.0 Paroxysmal atrial fibrillation; E78.5 Hyperlipidemia, unspecified; J44.9 Chronic obstructive pulmonary disease, unspecified; Z85.118 Personal history of other malignant neoplasm of bronchus and lung; Z87.891 Personal history of nicotine dependence; Z88.8 Allergy status to other drugs, medicaments and biological substances; Z79.82 Long term (current) use of aspirin; Z79.899 Other long term (current) drug therapy; Z28.21 Immunization not carried out because of patient refusal

== ENCOUNTER 2019-03-03 17:54 | Inpatient (IN) | payer OTHER ==
[~2019-03-03] VITALS: Ht 180.3 cm; Wt 66.8 kg
[~2019-03-03 17:54] MED LIST changes: +FLONASE 0.05%50 MCG NASAL; +HYDROCODON-ACE1 EAC7 PO; +NORCO 5-325 TA1 EAC1 PO
[2019-03-03 18:01] VITALS: BP 80/33
[2019-03-03 18:26] LABS: ABSOLUTE BASOPHILS 0.1 thou/uL (0.0-0.2); ABSOLUTE LYMPHOCYTES 1.3 thou/uL (0.8-5.3); ABSOLUTE MONOCYTES 1.7 thou/uL (0.0-1.2); BASOPHILS 0.3 %; HEMATOCRIT 31.2 % (42.0-52.0); HEMOGLOBIN 10.8 gm/dL (14.0-18.0); LYMPHOCYTES 7.4 %; MCHC 34.7 g/dL (28.0-37.0); MCV 89.4 fL (80.0-100.0); MONOCYTES 9.2 %; MPV 8.3 fl. (7.2-11.1); NUCLEATED RBCS 0 /100WBC; PLATELET COUNT* 149 thou/uL (150-400); POLYS 83.1 %; RBC 3.49 mil/uL (4.50-6.00); RDW-CV 16.9 % (10.5-14.5); WBC 18.1 thou/uL (4.0-11.0)
[2019-03-03 18:35] LABS: CALCIUM 8.5 mg/dL (8.5-10.1); CREATININE 1.6 mg/dL (0.6-1.3); POTASSIUM 4.7 mmol/L (3.5-5.1)
[2019-03-03 18:36] LABS: APTT 27.8 Seconds (25.0-31.3); INR 1.1; PROTIME 11.7 Seconds (9.20-11.50)
[2019-03-03 18:39] LABS: ALBUMIN 3.3 g/dL (3.4-5.0); TOTAL BILIRUBIN 0.6 mg/dL (<0.1-1.0); TOTAL PROTEIN 6.1 g/dL (6.4-8.2)
[2019-03-03 20:00] VITALS: BP 99/62
[2019-03-03 20:10] VITALS: BP 96/55
[2019-03-04] VITALS (7 sets, daily range): BP systolic 90–129; BP diastolic 46–75
[2019-03-04 04:29] LABS: URINE BILIRUBIN NEGATIVE (Negative); URINE BLOOD NEGATIVE (Negative); URINE CLARITY CLEAR; URINE COLOR YELLOW; URINE GLUCOSE-RANDOM NEGATIVE (Negative); URINE KETONES NEGATIVE (Negative); URINE LEUKOCYTES-REFLEX NEGATIVE (Negative); URINE NITRITE-REFLEX NEGATIVE (Negative); URINE PROTEIN NEGATIVE (Negative); URINE SPECIFIC GRAVITY 1.025 (1.005-1.030); URINE UROBILINOGEN 0.2 E.U./dl (0.2-1.0)
--- NOTE | 2019-03-04 06:01 | NUR ---
RECEIVED ER REPORT ON PATIENT AT 1999. PATIENT ORIENTED TO ROOM, CALL LIGHT SHOWN TO PATIENT. FALL AGREEMENT REVIEWED WITH PATIENT, SIGNED BY PATIENT. ADMISSION COMPLETED DOCUMENTED. IV PATENT, FLUIDS INFUSING. PATIENT EXPRESSES NO CONCERNS AT THIS TIME. TELE MONITOR IN PLACE. WILL CONTINUE TO WITH PLAN OF CARE.
--- NOTE | 2019-03-04 06:47 | NUR ---
I HAVE REVIEWED THE CHARTING OF GEORGE VARGAS. I CONCUR WITH HIS DOCUMENTATION.
[2019-03-04] MEDS ORDERED: DOK PLUS TABLE1 EACH PO (10:08)
--- NOTE | 2019-03-04 10:30 | EKG ---
[place] [address] ELECTROCARDIOGRAM REPORT Name: BHARAT CERVANTES Room: [address] ADM IN M.R.#: [id number] Admission: 03/03/19 Attend Phys: Gabriel Anne MD Discharge: Date of : 43 Report #: [id number] THIS REPORT FOR: //name// [facility] ED Test Date: 2019-03-03 Test Time: 18:02:18 Pat Name: BHARAT CERVANTES Department: Room: [facility] Gender: M Edge Polisher: ELVIA : 1945 Requested By: Johan Lua Order Number: [id number] MD: Haroldo Luis Measurements Intervals [place] Rate: 73 P: 45 [place]: 90 QRS: 83 QRSD: 105 T: 69 QT: 380 QTc: 419 Interpretive Statements Sinus rhythm Short [place] interval Borderline right axis deviation Compared to ECG 01/04/2019 19:14:35 No significant changes Electronically Signed On 03-04-2019 10:29:49 MERCHANDISE COMPLAINT ADJUSTER by Haroldo Luis [email or web address] <ELECTRONICALLY SIGNED> By: Haroldo Luis MD, [facility] 03/04/19 1029 01 01 Haroldo Luis MD, FAC /EPI
[2019-03-04 11:55] LABS: CALCIUM 7.8 mg/dL (8.5-10.1); CREATININE 1.4 mg/dL (0.6-1.3); POTASSIUM 4.5 mmol/L (3.5-5.1)
--- NOTE | 2019-03-04 16:00 | NUR ---
RECEIVED REPORT FROM MAIRA VARGAS. ASSUMED CARE OF PT AROUND 0730. PT A&O X4. VSS. ABLE TO TITRATE TO RA. ANIMAL SHELTER WORKER IN PLACE TRACING SR. AM ASSESSMENT AND VITALS COMPLETED CHARTED. PT REPORTED LOWER BELLY PAIN THIS AM - BLADDER SCAN REVEALED >999 IN BLADDER. PT STRAIGHT CATHETERIZE - 1200MLS OUT. PT REPORTED RELIEF FROM ABDOMINAL PAIN AFTERWARDS. AT BEDSIDE. DISCHARGE ORDERS RECEIVED. DISCHARGE COMPLETED DOCUMENTED. DISHCARGE SUMMARY, CARE NOTES GONE OVER WITH PT, PT COMMUNICATES UNDERSTANDING. SCRIPT SENT TO PHARMACY. PT EDUCATED ON ORTHOSTATIC HYPOTENSION - TAUGHT TO CHANGE POSITIONS SLOWLY. PT AWARE TO SET UP EMERGENT APPOINTMENT WITH HIS UROLOGIST. PT AND COMMUNICATE UNDERSTANDING OF ALL TEACHING. PT LEFT UNIT WALKING WITH NURSING STAFF. PT LEFT HOSPITAL IN CAR WITH . IV AND ANIMAL SHELTER WORKER REMOVED. ALL BELONGINGS GATHERED AND SENT HOME WITH PT.
== END 2019-03-04 15:50 | disposition home or self-care (01) | DRG 312 ==
LOC: M.ERS 17:54 → M.TBA-ER 18:45 → M.2W 18:45
PROVIDERS: Family Medicine; Internal Medicine; ADMIT Internal Medicine
DX: I95.1 Orthostatic hypotension (principal); E44.1 Mild protein-calorie malnutrition; N17.9 Acute kidney failure, unspecified; J44.9 Chronic obstructive pulmonary disease, unspecified; I48.91 Unspecified atrial fibrillation; I25.10 Atherosclerotic heart disease of native coronary artery without angina pectoris; I95.9 Hypotension, unspecified; I70.8 Atherosclerosis of other arteries; D64.9 Anemia, unspecified; I73.9 Peripheral vascular disease, unspecified; K59.00 Constipation, unspecified; E86.9 Volume depletion, unspecified; S00.83XA Contusion of other part of head, initial encounter; Z79.82 Long term (current) use of aspirin; Z85.118 Personal history of other malignant neoplasm of bronchus and lung; Z95.1 Presence of aortocoronary bypass graft; Z88.8 Allergy status to other drugs, medicaments and biological substances; Z87.891 Personal history of nicotine dependence; Z85.46 Personal history of malignant neoplasm of prostate; Z68.20 Body mass index [BMI] 20.0-20.9, adult; Z79.899 Other long term (current) drug therapy; Z23 Encounter for immunization; W18.39XA Other fall on same level, initial encounter; Y93.89 Activity, other specified; Y92.89 Other specified places as the place of occurrence of the external cause; Y99.8 Other external cause status

== ENCOUNTER 2019-03-11 17:12 | Emergency (ER) | payer OTHER ==
[~2019-03-11] VITALS: Ht 180.3 cm; Wt 62.1 kg
[~2019-03-11 17:12] MED LIST changes: +DOK PLUS TABLE1 EACH PO
[2019-03-11 17:56] VITALS: BP 107/70
== END 2019-03-11 17:56 | disposition home or self-care (01) ==
LOC: M.ERS 17:12
DX: Z48.01 Encounter for change or removal of surgical wound dressing (principal); J44.9 Chronic obstructive pulmonary disease, unspecified; I25.10 Atherosclerotic heart disease of native coronary artery without angina pectoris; I48.0 Paroxysmal atrial fibrillation; Z88.6 Allergy status to analgesic agent; Z87.891 Personal history of nicotine dependence; Z85.118 Personal history of other malignant neoplasm of bronchus and lung

== ENCOUNTER 2019-09-17 20:54 | Emergency (ER) | payer OTHER ==
[~2019-09-17] VITALS: Ht 180.3 cm; Wt 61.7 kg
[2019-09-17 21:17] LABS: ABSOLUTE BASOPHILS 0.1 thou/uL (0.0-0.2); ABSOLUTE EOSINOPHILS 0.2 thou/uL (0.0-0.7); ABSOLUTE LYMPHOCYTES 1.9 thou/uL (0.8-5.3); ABSOLUTE MONOCYTES 0.7 thou/uL (0.0-1.2); ABSOLUTE NEUTROPHILS 4.6 thou/uL (1.6-8.1); BASOPHILS 1.4 %; EOSINOPHILS 3.1 %; HEMATOCRIT 39.5 % (42.0-52.0); HEMOGLOBIN 13.8 gm/dL (14.0-18.0); LYMPHOCYTES 25.1 %; MCH 32.7 pg (26.0-34.0); MCV 93.4 fL (80.0-100.0); NUCLEATED RBCS 0 /100WBC; PLATELET COUNT* 210 thou/uL (150-400); POLYS 61.4 %; RBC 4.23 mil/uL (4.50-6.00); RDW-CV 14.5 % (10.5-14.5); WBC 7.6 thou/uL (4.0-11.0)
[2019-09-17 21:27] LABS: APTT 30.3 Seconds (25.0-31.3); CALCIUM 8.1 mg/dL (8.5-10.1); CREATININE 1.3 mg/dL (0.6-1.3); POTASSIUM 3.6 mmol/L (3.5-5.1); PROTIME 10.7 Seconds (9.20-11.50)
[2019-09-17 21:37] LABS: ALBUMIN 3.7 g/dL (3.4-5.0); MAGNESIUM 1.8 mg/dL (1.8-2.4); TOTAL BILIRUBIN 0.3 mg/dL (<0.1-1.0); TOTAL PROTEIN 6.9 g/dL (6.4-8.2)
[2019-09-17 22:37] VITALS: BP 120/67
--- NOTE | 2019-09-18 10:13 | EKG ---
[place] [address] ELECTROCARDIOGRAM REPORT Name: BILLYBHARAT DUGAN Room: [facility]#: [id number] Admission: 09/17/19 Attend Phys: Discharge: 09/17/19 Date of : 41 Date of Service: 09/17/192055 Report #: [id number] THIS REPORT FOR: //name// [facility] ED Test Date: 2019-09-17 Test Time: 20:56:09 Pat Name: BHARAT CERVANTES Department: Room: Gender: Ceramics Technician: : 1945 Requested By: Lucien Barnett Order Number: [id number] MD: Jed Rock Measurements Intervals [place] Rate: 64 P: 66 AR: 109 QRS: 91 QRSD: 105 T: 60 QT: 434 QTc: 448 Interpretive Statements Sinus rhythm Atrial premature complex Short AR interval Right axis deviation Compared to ECG 03/03/2019 18:02:18 Atrial premature complex(es) now present Electronically Signed On 09-18-2019 10:11:46 CDT by Jed Rock [email or web address] <ELECTRONICALLY SIGNED> By: Jed Rock MD, [facility] 09/18/19 1011 55 55 Jed Rock MD, [facility] /EPI
== END 2019-09-17 22:38 | disposition left against medical advice (07) ==
LOC: M.ERS 20:54
PROVIDERS: Emergency Medicine Emergency Medical Services
DX: R07.89 Other chest pain (principal); I48.91 Unspecified atrial fibrillation; I25.10 Atherosclerotic heart disease of native coronary artery without angina pectoris; J44.9 Chronic obstructive pulmonary disease, unspecified; Z85.118 Personal history of other malignant neoplasm of bronchus and lung; Z87.891 Personal history of nicotine dependence; Z88.8 Allergy status to other drugs, medicaments and biological substances

== ENCOUNTER → 2019-11-03 | Outpatient (CLI) | payer OTHER | LOC: M.MRI 13:54 | PROVIDERS: ATTEND Internal Medicine | DX: G45.1 Carotid artery syndrome (hemispheric) (principal); J43.1 Panlobular emphysema; I48.0 Paroxysmal atrial fibrillation; I25.119 Atherosclerotic heart disease of native coronary artery with unspecified angina pectoris; E78.2 Mixed hyperlipidemia; M62.50 Muscle wasting and atrophy, not elsewhere classified, unspecified site ==

== ENCOUNTER 2020-09-04 12:15 | Inpatient (IN) | payer OTHER ==
[~2020-09-04] VITALS: Ht 180.3 cm; Wt 50.3 kg
[2020-09-04 12:26] VITALS: BP 101/69
[2020-09-04 13:02] LABS: ABSOLUTE BASOPHILS 0.1 thou/uL (0.0-0.2); ABSOLUTE EOSINOPHILS 0.1 thou/uL (0.0-0.7); ABSOLUTE LYMPHOCYTES 1.5 thou/uL (0.8-5.3); ABSOLUTE MONOCYTES 0.7 thou/uL (0.0-1.2); ABSOLUTE NEUTROPHILS 5.4 thou/uL (1.6-8.1); BASOPHILS 1.1 %; HEMATOCRIT 38.4 % (42.0-52.0); HEMOGLOBIN 13.5 gm/dL (14.0-18.0); LYMPHOCYTES 19.4 %; MCH 33.1 pg (26.0-34.0); MCHC 35.1 g/dL (28.0-37.0); MCV 94.4 fL (80.0-100.0); MPV 7.8 fl. (7.2-11.1); NUCLEATED RBCS 0 /100WBC; PLATELET COUNT* 216 thou/uL (150-400); POLYS 69.5 %; RBC 4.06 mil/uL (4.50-6.00); RDW-CV 14.2 % (10.5-14.5); WBC 7.8 thou/uL (4.0-11.0)
[2020-09-04 13:17] LABS: CALCIUM 8.5 mg/dL (8.5-10.1); CREATININE 1.3 mg/dL (0.6-1.3); POTASSIUM 4.1 mmol/L (3.5-5.1)
[2020-09-04 13:27] LABS: ALBUMIN 3.4 g/dL (3.4-5.0); TOTAL BILIRUBIN 0.4 mg/dL (<0.1-1.0); TOTAL PROTEIN 6.9 g/dL (6.4-8.2)
[2020-09-04 14:30] VITALS: BP 119/68
[2020-09-04 15:10] VITALS: BP 127/64
[2020-09-04 16:00] VITALS: BP 120/62
--- NOTE | 2020-09-04 17:45 | EKG ---
[place] [address] ELECTROCARDIOGRAM REPORT Name: BHARAT CERVANTES Room: [address] ADM IN .R.#: [id number] Admission: 09/04/20 Attend Phys: Nelsy Keith Discharge: Date of : 41 Date of Service: 09/04/20 1224 Report #: [id number] THIS REPORT FOR: //name// [facility] ED Test Date: 2020-09-04 Test Time: 12:24:37 Pat Name: BHARAT CERVANTES Department: Room: [facility] Gender: M Commodity Manager: TDS : 1945 Requested By: Lucien Barnett Order Number: [id number] MD: Breezy Guy Measurements Intervals [place] Rate: 57 P: 72 MO: 113 QRS: 86 QRSD: 97 T: 67 QT: 420 QTc: 409 Interpretive Statements Sinus rhythm Borderline short [place] interval Borderline right axis deviation Compared to ECG 09/17/2019 20:56:09 Atrial premature complex(es) no longer present Electronically Signed On 09-04-2020 17:45:45 CDT by Breezy Guy [email or web address] <ELECTRONICALLY SIGNED> By: Breezy Guy MD, [facility] 09/04/20 1745 1224 1224 Breezy Guy MD, [facility] /EPI
[2020-09-04 20:00] VITALS: BP 102/64
[2020-09-04 23:42] VITALS: BP 94/50
[2020-09-05 04:53] VITALS: BP 90/58
[2020-09-05 06:26] LABS: ABSOLUTE BASOPHILS 0.1 thou/uL (0.0-0.2); ABSOLUTE EOSINOPHILS 0.2 thou/uL (0.0-0.7); ABSOLUTE LYMPHOCYTES 1.7 thou/uL (0.8-5.3); ABSOLUTE MONOCYTES 0.7 thou/uL (0.0-1.2); ABSOLUTE NEUTROPHILS 5.2 thou/uL (1.6-8.1); BASOPHILS 1.1 %; EOSINOPHILS 2.6 %; HEMATOCRIT 38.3 % (42.0-52.0); HEMOGLOBIN 13.3 gm/dL (14.0-18.0); LYMPHOCYTES 21.4 %; MCH 32.2 pg (26.0-34.0); MCHC 34.7 g/dL (28.0-37.0); MCV 92.8 fL (80.0-100.0); MONOCYTES 8.6 %; MPV 7.9 fl. (7.2-11.1); NUCLEATED RBCS 0 /100WBC; POLYS 66.3 %; RBC 4.13 mil/uL (4.50-6.00); RDW-CV 13.9 % (10.5-14.5); WBC 7.8 thou/uL (4.0-11.0)
[2020-09-05 06:31] LABS: PLATELET COUNT* 98 thou/uL (150-400)
[2020-09-05 06:32] LABS: ANION GAP 7 mmol/L (7-16); BUN 17 mg/dL (7-18); CALCIUM 8.3 mg/dL (8.5-10.1); CHLORIDE 107 mmol/L (98-107); CO2 27 mmol/L (21-32); CREATININE 1.3 mg/dL (0.6-1.3); GLUCOSE 107 mg/dL (70-99); MAGNESIUM 1.9 mg/dL (1.8-2.4); POTASSIUM 4.1 mmol/L (3.5-5.1); SODIUM 141 mmol/L (136-145)
[2020-09-05 06:45] LABS: CHOLESTEROL 188 mg/dL (<200); HDL CHOLESTEROL 59 mg/dL (>40); LDL CHOLESTEROL 115 mg/dL (<100); TC:HDL 3.2 Ratio (Not establshd); TRIGLYCERIDE 74 mg/dL (<150); VLDL 15 mg/dL (<40)
[2020-09-05 06:47] LABS: SERUM ASSESSMENT Clear
[2020-09-05 08:00] VITALS: BP 114/74
[2020-09-05 12:29] VITALS: BP 134/78
--- NOTE | 2020-09-05 12:35 | EKG ---
[place] [address] ELECTROCARDIOGRAM REPORT Name: BHARAT CERVANTES Room: [address] ADM IN M.R.#: [id number] Admission: 09/04/20 Attend Phys: Nelsy Keith Discharge: Date of : 41 Date of Service: 09/05/20 0553 Report #: [id number] THIS REPORT FOR: //name// [facility] Test Date: 2020-09-05 Test Time: 05:53:23 Pat Name: BHARAT CERVANTES Department: Room: [address] Gender: M Bench Worker Apprentice: CARMEL : 1945 Requested By: Nelsy Keith Order Number: [id number] MD: Haroldo Luis Measurements Intervals [place] Rate: 65 P: 75 [place]: 101 QRS: 86 QRSD: 103 T: 62 QT: 421 QTc: 438 Interpretive Statements Sinus rhythm Short [place] interval Borderline right axis deviation Abnormal R-wave progression, early transition Compared to ECG 09/04/2020 12:24:37 No significant changes Electronically Signed On 09-05-2020 12:35:27 CDT by Haroldo Luis [email or web address] <ELECTRONICALLY SIGNED> By: Haroldo Luis MD, [facility] 09/05/20 1235 0553 0553 Haroldo Luis MD, [facility] /EPI
--- NOTE | 2020-09-05 13:37 | 2DMMODE ---
[place] [address] 2 D/M-MODE ECHOCARDIOGRAM Name: BHARAT CERVANTES Room: [address] IN [facility]#: [id number] Admission: 09/04/20 Attend Phys: Nelsy Keith Discharge: Date of : 41 Date of Service: 09/05/20 1336 Report #: [id number] THIS REPORT FOR: cc: Mila Caballero MD, Lin W. MD Liston, Michael J. MD [facility] ~ APPROVED REPORT Study performed: 09/05/2020 11:36:25 EXAM: Comprehensive 2D, Doppler, and color-flow Echocardiogram Patient Location: In-Patient Room #: [facility] [place] Status: routine BSA: 1.92 HR: 73 bpm BP: 134/78 mmHg Rhythm: NSR Other Information Study Quality: Good Indications Chest Pain 2D Dimensions IVSd: 8.83 (7-11mm) LVOT Diam: 19.89 (18-24mm) LVDd: 32.25 mm PWd: 9.67 (7-11mm) LVDs: 21.87 (25-40mm) Aortic Root: 26.52 mm Volumes Left Atrial Volume (Systole) LA ESV Index: 15.90 mL/m2 Aortic Valve AoV Peak Mathieu.: 1.07 m/s AO Peak Gr.: 4.57 mmHg LVOT Max P.32 mmHg AO Mean Gr.: 2.18 mmHg LVOT Mean P.78 mmHg LVOT Max V: 1.04 m/s AO V2 VTI: 19.84 cm LVOT Mean V: 0.60 m/s MICHAEL (VTI): 3.08 cm2 LVOT V1 VTI: 19.66 [place] [address] 2 D/M-MODE ECHOCARDIOGRAM Name: BHARAT CERVANTES Room: [address] IN .R.#: [id number] Admission: 09/04/20 Attend Phys: Nelsy Keith Discharge: Date of : 41 Date of Service: 09/05/20 1336 Report #: [id number] Mitral Valve E/A Ratio: 0.70 MV Decel. Time: 227.91 ms MV E Max Mathieu.: 0.57 m/s MV PHT: 66.09 ms MVA (PHT): 3.33 cm2 TDI E/Lateral E': 7.13 E/Medial E': 7.13 Medial E' Mathieu.: 0.08 m/s Lateral E' Mathieu.: 0.08 m/s Pulmonary Valve PV Peak Mathieu.: 1.25 m/s PV Peak Gr.: 6.30 mmHg Tricuspid Valve RAP Estimate: 5.00 mmHg TR Peak Gr.: 29.85 mmHg RVSP: 34.00 mmHg PA Pressure: 34.00 mmHg Left Ventricle The left ventricle is normal size. There is normal LV segmental wall motion. There is normal left ventricular wall thickness. Left ventricular systolic function is normal. LVEF is 65-70%. Grade I - abnormal relaxation pattern. Right Ventricle The right ventricle is normal size. The right ventricular systolic function is normal. Atria The left atrium size is normal. The right atrium size is normal. Aortic Valve The aortic valve is normal in structure. No aortic regurgitation is present. There is no aortic valvular stenosis. Mitral Valve The mitral valve is normal in structure. There is no mitral valve regurgitation noted. No evidence of mitral valve stenosis. Tricuspid Valve The tricuspid valve is normal in structure. Mild tricuspid regurgitation. The RVSP is 35-[place] [address] 2 D/M-MODE ECHOCARDIOGRAM Name: BHARAT CERVANTES Room: [address] IN [facility]#: [id number] Admission: 09/04/20 Attend Phys: Nelsy Keith Discharge: Date of : 41 Date of Service: 09/05/20 1336 Report #: [id number] Pulmonic Valve The pulmonary valve is normal in structure. There is no pulmonic valvular regurgitation. Great Vessels The aortic root is normal in size. IVC is normal in size and collapses >50% with inspiration. Pericardium There is no pericardial effusion. <Conclusion> The left ventricle is normal size. There is normal left ventricular wall thickness. Left ventricular systolic function is normal. LVEF is 65-70%. Grade I - abnormal relaxation pattern. There is normal LV segmental wall motion. Mild tricuspid regurgitation. The RVSP is 35-40 mmHg. IVC is normal in size and collapses >50% with inspiration. <ELECTRONICALLY SIGNED> By: Breezy Guy MD, FACC 09/05/20 1336 1336 1336 Breezy Guy MD, FACC /INF
[2020-09-05 17:26] VITALS: BP 106/72
--- NOTE | 2020-09-05 17:34 | CARDNUC ---
[place] [address] CARDIAC NUCLEAR IMAGING REPORT Name: BILLYBHARAT Roxy Room: [address] M.R.#: [id number] Admission: 09/04/20 Attend Phys: Nelsy Keith Discharge: Date of : 41 Date of Service: 09/05/20 1734 Report #: [id number] THIS REPORT FOR: cc: Mila Caballero MD, Lin W. MD Liston, Michael J. MD [facility] ~ APPROVED REPORT Study performed: 09/05/2020 12:43:52 Exam: Nuclear Stress Test Indication: weakness, difficulty walking, increased dyspnea, chest discomfort. Patient Location: In-Patient Room #: 203 Stress Tech: Raissa Tolentino Stress Nurse: Negin Reed R.N. Ht: 5 ft 11 in Wt: 140 lbs BSA: 1.81 m2 BMI: 19.52 Medical History Medical History: Chest pain, dyspnea, s/p CAD-PCI, weakness, difficulty walking, unsteady gait, increased fatigue, dyslipidemia, left subclavian stenosis bypass, hypotension, HX AFib, chronic anticoagulation, HX lung cancer, atherosclerosis, hand weakness, [place], COPD. Medications: Atorvastatin, ASA 81 mg, Ranexa, cardizem, eliquis. Allergies: Tamsulosin Cardiac Risk Factors: Age, Hyperlipidemia, SOB, Past Smoker, HX AFib, atherosclerosis, COPD. Previous Cardiac Procedures: PCI Pretest Chest Pain Characteristics: No chest pain Exercise History: Sedentary Physical Disabilities: Weakness, difficulty walking, unsteady gait, AFib. Meds Held (24 hrs): ALL/NPO Stress Test Details Stress Test: Pharmacologic stress testing performed using 0.4 mg of regadenoson per 5 mL given IV over 10 seconds. Reason for pharmacologic stress test: Weakness, difficulty walking, unsteady gait, [place] [address] CARDIAC NUCLEAR IMAGING REPORT Name: BHARAT CERVANTES [address] [id number] Admission: 09/04/20 Attend Phys: Nelsy Keith Discharge: Date of : 41 Date of Service: 09/05/20 1734 Report #: [id number] Resting HR: 78 bpm Max Heart Rate (APMHR): 143 bpm Max HR Achieved: 108 bpm Target HR (85% APMHR): 121 bpm % of APMHR: 75 Recovery HR: 98 bpm BP Resting BP: 121/98 mmHg Max BP: 187/112 mmHg ECG Resting ECG: Sinus Rhythm Stress ECG: Sinus Tachycardia ST Change: None Arrhythmia: None Recovery ECG: Sinus Rhythm Recovery ST Change: None Recovery Arrhythmia: None Clinical Reason for Termination: Completed protocol Stress Symptoms: dyspnea Exercise duration: 00 min 00 sec Exercise capacity: 1.00 METs Patient tolerated Lexiscan infusion without significant cardiac symptoms. Nurse Comments A 75 year old male inpatient presented for a sitting Lexiscan Nuclear Stress Test. Test well tolerated. Recovery unremarkable. Patient was stable and stated he felt better when escorted via wheelchair to Nuclear Medicine for imaging. Stress ECG Conclusion The baseline twelve-lead EKG shows sinus rhythm without significant ST segment or T wave abnormality. EKGs obtained during and post Lexiscan infusion show sinus rhythm and sinus tachycardia with no significant ST segment or T wave changes when compared to baseline. There were no stress-induced arrhythmias. NM EXAM: Myocardial Perfusion REST/STRESS Imaging Protocol: Rest Tc-99m/Stress Tc-99m 1 day Resting Data Rest SPECT myocardial perfusion imaging was performed in supine position 30 minutes following the intravenous injection of 11.2 [place] [address] CARDIAC NUCLEAR IMAGING REPORT Name: BHARAT CERVANTES Roxy [address] [id number] Admission: 09/04/20 Attend Phys: Nelsy Keith Discharge: Date of : 41 Date of Service: 09/05/20 1734 Report #: [id number] of Tc-99m Sestamibi. Time of rest injection: 12:25 The images were gated to evaluate regional wall motion and calculate left ventricular ejection fraction. Administration Route: IV Administration Site: Right Arm Pharmacologic Stress Pharmacologic stress test was performed by injecting Regadenoson 0.4 mg IV push followed by the intravenous injection of 30.6 mCi of Tc-99m Sestamibi. Time of stress injection: 14:05 Administration Route: IV Administration Site: Right Arm Heart Rate at time of stress injection: 108 bpm. Gated Stress SPECT was performed 40 minutes after stress injection. The images were gated to evaluate regional wall motion and calculate left ventricular ejection fraction. Prone imaging was performed. Study Quality Study: Good Artifact: Mild Diaphragmatic artifact Study Data At rest, the left ventricular ejection fraction was 72%.. Post stress, the left ventricular ejection was 89%.. TID = 0.84. Perfusion Perfusion images obtained in the supine position at rest and post Lexiscan stress show photopenia in the inferior wall that resolves completely with post stress prone imaging consistent with diaphragmatic attenuation artifact. No other defects were identified. Wall Motion Normal left ventricular wall motion. Nuclear Conclusion ECG Findings: negative for ischemia Clinical Findings: negative for ischemia Nuclear Findings: negative for ischemia Exercise Capacity: not assessed Left Ventricular Function: [place] [address] CARDIAC NUCLEAR IMAGING REPORT Name: BHARAT CERVANTES Room: [address]#: [id number] Admission: 09/04/20 Attend Phys: Nelsy Keith Discharge: Date of : 41 Date of Service: 09/05/20 1734 Report #: [id number] Risk Study: low Perfusion images show no defect to suggest infarct or ischemia. Left ventricular systolic function appears normal on gated studies. This is a low risk study. <Conclusion> The baseline twelve-lead EKG shows sinus rhythm without significant ST segment or T wave abnormality. EKGs obtained during and post Lexiscan infusion show sinus rhythm and sinus tachycardia with no significant ST segment or T wave changes when compared to baseline. There were no stress-induced arrhythmias. <ELECTRONICALLY SIGNED> By: Breezy Guy MD, [facility] 09/05/20 1734 1734 1734 Breezy Guy MD, FACC /INF
[2020-09-05 20:00] VITALS: BP 112/66
[2020-09-06] VITALS (8 sets, daily range): BP systolic 97–147; BP diastolic 60–79
--- NOTE | 2020-09-06 12:57 | CON ---
[address] [address] CONSULTATION Name: BHARAT CERVANTES Room: [address] [place]ie#: [id number] Admission: 09/04/20 Attend Phys: Vijay Arnold Discharge: Date of : 41 Report #: [id number] THIS REPORT FOR: cc: Mila Caballero MD, Lin W. MD Liston, Michael J. MD [facility] ~ DOC #: [id number] cc: MD Breezy Riggs MD DATE OF CONSULTATION: 09/05/2020 CARDIOLOGY CONSULT INDICATION: Chest tightness. HISTORY OF PRESENT ILLNESS: The patient is a 75-year-old gentleman known to myself. He has a history of coronary artery disease with previous percutaneous coronary intervention of the first obtuse marginal branch in 2018. He also has a history of left subclavian stenosis, status post bypass for his left subclavian stenosis. Cardiac risk factors include dyslipidemia for which he is on medication. He also has a history of paroxysmal atrial fibrillation. He has been maintaining sinus rhythm and has been chronically anticoagulated without bleeding problems. He presented to the hospital with multiple vague complaints including chest tightness somewhat exertional and easy fatigability. EKG shows sinus rhythm with no acute ST- or T-wave abnormalities. Troponins are all unremarkable. PAST MEDICAL HISTORY: 1. Coronary artery disease as outlined above. 2. Percutaneous coronary intervention to the obtuse marginal branch of the circumflex in 2018. 3. Left subclavian stenosis, status post bypass procedure. 4. Hyperlipidemia. FAMILY HISTORY: Positive for coronary artery disease. SOCIAL HISTORY: The patient quit smoking in 2008. He does not drink alcohol. He is . His is with him. REVIEW OF SYSTEMS: As per HPI. [address] [address] CONSULTATION Name: BHARAT CERVANTES Room: [address] Beny Levin#: [id number] Admission: 09/04/20 Attend Phys: Vijay Arnold Discharge: Date of : 41 Report #: [id number] PHYSICAL EXAMINATION: VITAL SIGNS: Stable. Blood pressure is 114/74, pulse is 63 and regular. GENERAL: This is a pleasant gentleman in no distress. Mood and affect appropriate. HEENT: Extraocular muscles intact. Mucous membranes are moist. NECK: Examination of the neck shows no jugular venous distention. There is a well-healed scar over the left clavicular area. CHEST: Clear to auscultation. CARDIAC: Reveals a regular rhythm without gallop or murmur. ABDOMEN: Reveals normal bowel sounds. Abdomen is soft, nontender. EXTREMITIES: Shows no edema. Peripheral pulses 1+. SKIN: Warm and dry. LABORATORY DATA: A 12-lead EKG shows sinus rhythm with no acute ST- or T-wave abnormalities. IMPRESSION AND RECOMMENDATIONS: 1. Chest discomfort suggestive of progressive/unstable angina. We will proceed with noninvasive stress testing and echocardiography at this time. 2. Coronary artery disease. Continue current medications including Eliquis 5 mg twice daily, daily aspirin, atorvastatin, diltiazem. 3. Paroxysmal atrial fibrillation, maintaining sinus rhythm at this time. 4. Hypercoagulable state due to paroxysmal atrial fibrillation, chronically anticoagulated. 5. Chronic anticoagulation, presently tolerating Eliquis without bleeding problems. 6. Easy fatigability. Etiology not clear. Checking TSH to rule out hypothyroidism. MD OBI Thurman/MELI <ELECTRONICALLY SIGNED> By: Breezy Guy MD, FACC 09/06/20 1257 0849 [id number] Guy MD, FACC /nt
[2020-09-07] VITALS (7 sets, daily range): BP systolic 81–115; BP diastolic 46–70
[2020-09-08 04:11] VITALS: BP 118/75
[2020-09-08 04:46] LABS: HEMATOCRIT 36.6 % (42.0-52.0); HEMOGLOBIN 12.6 gm/dL (14.0-18.0); MCH 32.4 pg (26.0-34.0); MCHC 34.5 g/dL (28.0-37.0); MPV 8.5 fl. (7.2-11.1); RBC 3.9 mil/uL (4.50-6.00); WBC 11.5 thou/uL (4.0-11.0)
[2020-09-08 04:56] LABS: CALCIUM 7.9 mg/dL (8.5-10.1); CREATININE 1.3 mg/dL (0.6-1.3); POTASSIUM 4.1 mmol/L (3.5-5.1)
[2020-09-08 07:53] VITALS: BP 124/80
[2020-09-08 12:00] VITALS: BP 129/67
[2020-09-08 16:00] VITALS: BP 119/76
[2020-09-09 00:11] VITALS: BP 115/71
[2020-09-09 03:40] VITALS: BP 110/69
[2020-09-09 08:00] VITALS: BP 104/64
--- NOTE | 2020-09-11 22:25 | CON ---
[address] [address] CONSULTATION Name: BILLYBHARAT Roxy Room: [address] IN .R.#: [id number] Admission: 09/04/20 Attend Phys: Vijay Arnold Discharge: 09/09/20 Date of : 41 Report #: [id number] THIS REPORT FOR: cc: Mila Caballero MD, Lin W. MD Khosla, Parveen K. MD ~ DOC #: [id number] Jame Zapata MD DATE OF CONSULTATION: 09/06/2020 HISTORY OF PRESENT ILLNESS: This 75-year-old male patient who was seen by me for stroke-like symptoms. I discussed the patient with Dr. Keith who consulted me. I do not know what exactly his the symptom was, but apparently he had speech difficulty. He was disoriented. Subsequently, his blood pressure was found to be low. I reviewed long list of his records in the computer, it looks like he has been evaluated here for multiple symptoms. 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 REVIEW OF SYSTEMS: Indicate the patient is seen by Cardiology. He has a history of atrial fibrillation. He is chronically anticoagulated. He has a history of lung carcinoma, bladder tumor, atrial fibrillation, subclavian artery stenosis. He had a colonoscopy. He does not know why. There was a relevant 14-point review of system. PAST MEDICAL HISTORY: Positive for stroke-like symptoms one time, apparently he was also given TPA. FAMILY HISTORY: Unremarkable and negative for early age stroke. SOCIAL HISTORY: Lives with his and I talked to his . PHYSICAL EXAMINATION: NEUROLOGIC: Indicate that the patient is alert, responsive, able to follow simple and complex commands, but his memory looks poor. His cranial nerve examination is unremarkable and I do not find any facial weakness. His neuromuscular examination is symmetrical. VITAL SIGNS: His blood pressure is 100/64, respirations 18, pulse is 76. LABORATORY DATA: His platelet count actually is low at 98. IMPRESSION: As far as his neurological symptom is concerned, I do not think he needs further neurological workup, but he needs a workup for his low platelet and systemic cause for his hypotension including any possibility [place] [address] CONSULTATION Name: BHARAT CERVANTES Room: [address]#: [id number] Admission: 09/04/20 Attend Phys: Vijay Arnold Discharge: 09/09/20 Date of : 41 Report #: [id number] or any other bleed because of being on anticoagulation. I will defer that further evaluation and management to hospitalist. I do not think any further neurological workup is necessary at the moment. If these spells continue, we can give him a trial with Lamictal or Keppra. Presently, I will not be inclined to start him on Lamictal because that will change the metabolism of his Eliquis and Keppra caused a pretty significant drowsiness. I discussed all of it with the patient's in detail and I talked to Dr. Keith before and after seeing the patient. More than 50 minutes of time was spent taking care of this patient today and majority was spent counseling and coordinating. Thank you very much for this referral. Jame Zapata MD PK/PARISH/SKYLER <ELECTRONICALLY SIGNED> By: Jame Zapata MD 09/11/20 2225 1838 [id number] Zapata MD /nt
== END 2020-09-09 14:13 | disposition home health service (06) | DRG 69 ==
LOC: M.ERS 12:15 → M.2W 13:31 → M.TBA-ER 13:31 → M.2W 13:31
PROVIDERS: Emergency Medicine Emergency Medical Services; ADMIT Internal Medicine; ATTEND Internal Medicine
DX: G45.9 Transient cerebral ischemic attack, unspecified (principal); E43 Unspecified severe protein-calorie malnutrition; D68.69 Other thrombophilia; K56.7 Ileus, unspecified; Z68.1 Body mass index [BMI] 19.9 or less, adult; J44.9 Chronic obstructive pulmonary disease, unspecified; E78.5 Hyperlipidemia, unspecified; I48.0 Paroxysmal atrial fibrillation; G20 Parkinson's disease; R33.9 Retention of urine, unspecified; I25.10 Atherosclerotic heart disease of native coronary artery without angina pectoris; Z20.822 Contact with and (suspected) exposure to COVID-19; Z85.118 Personal history of other malignant neoplasm of bronchus and lung; Z85.51 Personal history of malignant neoplasm of bladder; Z79.82 Long term (current) use of aspirin; Z79.899 Other long term (current) drug therapy; Z88.1 Allergy status to other antibiotic agents; R07.89 Other chest pain

== ENCOUNTER → 2020-11-17 | Outpatient (CLI) | payer OTHER ==
[2020-11-17 09:43] LABS: ABSOLUTE BASOPHILS 0.1 thou/uL (0.0-0.2); ABSOLUTE EOSINOPHILS 0.1 thou/uL (0.0-0.7); ABSOLUTE LYMPHOCYTES 1.7 thou/uL (0.8-5.3); ABSOLUTE MONOCYTES 0.7 thou/uL (0.0-1.2); ABSOLUTE NEUTROPHILS 5.4 thou/uL (1.6-8.1); BASOPHILS 1.3 %; EOSINOPHILS 1.3 %; HEMATOCRIT 44.2 % (42.0-52.0); LYMPHOCYTES 20.9 %; MCH 31.8 pg (26.0-34.0); MCV 93.6 fL (80.0-100.0); MONOCYTES 8.6 %; MPV 7.5 fl. (7.2-11.1); NUCLEATED RBCS 0 /100WBC; PLATELET COUNT* 241 thou/uL (150-400); POLYS 67.9 %; RBC 4.72 mil/uL (4.50-6.00); RDW-CV 14.6 % (10.5-14.5); WBC 7.9 thou/uL (4.0-11.0)
== END ==
LOC: M.LAB 09:01
PROVIDERS: ATTEND Internal Medicine
DX: D69.6 Thrombocytopenia, unspecified (principal)

== ENCOUNTER 2021-06-01 17:41 | Observation (INO) | payer OTHER ==
[~2021-06-01] VITALS: Ht 180.3 cm; Wt 64.6 kg
[2021-06-01 17:48] VITALS: BP 131/83
[2021-06-01 18:20] LABS: ABSOLUTE LYMPHOCYTES 0.8 thou/uL (0.8-5.3); ABSOLUTE NEUTROPHILS 7.1 thou/uL (1.6-8.1); BASOPHILS 0.4 %; HEMATOCRIT 45.8 % (42.0-52.0); HEMOGLOBIN 15.6 gm/dL (14.0-18.0); LYMPHOCYTES 9.4 %; MCH 32.2 pg (26.0-34.0); MCV 94.6 fL (80.0-100.0); MONOCYTES 10.6 %; MPV 8.8 fl. (7.2-11.1); NUCLEATED RBCS 0 /100WBC; PLATELET COUNT* 159 thou/uL (150-400); POLYS 79.6 %; RBC 4.84 mil/uL (4.50-6.00); RDW-CV 14.7 % (10.5-14.5)
[2021-06-01 18:32] LABS: CALCIUM 8.9 mg/dL (8.5-10.1); CREATININE 1.4 mg/dL (0.6-1.3); POTASSIUM 4.6 mmol/L (3.5-5.1)
[2021-06-01 18:42] LABS: ALBUMIN 4.2 g/dL (3.4-5.0); TOTAL BILIRUBIN 0.6 mg/dL (<0.1-1.0)
[2021-06-01 18:42] LABS: URINE BILIRUBIN NEGATIVE (Negative); URINE BLOOD NEGATIVE (Negative); URINE CLARITY CLEAR; URINE COLOR YELLOW; URINE GLUCOSE-RANDOM NEGATIVE (Negative); URINE KETONES TRACE (Negative); URINE LEUKOCYTES-REFLEX NEGATIVE (Negative); URINE NITRITE-REFLEX NEGATIVE (Negative); URINE PROTEIN NEGATIVE (Negative); URINE SPECIFIC GRAVITY 1.025 (1.005-1.030); URINE UROBILINOGEN 0.2 E.U./dl (0.2-1.0)
[2021-06-01 23:30] VITALS: BP 128/56
[2021-06-01 23:55] VITALS: BP 123/81
[2021-06-02 04:00] VITALS: BP 114/72
--- NOTE | 2021-06-02 04:06 | NUR ---
Admission a 0000. He is having COPD exacerbation. At this time his r/a O2 sat is 92-95%. He did get very short of air with walk to bathroom, order recieved. At this time meds are not ordered except the previous order mentioned. He did have a large BM this morning. He is sleeing at this time.
[2021-06-02 04:33] VITALS: BP 155/80
[2021-06-02] MEDS ORDERED: PREDNISONE 10 M10 MG PO (10:12)
[2021-06-02 12:00] VITALS: BP 113/67
--- NOTE | 2021-06-02 12:53 | EKG ---
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 Analyst: PATRICK : 1945 Requested By: Lucien Barnett Order Number: [id number] MD: Codey Camejo Measurements Intervals [place] Rate: 105 P: 75 OR: 108 QRS: 88 QRSD: 102 T: 37 QT: 334 QTc: 442 Interpretive Statements Sinus tachycardia Atrial premature complex Borderline right axis deviation Minimal ST depression, inferior leads Compared to ECG 09/05/2020 05:53:23 Atrial premature complex(es) now present ST (T wave) deviation now present Sinus rhythm no longer present Short OR interval no longer present Electronically Signed On 06-02-2021 12:53:03 [employer] by Codey Camejo [email or web address] <ELECTRONICALLY SIGNED> By: Loki Camejo MD, [facility] 06/02/21 1253 08 180 Loki Camejo MD, [facility] /EPI
[2021-06-02 13:10] VITALS: BP 113/67
--- NOTE | 2021-06-02 13:16 | NUR ---
DISCONTINUE IV AND TELE. PT UNDERTSANDS ALL FOLLOW UP ORDERS. WILL DISCHARGE TO HOME. WILL CONTINUE TO ASSESS.
== END 2021-06-02 13:45 | disposition home or self-care (01) ==
LOC: M.ERS 17:41 → M.TBA-ER 21:31 → M.ERS 21:31 → M.2W 23:35
PROVIDERS: Emergency Medicine Emergency Medical Services; ADMIT Internal Medicine; ATTEND Internal Medicine
DX: J44.1 Chronic obstructive pulmonary disease with (acute) exacerbation (principal); Z20.822 Contact with and (suspected) exposure to COVID-19; R53.1 Weakness; R00.0 Tachycardia, unspecified; I25.10 Atherosclerotic heart disease of native coronary artery without angina pectoris; I48.91 Unspecified atrial fibrillation; Z87.891 Personal history of nicotine dependence; Z79.899 Other long term (current) drug therapy; Z88.8 Allergy status to other drugs, medicaments and biological substances; Z95.5 Presence of coronary angioplasty implant and graft